=== PATIENT | male | born 1960 | race Caucasian/White ===

== ENCOUNTER 2021-09-15 18:10 | Inpatient (IN) ==
--- NOTE | 2021-09-15 19:08 | Emergency Department Note ---
Impression & Plan Cellulitis of left lower leg, Osteomyelitis of great toe of left foot ED Provider Note CHIEF COMPLAINT: L great toe infection HISTORY OF PRESENT ILLNESS: Cam Harmon is a 61 year old male with history of HTN, DLD, and DM2 who presents to the Emergency Department for evaluation of worsening infection to his left great toe x 1 week. About a week prior to the time of onset, the patient states that he had developed redness and swelling in his left calf and ankle. At that time, he did notice a callous type wound at the tip of his left great toe, but no open wound or injury that he can recall. The patient visited [facility] on 09/09/21 and was prescribed a 14 day course of Doxycycline for treatment of cellulitis to his cleft ky and ankle. Since he started taking the doxycycline, the patient states that the redness and swelling to his left calf and ankle had started to improve, however, he has since developed a worsening infection to his left great toe. Over the last several days, the skin of his great toe has become blistered and has sloughed off. He has also developed an open wound with drainage of purulent fluid and the redness and swelling has also become much worse. The patient has attempted to clean and debride the wound on his own at home, but as his symptoms have continued despite taking the doxycycline, he went back to [facility] today. While there, the patient had x-rays taken and as there were concerns for Osteomyelitis, he was sent to the ED for further evaluation. The patient does note that he was ill with fevers/chills for about 24 hours after receiving his flu shot last week but otherwise he denies ongoing fevers/chills, sore throat, cough, chest pain, s hortness of breath, abdominal pain, nausea, vomiting, diarrhea or urinary symptoms. Patient denies history of blood clots. He takes bASA daily but no other anticoagulants/antiplatelets. REVIEW OF SYSTEMS: 10 systems were reviewed and were negative unless otherwise stated in HPI as above PHYSICAL EXAM: VITALS: Vitals are noted on the nurse's note and reviewed by myself. Vital signs stable. General: Resting in bed, no acute distress HEENT: Normocephalic, PERRL, EOMI, mucous membranes moist, oropharynx clear Resp: Good inspiratory effort on room air, lung sounds clear bilaterally CV: Regular rate and rhythm, peripheral pulses palpated Abd: Soft, non-tender to palpation Integumentary/MSK: With attention to the LLE, the great toe is significantly erythematous and edematous with ulceration and skin sloughing to the dorsal aspect of the entire toe. There is a 1 cm open wound with discharge of purulent fluid just proximal to the toenail. The remainder of the foot, ankle and calf/camacho are erythematous and edematous with 1+ pitting edema circumferentially. Left medial calf is also tender to palpation. Able to move toes, sensation and d/p pulse intact. No additional open wounds or rashes appreciated. Moving all other extremities without apparent pain or difficulty Neuro: Awake, alert, interacting and answering questions appropriately Differential diagnosis includes cellulitis, abscess, osteomyelitis, MRSA infection, diabetic ulcer, DVT, necrotizing fasciitis, as well as others were considered EMERGENCY DEPARTMENT COURSE: Physical exam and history were performed. Nursing notes, EMR, and medication list were personally reviewed. Patient appears to have a worsening infection to his left great toe for about 1 week despite taking doxycycline for a cellulitic infection to his left lower leg as prescribed by [facility] on 09/09/21. Exam findings as above were concerning for cellulitis and possibly osteomyelitis given the deep wound and proximity to his distal toe. IV access was established, labs were drawn and reviewed by myself as below. Of note, no significant leukocytosis with a WBC 9.24, mild anemia with hgb 12.7, significantly elevated inflammatory markers with ESR at 88 and CRP 7.40 consistent with infectious process. Lactate also elevated at 2.3. On CMP, hypo natremic 130, normal renal indices, hyperglycemic 265 consistent with hx DM2, LFTs with elevated total protein 8.9, hypoalbuminemia 3.1, hyperglobulinemia 59. Blood cultures and wound cultures were also ordered and are pending. X-ray and Venous doppler US were also obtained to assess for bony involvement and possible DVT given the exam findings. Imaging was obtained and reviewed by radiologist and myself as below. Foot x-ray did show focal osteopenia at the distal tuft of the first digit distal phalanx with concern for osteomyelitis with overlying cellulitis. No evidence for DVT on US venous doppler LLE. The patient was reevaluated and appeared to be doing well. He was offered pain medication but declined. I discussed the results of the above findings with my attending, Dr. Villarreal as well as the patient and his at bedside. We discussed the necessity for treatment with IV antibiotics given the findings of cellulitis to his left lower extremity and osteomyelitis of his left great toe. He will also benefit from evaluation by Orthopedics vs. Podiatry for ongoing management of the wound to his toe. IV vancomycin and Zosyn were ordered to begin treatment. [facility]. After discussion, he agreed to evaluate the patient for further management. The patient verbalized his understanding and agreement with the treatment plan as above. The chart was completed utilizing [employer] Speech Voice Recognition Software. Grammatical errors, random word insertions, pronoun errors, and incomplete sentences are an occasional consequence of this system due to software limitations, ambient noise, and hardware issues. Any formal questions or concerns about the content, text, or information contained within the body of this dictation should be directly addressed to the provider for clarification. Past Med/Surg History Medical History (Updated 09/16/21 @ 01:08 by Janeen Miranda PA-C) DM2 (diabetes mellitus, type 2) Dyslipidemia GERD (gastroesophageal reflux disease) HTN (hypertension) Seasonal allergies Surgical History (Updated 09/15/21 @ 23:59 by Janeen Miranda PA-C) No pertinent past surgical history Social History (Updated 09/15/21 @ 23:58 by Janeen Miranda PA-C) Smoking Status: Never smoker Hx Substance Use: No Feels Safe at Home: Yes Allergies Allergies Allergy/AdvReac Type Severity Reaction Status Date / Time No Known Allergies Allergy Unknown Verified 09/15/21 19:53 Home Meds Home Medications Medication Instructions Recorded Confirmed multivitamin 1 tab PO DAILY #0 10/18/07 09/15/21 acetaminophen 500 mg tablet 1,000 mg PO DAILY 09/15/21 09/15/21 aspirin 81 mg tablet,delayed 81 mg PO DAILY 09/15/21 09/15/21 release lisinopril 20 1 tab PO DAILY 09/15/21 09/15/21 mg-hydrochlorothiazide 25 mg tablet loratadine 10 mg tablet (Claritin) 10 mg PO DAILY 09/15/21 09/15/21 metformin 1,000 mg tablet 1,000 mg PO DAILY 10/22/21 10/22/21 omeprazole 20 mg capsule,delayed 20 mg PO DAILY 09/15/21 09/15/21 release Results & Data (ED) Vital Signs Vital Signs - 24 hr 09/15/21 18:14 09/15/21 22:07 09/16/21 00:05 Temperature 36.3 C L Temperature Source Oral Pulse Rate 96 H Pulse Rate [Finger] 80 Respiratory Rate 18 18 18 Respiratory Effort / Characteristics Non-Labored Respiratory Depth Normal Blood Pressure 122/87 Blood Pressure [Left Arm] 123/80 125/77 Blood Pressure Mean 98 Blood Pressure Mean [Left Arm] 94 93 Blood Pressure Position [Left Arm] Lying Pulse Oximetry 100 98 98 Oxygen Delivery Method Room Air Room Air Sepsis Recent Fever Within 48 Hours No Sepsis New/Unexplained Change in Mental Status No Sepsis Action Taken by Nursing No Action Required Laboratory Data Result diagrams: 09/15/21 19:59 09/15/21 21:01 Lab Results 09/15/21 09/15/21 09/15/21 Range/Units 19:59 19:59 19:59 WBC 9.24 (4.8-10.8) K/uL RBC 3.75 L (4.7-6.1) M/uL Hgb 12.7 L (14.0-18.0) g/dL Hct 36.3 L (42-52) % MCV 96.8 (80-100) fL MCH 33.9 (25-34) pg MCHC 35.0 (32-36) g/dL RDW Std Deviation 43.1 (36.4-46.3) fL RDW Coeff of Tavares 12.1 (11.5-14.5) % Plt Count 373 (130-400) K/uL MPV 9.9 (7.4-10.4) fL Immature Gran % (Auto) 0.5 % Neut % (Auto) 62.1 % Lymph % (Auto) 24.8 % [place] % (Auto) 11.0 % Eos % (Auto) 1.1 % Baso % (Auto) 0.5 % Reticulocyte % (Auto) (0.5-2.0) % Neut # (Auto) 5.73 (1.4-6.5) K/uL Lymph # (Auto) 2.29 (1.2-3.4) K/uL [place] # (Auto) 1.02 H (0.11-0.59) K/uL Eos # (Auto) 0.10 (0-0.5) K/uL Baso # (Auto) 0.05 (0-0.2) K/uL Reticulocyte # (0.02-0.10) 10^6/uL Immature Gran # (Auto) 0.05 H (0.00-0.02) K/uL ESR 88 H (0-20) mm/hr PT (9.0-12.0) Seconds INR (0.9-1.1) Sodium 130 L (136-145) mmol/L Potassium (3.5-5.1) mmol/L Chloride 98 (98-107) mmol/L Carbon Dioxide 25 (21-32) mmol/L Anion Gap 7.0 (3-11) BUN 13 (7-18) mg/dl Creatinine 1.11 (0.6-1.4) mg/dl Est Cr Clr Drug Dosing 94.7 ml/min Est GFR ( Amer) 82.0 ml/min Est GFR (Non-Af Amer) 70.8 ml/min BUN/Creatinine Ratio 11.9 (10-20) Glucose 265 H (70-99) mg/dl Osmolality (280-300) mOsm/kg Lactate (0.4-2.0) mmol/L Calcium 9.6 (8.5-10.1) mg/dl Magnesium Cancelled Iron (35-175) mcg/dl TIBC (250-450) mcg/dl Transferrin (200-360) mg/dl Ferritin (8-388) ng/ml Total Bilirubin 0.8 (0.2-1) mg/dl AST (15-37) U/L ALT 133 H (12-78) U/L Alkaline Phosphatase 96 (45-117) U/L Total Creatine Kinase Cancelled C-Reactive Protein 7.40 H (0-0.29) mg/dl Total Protein 8.9 H (6.4-8.2) gm/dl Albumin 3.1 L (3.4-5.0) gm/dl Globulin 5.8 H (2.5-4.0) gm/dl Albumin/Globulin Ratio 0.5 L (0.9-2) Vitamin B12 (193-986) pg/ml Folate (>5.38) ng/ml TSH 0.969 (0.300-4.500) uIu/ml Ethyl Alcohol mg/dL (0-3) mg/dl COVID-19 Eval Order SARS-CoV-2 (PCR) (Negative) Blood Type Antibody Screen 09/15/21 09/15/21 09/15/21 Range/Units 19:59 19:59 19:59 WBC (4.8-10.8) K/uL RBC (4.7-6.1) M/uL Hgb (14.0-18.0) g/dL Hct (42-52) % MCV (80-100) fL MCH (25-34) pg MCHC (32-36) g/dL RDW Std Deviation (36.4-46.3) fL RDW Coeff of Tavares (11.5-14.5) % Plt Count (130-400) K/uL MPV (7.4-10.4) fL Immature Gran % (Auto) % Neut % (Auto) % Lymph % (Auto) % [place] % (Auto) % Eos % (Auto) % Baso % (Auto) % Reticulocyte % (Auto) (0.5-2.0) % Neut # (Auto) (1.4-6.5) K/uL Lymph # (Auto) (1.2-3.4) K/uL [place] # (Auto) (0.11-0.59) K/uL Eos # (Auto) (0-0.5) K/uL Baso # (Auto) (0-0.2) K/uL Reticulocyte # (0.02-0.10) 10^6/uL Immature Gran # (Auto) (0.00-0.02) K/uL ESR (0-20) mm/hr PT (9.0-12.0) Seconds INR (0.9-1.1) Sodium (136-145) mmol/L Potassium (3.5-5.1) mmol/L Chloride (98-107) mmol/L Carbon Dioxide (21-32) mmol/L Anion Gap (3-11) BUN (7-18) mg/dl Creatinine (0.6-1.4) mg/dl Est Cr Clr Drug Dosing ml/min Est GFR ( Amer) ml/min Est GFR (Non-Af Amer) ml/min BUN/Creatinine Ratio (10-20) Glucose (70-99) mg/dl Osmolality (280-300) mOsm/kg Lactate 2.3 H* (0.4-2.0) mmol/L Calcium (8.5-10.1) mg/dl Magnesium Iron (35-175) mcg/dl TIBC (250-450) mcg/dl Transferrin (200-360) mg/dl Ferritin (8-388) ng/ml Total Bilirubin (0.2-1) mg/dl AST (15-37) U/L ALT (12-78) U/L Alkaline Phosphatase (45-117) U/L Total Creatine Kinase C-Reactive Protein (0-0.29) mg/dl Total Protein (6.4-8.2) gm/dl Albumin (3.4-5.0) gm/dl Globulin (2.5-4.0) gm/dl Albumin/Globulin Ratio (0.9-2) Vitamin B12 (193-986) pg/ml Folate (>5.38) ng/ml TSH (0.300-4.500) uIu/ml Ethyl Alcohol mg/dL (0-3) mg/dl COVID-19 Eval Order Covid19 at [facility] SARS-CoV-2 (PCR) NEGATIVE (Negative) Blood Type Antibody Screen 09/15/21 09/15/21 09/15/21 Range/Units 21:01 22:25 22:25 WBC (4.8-10.8) K/uL RBC (4.7-6.1) M/uL Hgb (14.0-18.0) g/dL Hct (42-52) % MCV (80-100) fL MCH (25-34) pg MCHC (32-36) g/dL RDW Std Deviation (36.4-46.3) fL RDW Coeff of Tavares (11.5-14.5) % Plt Count (130-400) K/uL MPV (7.4-10.4) fL Immature Gran % (Auto) % Neut % (Auto) % Lymph % (Auto) % [place] % (Auto) % Eos % (Auto) % Baso % (Auto) % Reticulocyte % (Auto) (0.5-2.0) % Neut # (Auto) (1.4-6.5) K/uL Lymph # (Auto) (1.2-3.4) K/uL [place] # (Auto) (0.11-0.59) K/uL Eos # (Auto) (0-0.5) K/uL Baso # (Auto) (0-0.2) K/uL Reticulocyte # (0.02-0.10) 10^6/uL Immature Gran # (Auto) (0.00-0.02) K/uL ESR (0-20) mm/hr PT (9.0-12.0) Seconds INR (0.9-1.1) Sodium (136-145) mmol/L Potassium 3.9 (3.5-5.1) mmol/L Chloride (98-107) mmol/L Carbon Dioxide (21-32) mmol/L Anion Gap (3-11) BUN (7-18) mg/dl Creatinine (0.6-1.4) mg/dl Est Cr Clr Drug Dosing ml/min Est GFR ( Amer) ml/min Est GFR (Non-Af Amer) ml/min BUN/Creatinine Ratio (10-20) Glucose (70-99) mg/dl Osmolality 287 (280-300) mOsm/kg Lactate 1.3 (0.4-2.0) mmol/L Calcium (8.5-10.1) mg/dl Magnesium 2.0 Iron 28 L (35-175) mcg/dl TIBC 227 L (250-450) mcg/dl Transferrin 169 L (200-360) mg/dl Ferritin 1075.9 H (8-388) ng/ml Total Bilirubin (0.2-1) mg/dl AST 139 H (15-37) U/L ALT (12-78) U/L Alkaline Phosphatase (45-117) U/L Total Creatine Kinase 92 C-Reactive Protein (0-0.29) mg/dl Total Protein (6.4-8.2) gm/dl Albumin (3.4-5.0) gm/dl Globulin (2.5-4.0) gm/dl Albumin/Globulin Ratio (0.9-2) Vitamin B12 (193-986) pg/ml Folate (>5.38) ng/ml TSH (0.300-4.500) uIu/ml Ethyl Alcohol mg/dL (0-3) mg/dl COVID-19 Eval Order SARS-CoV-2 (PCR) (Negative) Blood Type Antibody Screen 09/15/21 09/15/21 09/15/21 Range/Units 22:25 22:25 22:25 WBC (4.8-10.8) K/uL RBC (4.7-6.1) M/uL Hgb (14.0-18.0) g/dL Hct (42-52) % MCV (80-100) fL MCH (25-34) pg MCHC (32-36) g/dL RDW Std Deviation (36.4-46.3) fL RDW Coeff of Tavares (11.5-14.5) % Plt Count (130-400) K/uL MPV (7.4-10.4) fL Immature Gran % (Auto) % Neut % (Auto) % Lymph % (Auto) % [place] % (Auto) % Eos % (Auto) % Baso % (Auto) % Reticulocyte % (Auto) 1.8 (0.5-2.0) % Neut # (Auto) (1.4-6.5) K/uL Lymph # (Auto) (1.2-3.4) K/uL [place] # (Auto) (0.11-0.59) K/uL Eos # (Auto) (0-0.5) K/uL Baso # (Auto) (0-0.2) K/uL Reticulocyte # 0.07 (0.02-0.10) 10^6/uL Immature Gran # (Auto) (0.00-0.02) K/uL ESR (0-20) mm/hr PT 10.4 (9.0-12.0) Seconds INR 1.0 (0.9-1.1) Sodium (136-145) mmol/L Potassium (3.5-5.1) mmol/L Chloride (98-107) mmol/L Carbon Dioxide (21-32) mmol/L Anion Gap (3-11) BUN (7-18) mg/dl Creatinine (0.6-1.4) mg/dl Est Cr Clr Drug Dosing ml/min Est GFR ( Amer) ml/min Est GFR (Non-Af Amer) ml/min BUN/Creatinine Ratio (10-20) Glucose (70-99) mg/dl Osmolality (280-300) mOsm/kg Lactate (0.4-2.0) mmol/L Calcium (8.5-10.1) mg/dl Magnesium Iron (35-175) mcg/dl TIBC (250-450) mcg/dl Transferrin (200-360) mg/dl Ferritin (8-388) ng/ml Total Bilirubin (0.2-1) mg/dl AST (15-37) U/L ALT (12-78) U/L Alkaline Phosphatase (45-117) U/L Total Creatine Kinase C-Reactive Protein (0-0.29) mg/dl Total Protein (6.4-8.2) gm/dl Albumin (3.4-5.0) gm/dl Globulin (2.5-4.0) gm/dl Albumin/Globulin Ratio (0.9-2) Vitamin B12 (193-986) pg/ml Folate (>5.38) ng/ml TSH (0.300-4.500) uIu/ml Ethyl Alcohol mg/dL (0-3) mg/dl COVID-19 Eval Order SARS-CoV-2 (PCR) (Negative) Blood Type O Negative Antibody Screen NEGATIVE 09/15/21 09/15/21 Range/Units 22:25 22:25 WBC (4.8-10.8) K/uL RBC (4.7-6.1) M/uL Hgb (14.0-18.0) g/dL Hct (42-52) % MCV (80-100) fL MCH (25-34) pg MCHC (32-36) g/dL RDW Std Deviation (36.4-46.3) fL RDW Coeff of Tavares (11.5-14.5) % Plt Count (130-400) K/uL MPV (7.4-10.4) fL Immature Gran % (Auto) % Neut % (Auto) % Lymph % (Auto) % [place] % (Auto) % Eos % (Auto) % Baso % (Auto) % Reticulocyte % (Auto) (0.5-2.0) % Neut # (Auto) (1.4-6.5) K/uL Lymph # (Auto) (1.2-3.4) K/uL [place] # (Auto) (0.11-0.59) K/uL Eos # (Auto) (0-0.5) K/uL Baso # (Auto) (0-0.2) K/uL Reticulocyte # (0.02-0.10) 10^6/uL Immature Gran # (Auto) (0.00-0.02) K/uL ESR (0-20) mm/hr PT (9.0-12.0) Seconds INR (0.9-1.1) Sodium (136-145) mmol/L Potassium (3.5-5.1) mmol/L Chloride (98-107) mmol/L Carbon Dioxide (21-32) mmol/L Anion Gap (3-11) BUN (7-18) mg/dl Creatinine (0.6-1.4) mg/dl Est Cr Clr Drug Dosing ml/min Est GFR ( Amer) ml/min Est GFR (Non-Af Amer) ml/min BUN/Creatinine Ratio (10-20) Glucose (70-99) mg/dl Osmolality (280-300) mOsm/kg Lactate (0.4-2.0) mmol/L Calcium (8.5-10.1) mg/dl Magnesium Iron (35-175) mcg/dl TIBC (250-450) mcg/dl Transferrin (200-360) mg/dl Ferritin (8-388) ng/ml Total Bilirubin (0.2-1) mg/dl AST (15-37) U/L ALT (12-78) U/L Alkaline Phosphatase (45-117) U/L Total Creatine Kinase C-Reactive Protein (0-0.29) mg/dl Total Protein (6.4-8.2) gm/dl Albumin (3.4-5.0) gm/dl Globulin (2.5-4.0) gm/dl Albumin/Globulin Ratio (0.9-2) Vitamin B12 1029 H (193-986) pg/ml Folate > 20.00 (>5.38) ng/ml TSH (0.300-4.500) uIu/ml Ethyl Alcohol mg/dL < 3.0 (0-3) mg/dl COVID-19 Eval Order SARS-CoV-2 (PCR) (Negative) Blood Type Antibody Screen Administered Medications Discontinued Medications Vancomycin HCl 2,750 mg/ (Sodium Chloride) 555 mls @ 200 mls/hr IV NOW ONE Stop: 09/16/21 00:09 Last Admin: 09/15/21 22:36 Dose: 200 mls/hr Documented by: [id number] Piperacillin Sod/Tazobactam Sod (Zosyn) 4.5 gm in 120 mls @ 240 mls/hr IV NOW ONE Stop: 09/15/21 21:49 Last Infusion: 09/15/21 22:36 Dose: 0 mls/hr Documented by: [id number] Admin: 09/15/21 21:58 Dose: 240 mls/hr Documented by: [id number] Sodium Chloride (Nss) 500 mls @ 500 mls/hr IV .Q1H STA Stop: 09/16/21 00:00 Last Infusion: 09/16/21 01:04 Dose: 0 mls/hr Documented by: [id number] Admin: 09/15/21 23:11 Dose: 500 mls/hr Documented by: [id number] Insulin Glargine (Insulin Glargine Solostar 100 Units/Ml 3 Ml Pen) 5 units SC NOW STA Stop: 09/16/21 00:35 Last Admin: 09/16/21 00:59 Dose: 5 units Documented by: [id number] Cosigned by: [id number] Imaging Data Radiologist's Impression: Foot X-Ray 09/15/21 19:33 XR foot LT min 3V routine CLINICAL HISTORY: erythema/swelling L foot particularly in the great toe TECHNIQUE: 3 views of the right foot were obtained. Comparison: None available at the time of this dictation. FINDINGS: There is focal osteopenia at the tuft of the first digit distal phalanx. The alignment is anatomic. The joint spaces are well preserved. Soft tissue swelling is seen throughout the foot, most prominently at the great toe. IMPRESSION: Focal osteopenia at the distal tuft of the first digit distal phalanx, concerning for osteomyelitis with overlying cellulitis. ACT 112: Negative or not required by law. Electronically signed by: Silver Driver M.D. 09/15/2021 8:00 PM Venous Doppler Study 09/15/21 19:33 US venous doppler LE LT CLINICAL HISTORY: pain,redness/swelling L calf, concern for clot COMPARISON: None available at the time of this dictation. TECHNIQUE: Left lower extremity real-time compression venous ultrasound with Color Doppler imaging. Utilizing real-time ultrasonic imaging multiple real time high-resolution ultrasonic images with compression and noncompression maneuvers of the deep venous system in addition to color doppler imaging were performed from the common femoral vein through the proximal calf veins. FINDINGS: Currently there is normal compressibility of the deep venous system from the common femoral vein through the proximal calf veins. No current evidence of acute thrombosis is identified. Incidental note is made of slow flow in the great saphenous vein. Impression: No evidence of deep venous thrombus. ACT 112: Negative or not required by law. Electronically signed by: Silver Driver M.D. 09/15/2021 8:46 PM Chest X-Ray 09/15/21 21:43 XR chest 1V portable CLINICAL HISTORY: hyponatremia TECHNIQUE: Single frontal radiograph of the chest was obtained. Comparison: None available at the time of this dictation. FINDINGS: No lines and tubes are seen. The cardiomediastinal silhouette is normal. The lungs are clear. No evidence of pleural effusion or pneumothorax. IMPRESSION: No acute chest disease. ACT 112: Negative or not required by law. Electronically signed by: Silver Driver M.D. 09/15/2021 10:28 PM Discharge Plan Visit Data Chief Complaint: Toe Injury/Pain Stated Complaint: SWOLLEN TOE, SORE TOE ED Provider: Brenton Diaz ED Midlevel Provider: Janeen Miranda Discharge Problem: Cellulitis of left lower leg, Osteomyelitis of great toe of left foot Patient Disposition: Admitted As Inpatient Forms Stand Alone Forms: [facility] Prescriptions Prescriptions: No Action multivitamin Tablet 1 tab PO DAILY Qty: 0 RF: 0 aspirin [Aspir-81] 81 mg Tablet,Delayed Release (Dr/Ec) 81 mg PO DAILY RF: 0 acetaminophen [Tylenol Ex Str Rapid Release] 500 mg Tablet 1,000 mg PO DAILY RF: 0 metformin 1,000 mg Tablet 1,000 mg PO DAILY RF: 0 omeprazole 20 mg Capsule,Delayed Release(Dr/Ec) 20 mg PO DAILY RF: 0 lisinopril-hydrochlorothiazide 20-25 mg Tablet 1 tab PO DAILY RF: 0 loratadine [Claritin] 10 mg Tablet 10 mg PO DAILY RF: 0 Referrals Referrals: PCP,NO [Primary Care Provider] - Addendum September 16, 2021 01:08 Patient was seen in conjunction with the physician lab assistant, please see her note for full details. Patient presented to the emergency department with some swelling and ulceration to the left great toe, he also has significant swelling and erythema of the left lower extremity below the knee. Ultrasound imaging is negative for DVT, given the physical appearance of the patient's ulceration to his toe in addition to the swelling he will be admitted for broad-spectrum antibiotic coverage and podiatry consultation. I do have concern that this is a surgical wound with significant extension of cellulitis proximally in the left lower extremity. Of note, patient does not have any crepitus or pain out of proportion to exam in the left lower extremity below the knee, low suspicion for gangrenous infection of the leg at this time. I expressed my concerns to the patient and his at the bedside, they are in agreement for admission, giancarlo martel will be admitted to the medicine service with plan for podiatry consultation and further management. Patient was admitted in hemodynamically stable condition.
--- NOTE | 2021-09-15 20:01 | XRay Report ---
XR foot LT min 3V routine CLINICAL HISTORY: erythema/swelling L foot particularly in the great toe TECHNIQUE: 3 views of the right foot were obtained. Comparison: None available at the time of this dictation. FINDINGS: There is focal osteopenia at the tuft of the first digit distal phalanx. The alignment is anatomic. T he joint spaces are well preserved. Soft tissue swelling is seen throughout the foot, most prominentl y at the great toe. IMPRESSION: Focal osteopenia at the distal tuft of the first digit distal phalanx, concerning for osteomyelitis w ith overlying cellulitis. ACT 112: Negative or not required by law. Electronically signed by: Silver Driver M.D. 09/15/2021 8:00 PM
[2021-09-15 20:11] LABS: Basophils # (auto) 0.05 K/uL (0-0.2); Basophils % (auto) 0.5 %; Eosinophils % (auto) 1.1 %; Hematocrit (blood only) 36.3 % (42-52); Hemoglobin 12.7 g/dL (14.0-18.0); Immature Granulocytes # (auto) 0.05 K/uL (0.00-0.02); Immature Granulocytes % (auto) 0.5 %; Lymphocytes # (auto) 2.29 K/uL (1.2-3.4); Lymphocytes % (auto) 24.8 %; Mean Corpuscular Hemoglobin 33.9 pg (25-34); Mean Corpuscular Volume 96.8 fL (80-100); Mean Platelet Volume 9.9 fL (7.4-10.4); Monocytes # (auto) 1.02 K/uL (0.11-0.59); Neutrophils # (auto) 5.73 K/uL (1.4-6.5); Neutrophils % (auto) 62.1 %; Platelet Count 373 K/uL (130-400); RDW Coefficient of Variation 12.1 % (11.5-14.5); RDW Standard Deviation 43.1 fL (36.4-46.3); Red Blood Count 3.75 M/uL (4.7-6.1); White Blood Count 9.24 K/uL (4.8-10.8)
[2021-09-15 20:42] LABS: Albumin Globulin Ratio 0.5 (0.9-2); Albumin Level 3.1 gm/dl (3.4-5.0); BUN Creatinine Ratio 11.9 (10-20); Bilirubin,Total 0.8 mg/dl (0.2-1); C Reactive Protein 7.4 mg/dl (0-0.29); Calcium 9.6 mg/dl (8.5-10.1); Creatinine Clr Calc Pharmacy 94.7 ml/min; Est GFR (Non-African American) 70.8 ml/min; Globulin 5.8 gm/dl (2.5-4.0); Total Protein 8.9 gm/dl (6.4-8.2)
--- NOTE | 2021-09-15 20:48 | Ultrasound Report ---
US venous doppler LE LT CLINICAL HISTORY: pain,redness/swelling L calf, concern for clot COMPARISON: None available at the time of this dictation. TECHNIQUE: Left lower extremity real-time compression venous ultrasound with Color Doppler imaging. Utilizing real-time ultrasonic imaging multiple real time high-resolution ultrasonic images with comp ression and noncompression maneuvers of the deep venous system in addition to color doppler imaging w ere performed from the common femoral vein through the proximal calf veins. FINDINGS: Currently there is normal compressibility of the deep venous system from the common femoral vein thro ugh the proximal calf veins. No current evidence of acute thrombosis is identified. Incidental note i s made of slow flow in the great saphenous vein. Impression: No evidence of deep venous thrombus. ACT 112: Negative or not required by law. Electronically signed by: Silver Driver M.D. 09/15/2021 8:46 PM
[2021-09-15] MEDS ORDERED: VANCOMYCIN HCL 2,750 MG in SODIUM CHLORIDE 0.9% 500 ML IV ONE (21:20)
[2021-09-15] MEDS ORDERED: VANCOMYCIN CONSULT ACTIVE PRN (21:20)
[2021-09-15] MEDS ORDERED: PIPERACILLIN/TAZOBACTAM 4.5 GM/120 ML BAG IV ONE (21:20)
[2021-09-15] MEDS ORDERED: PIPERACILL/TAZOBAC CONSULT ACTIVE PRN (21:20)
[2021-09-15 21:25] LABS: Potassium 3.9 mmol/L (3.5-5.1)
--- NOTE | 2021-09-15 22:30 | XRay Report ---
XR chest 1V portable CLINICAL HISTORY: hyponatremia TECHNIQUE: Single frontal radiograph of the chest was obtained. Comparison: None available at the time of this dictation. FINDINGS: No lines and tubes are seen. The cardiomediastinal silhouette is normal. The lungs are clear. No evid ence of pleural effusion or pneumothorax. IMPRESSION: No acute chest disease. ACT 112: Negative or not required by law. Electronically signed by: Silver Driver M.D. 09/15/2021 10:28 PM
[2021-09-15 22:35] LABS: Thyroid Stimulating Hormone 0.969 uIu/ml (0.300-4.500)
[2021-09-15 22:41] LABS: Reticulocyte % 1.8 % (0.5-2.0); Reticulocytes # 0.07 10^6/uL (0.02-0.10)
[2021-09-15 22:52] LABS: Ferritin 1075.9 ng/ml (8-388)
[2021-09-15 22:57] LABS: Prothrombin Time 10.4 Seconds (9.0-12.0)
[2021-09-15] MEDS ORDERED: SODIUM CHLORIDE 0.9% 500 ML IV STA (23:01)
[2021-09-15 23:38] LABS: Folate (Folic Acid) > 20.00 ng/ml (>5.38); Vitamin B12 1029 pg/ml (193-986)
--- NOTE | 2021-09-16 00:23 | History & Physical Report ---
Date of Service September 16, 2021 Assessment & Plan (1) Diabetic foot infection: Plan: Infected left great toe wound/swelling with spread to the lower leg Failed outpatient treatment Possible osteomyelitis on plain x-ray Possible sepsis hypertension, stable DM2 on oral medications, BSG elevated, unknown baseline control Mild hyponatremia Multifactorial : HCTZ ? EtOH intake fatty liver disease, possible cirrhosis on outpatient MRI of the liver 2019 ? Possible alcoholic liver disease given daily alcohol intake although patient denies alcohol abuse Normocytic anemia, ? Duration Occult GI bleed noted on testing at the ER history sigmoid diverticulosis on 2009 colonoscopy Patient denies abdominal pain/gross GI bleed complaints at home Medical telemetry given hyponatremia and possible sepsis CS, Daptomycin, Cefepime Orthopedics consult Re: Possible left great toe osteomyelitis Offload left lower extremity Careful correction of sodium Hold HCTZ for now Anemia work-up, transfuse PRBC if hemoglobin less than 7 and or for symptomatic anemia DC home aspirin given occult GI bleed given lack of indication for medication Rx on review of patient history. Inpatient GI consult for occult GI bleed, anemia Basal insulin, ISS BG goal 1 10-1 40, carb count coverage, check hemoglobin A1c DVT prophylaxis. SCDs Re: Occult GI bleed Full code Patient's requesting updates from providers. Ms. Irene Lazcano, contact #[phone]. Text document was generated using Whyd voice recognition software. It may contain grammatical or spelling errors. Kindly contact undersigned for clarification of any documentation item in question. History of Present Illness Chief Complaint: Worsening left toe infection Primary Care Provider: Dr. Matt Kennedy History obtained from patient and records. Medical history significant for hypertension, hyperlipidemia, DM2 on oral medic ations, fatty liver disease, daily alcohol intake, history sigmoid diverticulosis, past tobacco abuse. A month ago, patient noted a thickened wound on the tip of his left great toe. Patient self-medicating with OTC topical antibiotics. Worsening swelling progressing to involve the foot and left lower leg without chest pain, S OB, fever, chills. Patient seen at urgent care center last week. Patient prescribed doxycycline course which resulted in transient improvement of swelling. Last few days, left great toe skin noted to be blistered subsequently sloughing off with subsequent drainage of purulent fluid. Patient sent to ER by urgent care center for further evaluation due to concerns for osteomyelitis on outpatient x-rays. Patient received vancomycin and Zosyn at the ER. Medical History as above Colonoscopy 2009 showed sigmoid diverticulosis and anal lipoma Surgical History : Vasectomy, tonsillectomy/adenoidectomy Family History : DM, heart disease Personal/Social history : Past tobacco abuse, daily alcohol intake/denies abuse, insurance company employment Allergies Allergy/AdvReac Type Severity Reaction Status Date / Time No Known Allergies Allergy Unknown Verified 09/15/21 19:53 Home Medications Medication Instructions Recorded Confirmed Type multivitamin 1 tab PO DAILY #0 10/18/07 09/15/21 History acetaminophen 500 mg tablet 1,000 mg PO DAILY 09/15/21 09/15/21 History aspirin 81 mg tablet,delayed 81 mg PO DAILY 09/15/21 09/15/21 History release lisinopril 20 1 tab PO DAILY 09/15/21 09/15/21 History mg-hydrochlorothiazide 25 mg tablet loratadine 10 mg tablet (Claritin) 10 mg PO DAILY 09/15/21 09/15/21 History metformin 1,000 mg tablet 1,000 mg PO DAILY 09/15/21 09/15/21 History omeprazole 20 mg capsule,delayed 20 mg PO DAILY 09/15/21 09/15/21 History release Past Med/Surg History Medical History DM2 (diabetes mellitus, type 2) Dyslipidemia GERD (gastroesophageal reflux disease) HTN (hypertension) Seasonal allergies Surgical History (Updated 09/15/21 @ 23:59 by Janeen Miranda PA-C) No pertinent past surgical history Social History Smoking Status: Never smoker Do You Dip or Chew Tobacco: No; Hx Alcohol Use: Yes Hx Substance Use: No Preferred Language: Belarusian Communication Ability: Effective Cable Coverer Required: No Beliefs That Will Affect Care: None Current Living Situation: Spouse Other Information That Helps Us Care for You: No Feels Safe at Home: Yes Safety Concerns: Feels Safe At This Time Assistive Devices: None Review of Systems Review of Systems: As per HPI, all 10 systems reviewed, all other ROS negative Physical Exam Physical Exam: GENERAL: Comfortable, pleasant, obese, no respiratory distress SKIN: Pallor, warm HEENT: Bespectacled, pale palpebral conjunctivae, no ptosis, dry buccal mucosa NECK : Supple, short neck, no tenderness CHEST : CTA, no tenderness HEART : RRR, no obvious murmurs ABDOMEN: Some distention, nontender RECTAL : Intact sphincter, yellow stool (FOBT positive) EXTREMITIES : Dressing over erythematous left foot with minimal tenderness, minimal left lower leg swelling with minimal tenderness, no other conspicuous deformities noted NEUROLOGIC : Coherent, no facial asymmetry, no other gross focality Results & Data Results & Data ([facility]) Vital Signs (Past 12 Hours) Vital Signs Temp Pulse Resp BP BP Pulse Ox 09/15/21 22:07 18 123/80 98 09/15/21 18:14 36.3 C L 96 H 18 122/87 100 Laboratory Results Laboratory Results WBC 9.24 K/uL (4.8-10.8) 09/15/21 19:59 RBC 3.75 M/uL (4.7-6.1) L 09/15/21 19:59 Hgb 12.7 g/dL (14.0-18.0) L 09/15/21 19:59 Hct 36.3 % (42-52) L 09/15/21 19:59 MCV 96.8 fL (80-100) 09/15/21 19:59 MCH 33.9 pg (25-34) 09/15/21 19:59 MCHC 35.0 g/dL (32-36) 09/15/21 19:59 RDW Std Deviation 43.1 fL (36.4-46.3) 09/15/21 19:59 RDW Coeff of Tavares 12.1 % (11.5-14.5) 09/15/21 19:59 Plt Count 373 K/uL (130-400) 09/15/21 19:59 MPV 9.9 fL (7.4-10.4) 09/15/21 19:59 Immature Gran % (Auto) 0.5 % 09/15/21 19:59 Neut % (Auto) 62.1 % 09/15/21 19:59 Lymph % (Auto) 24.8 % 09/15/21 19:59 Mccracken % (Auto) 11.0 % 09/15/21 19:59 Eos % (Auto) 1.1 % 09/15/21 19:59 Baso % (Auto) 0.5 % 09/15/21 19:59 Reticulocyte % (Auto) 1.8 % (0.5-2.0) 09/15/21 22:25 Neut # (Auto) 5.73 K/uL (1.4-6.5) 09/15/21 19:59 Lymph # (Auto) 2.29 K/uL (1.2-3.4) 09/15/21 19:59 Mccracken # (Auto) 1.02 K/uL (0.11-0.59) H 09/15/21 19:59 Eos # (Auto) 0.10 K/uL (0-0.5) 09/15/21 19:59 Baso # (Auto) 0.05 K/uL (0-0.2) 09/15/21 19:59 Reticulocyte # 0.07 10^6/uL (0.02-0.10) 09/15/21 22:25 Immature Gran # (Auto) 0.05 K/uL (0.00-0.02) H 09/15/21 19:59 ESR 88 mm/hr (0-20) H 09/15/21 19:59 PT 10.4 Seconds (9.0-12.0) 09/15/21 22:25 INR 1.0 (0.9-1.1) 09/15/21 22:25 Sodium 130 mmol/L (136-145) L 09/15/21 19:59 Potassium 3.9 mmol/L (3.5-5.1) 09/15/21 21:01 Chloride 98 mmol/L (98-107) 09/15/21 19:59 Carbon Dioxide 25 mmol/L (21-32) 09/15/21 19:59 Anion Gap 7.0 (3-11) 09/15/21 19:59 BUN 13 mg/dl (7-18) 09/15/21 19:59 Creatinine 1.11 mg/dl (0.6-1.4) 09/15/21 19:59 Est Cr Clr Drug Dosing 94.7 ml/min 09/15/21 19:59 Est GFR ( Amer) 82.0 ml/min 09/15/21 19:59 Est GFR (Non-Af Amer) 70.8 ml/min 09/15/21 19:59 BUN/Creatinine Ratio 11.9 (10-20) 09/15/21 19:59 Glucose 265 mg/dl (70-99) H 09/15/21 19:59 Osmolality 287 mOsm/kg (280-300) 09/15/21 22:25 Lactate 1.3 mmol/L (0.4-2.0) 09/15/21 22:25 Calcium 9.6 mg/dl (8.5-10.1) 09/15/21 19:59 Magnesium 2.0 mg/dl (1.8-2.4) 09/15/21 21:01 Iron 28 mcg/dl (35-175) L 09/15/21 21:01 TIBC 227 mcg/dl (250-450) L 09/15/21 21:01 Transferrin 169 mg/dl (200-360) L 09/15/21 21:01 Ferritin 1075.9 ng/ml (8-388) H 09/15/21 21:01 Total Bilirubin 0.8 mg/dl (0.2-1) 09/15/21 19:59 AST 139 U/L (15-37) H 09/15/21 21:01 ALT 133 U/L (12-78) H 09/15/21 19:59 Alkaline Phosphatase 96 U/L (45-117) 09/15/21 19:59 Total Creatine Kinase 92 U/L (39-308) 09/15/21 21:01 C-Reactive Protein 7.40 mg/dl (0-0.29) H 09/15/21 19:59 Total Protein 8.9 gm/dl (6.4-8.2) H 09/15/21 19:59 Albumin 3.1 gm/dl (3.4-5.0) L 09/15/21 19:59 Globulin 5.8 gm/dl (2.5-4.0) H 09/15/21 19:59 Albumin/Globulin Ratio 0.5 (0.9-2) L 09/15/21 19:59 Vitamin B12 1029 pg/ml (193-986) H 09/15/21 22:25 Folate > 20.00 ng/ml (>5.38) 09/15/21 22:25 TSH 0.969 uIu/ml (0.300-4.500) 09/15/21 19:59 Ethyl Alcohol mg/dL < 3.0 mg/dl (0-3) 09/15/21 22:25 COVID-19 Eval Order Covid19 at [facility] 09/15/21 19:59 SARS-CoV-2 (PCR) NEGATIVE (Negative) 09/15/21 19:59 Blood Type O Negative 09/15/21 22:25 Antibody Screen NEGATIVE 09/15/21 22:25 Impressions Foot X-Ray 09/15/21 19:33 XR foot LT min 3V routine CLINICAL HISTORY: erythema/swelling L foot particularly in the great toe TECHNIQUE: 3 views of the right foot were obtained. Comparison: None available at the time of this dictation. FINDINGS: There is focal osteopenia at the tuft of the first digit distal phalanx. The alignment is anatomic. The joint spaces are well preserved. Soft tissue swelling is seen throughout the foot, most prominently at the great toe. IMPRESSION: Focal osteopenia at the distal tuft of the first digit distal phalanx, concerning for osteomyelitis with overlying cellulitis. ACT 112: Negative or not required by law. Electronically signed by: Silver Driver M.D. 09/15/2021 8:00 PM Venous Doppler Study 09/15/21 19:33 US venous doppler LE LT CLINICAL HISTORY: pain,redness/swelling L calf, concern for clot COMPARISON: None available at the time of this dictation. TECHNIQUE: Left lower extremity real-time compression venous ultrasound with Color Doppler imaging. Utilizing real-time ultrasonic imaging multiple real time high-resolution ultrasonic images with compression and noncompression maneuvers of the deep venous system in addition to color doppler imaging were performed from the common femoral vein through the proximal calf veins. FINDINGS: Currently there is normal compressibility of the deep venous system from the common femoral vein through the proximal calf veins. No current evidence of acute thrombosis is identified. Incidental note is made of slow flow in the great saphenous vein. Impression: No evidence of deep venous thrombus. ACT 112: Negative or not required by law. Electronically signed by: Silver Driver M.D. 09/15/2021 8:46 PM Chest X-Ray 09/15/21 21:43 XR chest 1V portable CLINICAL HISTORY: hyponatremia TECHNIQUE: Single frontal radiograph of the chest was obtained. Comparison: None available at the time of this dictation. FINDINGS: No lines and tubes are seen. The cardiomediastinal silhouette is normal. The lungs are clear. No evidence of pleural effusion or pneumothorax. IMPRESSION: No acute chest disease. ACT 112: Negative or not required by law. Electronically signed by: Silver Driver M.D. 09/15/2021 10:28 PM Diagnostic Findings Chest x-ray as per my interpretation: No congestion
[2021-09-16] MEDS ORDERED: INSULIN GLARGINE SOLOSTAR 100 UNITS/ML 3 ML PEN SC STA ×2 (00:34→03:19)
[2021-09-16] MEDS ORDERED: oxyCODONE HCL IR 5 MG TAB (IMMEDIATE RELEASE) PO PRN (02:46)
[2021-09-16] MEDS ORDERED: LORazepam 0.5 MG/1 ML VIAL IV PRN (02:46)
[2021-09-16] MEDS ORDERED: DEXTROSE 50% 50 ML SYRINGE IV PRN (02:46)
[2021-09-16] MEDS ORDERED: CARBOHYDRATES FOR HYPOGLYCEMIA PO PRN (02:46)
[2021-09-16] MEDS ORDERED: GLUCAGON FOR INJ 1 MG VIAL SQ PRN (02:46)
[2021-09-16] MEDS ORDERED: GLUCOSE 40% GEL 15 GM TUBE PO PRN (02:46)
[2021-09-16] MEDS ORDERED: GLUCOSE 10 TABS/TUBE PO PRN (02:46)
[2021-09-16] MEDS ORDERED: PROMETHAZINE HCL 12.5 MG in SODIUM CHLORIDE 0.9% 50 ML IV PRN (02:46)
[2021-09-16] MEDS ORDERED: MoRPHine SULFATE 4 MG/ML 1 ML CARP\\VIAL IV PRN (02:46)
[2021-09-16 02:52] LABS: Appearance Urine Clear (Clear); Bilirubin Urine Negative (Negative); Blood Urine Negative (Negative); Color Urine Yellow; Glucose Urine UA 3+ (Negative); Ketones Urine Negative (Negative); Leukocyte Esterase Urine Negative (Negative); Nitrite Urine Negative (Negative); Protein Urine Negative (Negative); Specific Gravity Urine 1.021 (1.000-1.030); Urobilinogen Urine Negative (Negative); pH Urine 5.5 (4.5-7.5)
[2021-09-16] MEDS: INSULIN ASPART 100 UNITS/ML 3 ML PEN SC SCH ×5 (03:13→20:38)
[2021-09-16] MEDS ORDERED: ACETAMINOPHEN 325 MG TAB PO PRN (03:22)
[2021-09-16] MEDS ORDERED: CEFEPIME CONSULT ACTIVE PRN (03:37)
[2021-09-16] MEDS ORDERED: CEFEPIME 2,000 MG in SYRINGE 0 ML IV SCH (04:00)
[2021-09-16] MEDS: DAPTOmycin 600 MG in SYRINGE 0 ML IV SCH (06:12)
[2021-09-16 06:14] LABS: Basophils # (auto) 0.08 K/uL (0-0.2); Basophils % (auto) 1.2 %; Eosinophils # (auto) 0.19 K/uL (0-0.5); Eosinophils % (auto) 2.8 %; Hematocrit (blood only) 32.3 % (42-52); Hemoglobin 10.8 g/dL (14.0-18.0); Immature Granulocytes # (auto) 0.04 K/uL (0.00-0.02); Immature Granulocytes % (auto) 0.6 %; Lymphocytes # (auto) 2.14 K/uL (1.2-3.4); Lymphocytes % (auto) 31.1 %; Mean Corpuscular Hemoglobin 33.2 pg (25-34); Mean Corpuscular Hgb Conc 33.4 g/dL (32-36); Mean Corpuscular Volume 99.4 fL (80-100); Mean Platelet Volume 9.4 fL (7.4-10.4); Monocytes # (auto) 0.83 K/uL (0.11-0.59); Monocytes % (auto) 12.1 %; Neutrophils % (auto) 52.2 %; Platelet Count 309 K/uL (130-400); RDW Coefficient of Variation 12.1 % (11.5-14.5); RDW Standard Deviation 44.4 fL (36.4-46.3); Red Blood Count 3.25 M/uL (4.7-6.1); White Blood Count 6.88 K/uL (4.8-10.8)
[2021-09-16 06:43] LABS: Albumin Level 2.3 gm/dl (3.4-5.0); BUN Creatinine Ratio 12.7 (10-20); Calcium 8.8 mg/dl (8.5-10.1); Creatinine Clr Calc Pharmacy 110.7 ml/min; Est GFR (Non-African American) 85.4 ml/min; Potassium 3.8 mmol/L (3.5-5.1)
[2021-09-16 06:47] LABS: Albumin Globulin Ratio 0.5 (0.9-2); Bilirubin,Total 0.6 mg/dl (0.2-1); Globulin 4.7 gm/dl (2.5-4.0)
[2021-09-16 07:40] LABS: Estimated Average Glucose 258 mg/dl; Hemoglobin A1C 10.6 % (4.5-5.6)
[2021-09-16] MEDS: MULTIVITAMIN TAB PO SCH (08:45)
[2021-09-16] MEDS: LORATADINE 10 MG TAB PO SCH (08:45)
[2021-09-16] MEDS: lisinopril 20 MG TAB PO SCH (08:46)
[2021-09-16] MEDS: INSULIN GLARGINE SOLOSTAR 100 UNITS/ML 3 ML PEN SC SCH ×2 (08:48→20:37)
[2021-09-16] MEDS: PANTOprazole 40 MG TAB PO SCH (08:48)
[2021-09-16] MEDS ORDERED: CONSULT PHARMACY SCH (09:00)
--- NOTE | 2021-09-16 10:08 | Orthopedic Consultation ---
Date of Consultation September 16, 2021 Assessment & Plan (1) Diabetic foot infection: Left great toe diabetic foot infection, concern for osteomyelitis. Explained to the patient that the x-rays were concerning for osteomyelitis of the distal tip of the phalanx, but with the wound draining over the IP joint, would need further MRI imaging to determine the extent of his infection. It is encouraging that he is responding to antibiotics. His options include conservative treatment with IV antibiotics and depending on the sensitivities from his cultures possibly oral antibiotics and wound care versus surgery which may involve amputation and antibiotics. Will obtain an MRI of the left foot and continue to monitor the results from the cultures and sensitivities and once those are obtained will review our options with the patient again. In the meantime continue IV antibiotics, can be weightbearing as tolerated through the heel. Would also add in warm soaks 3 times daily and replacement of dressings with Telfa, 4 x 4's, ABD, Pepito, and an John bandage as needed. The patient understood all my instructions and explanation; all their questions were satisfactorily addressed. We will continue to follow while in the hospital. Present on Admission?: Yes History of Present Illness Reason for Consultation: Left great toe infection Requesting Physician: Malaika Lizarraga MD Attending Physician: Brian Villegas MD History of Present Illness Cam is a pleasant 61 year old male with past medical history significant for DM and cellulitis, who has had LLE swelling and erythema that had been seen at urgent care and treated with Doxycycline. Prior to that he had self treated with topical antibiotic gel. He had also trialed soaks a few days ago prior to the dorsal wound opening. He came to the ED as outpatient treatment had failed and was admitted by the hospital service. He notes that since beeing admitted and placed on IV antibiotics the erythema and swelling has improved. Allergies Allergy/AdvReac Type Severity Reaction Status Date / Time No Known Allergies Allergy Unknown Verified 09/15/21 19:53 Home Medications Medication Instructions Recorded Confirmed Type multivitamin 1 tab PO DAILY #0 10/18/07 09/15/21 History acetaminophen 500 mg tablet 1,000 mg PO DAILY 09/15/21 09/15/21 History aspirin 81 mg tablet,delayed 81 mg PO DAILY 09/15/21 09/15/21 History release lisinopril 20 1 tab PO DAILY 09/15/21 09/15/21 History mg-hydrochlorothiazide 25 mg tablet loratadine 10 mg tablet (Claritin) 10 mg PO DAILY 09/15/21 09/15/21 History metformin 1,000 mg tablet 1,000 mg PO DAILY 09/15/21 09/15/21 History omeprazole 20 mg capsule,delayed 20 mg PO DAILY 09/15/21 09/15/21 History release Patient History Medical History DM2 (diabetes mellitus, type 2) Dyslipidemia GERD (gastroesophageal reflux disease) HTN (hypertension) Seasonal allergies Surgical History (Updated 09/15/21 @ 23:59 by Janeen Miranda PA-C) No pertinent past surgical history Social History Smoking Status: Never smoker Do You Dip or Chew Tobacco: No; Hx Alcohol Use: Yes Hx Substance Use: No Preferred Language: Burmese Communication Ability: Effective Home Care Scheduler Required: No Beliefs That Will Affect Care: None Current Living Situation: Spouse Other Information That Helps Us Care for You: No Feels Safe at Home: Yes Safety Concerns: Feels Safe At This Time Assistive Devices: None Review of Systems Review of Systems: All systems reviewed & are unremarkable except as noted in HPI & below Physical Exam Musculoskeletal: Extremities: + joint enlargement (Left great toe IP joint) and + lower leg abnormality (Left great toe: Swelling, erythema, open wound over the medial dorsal IP jt) LLE Calf soft non-tender Left great toe distal skin is dry and non-supportive of the deeper soft tissue. Results & Data ([facility]) Vital Signs (Past 12 Hours) Vital Signs Temp Pulse Pulse Resp BP BP BP 09/16/21 08:02 36.9 C 70 20 139/84 09/16/21 02:41 76 09/16/21 02:25 36.8 C 84 14 145/93 H 09/16/21 02:17 88 18 110/77 09/16/21 00:05 80 18 125/77 09/15/21 22:07 18 123/80 Pulse Ox 09/16/21 08:02 98 09/16/21 02:41 09/16/21 02:25 97 09/16/21 02:17 95 09/16/21 00:05 98 09/15/21 22:07 98 Laboratory Results 09/16/21 09/16/21 09/16/21 Range/Units 07:33 05:55 05:55 WBC 6.88 (4.8-10.8) K/uL RBC 3.25 L (4.7-6.1) M/uL Hgb 10.8 L (14.0-18.0) g/dL Hct 32.3 L (42-52) % MCV 99.4 (80-100) fL MCH 33.2 (25-34) pg MCHC 33.4 (32-36) g/dL RDW Std Deviation 44.4 (36.4-46.3) fL RDW Coeff of Tavares 12.1 (11.5-14.5) % Plt Count 309 (130-400) K/uL MPV 9.4 (7.4-10.4) fL Immature Gran % (Auto) 0.6 % Neut % (Auto) 52.2 % Lymph % (Auto) 31.1 % [place] % (Auto) 12.1 % Eos % (Auto) 2.8 % Baso % (Auto) 1.2 % Reticulocyte % (Auto) (0.5-2.0) % Neut # (Auto) 3.60 (1.4-6.5) K/uL Lymph # (Auto) 2.14 (1.2-3.4) K/uL [place] # (Auto) 0.83 H (0.11-0.59) K/uL Eos # (Auto) 0.19 (0-0.5) K/uL Baso # (Auto) 0.08 (0-0.2) K/uL Reticulocyte # (0.02-0.10) 10^6/uL Immature Gran # (Auto) 0.04 H (0.00-0.02) K/uL ESR (0-20) mm/hr PT (9.0-12.0) Seconds INR (0.9-1.1) Sodium 137 D (136-145) mmol/L Potassium 3.8 (3.5-5.1) mmol/L Chloride 104 (98-107) mmol/L Carbon Dioxide 27 (21-32) mmol/L Anion Gap 6.0 (3-11) BUN 12 (7-18) mg/dl Creatinine 0.95 (0.6-1.4) mg/dl Est Cr Clr Drug Dosing 110.7 ml/min Est GFR ( Amer) 99.0 ml/min Est GFR (Non-Af Amer) 85.4 ml/min BUN/Creatinine Ratio 12.7 (10-20) Glucose 218 H (70-99) mg/dl POC Glucose 177 H (70-99) mg/dl Estimat Average Glucose mg/dl Hemoglobin A1c (4.5-5.6) % Osmolality (280-300) mOsm/kg Lactate (0.4-2.0) mmol/L Calcium 8.8 (8.5-10.1) mg/dl Magnesium Iron (35-175) mcg/dl TIBC (250-450) mcg/dl Transferrin (200-360) mg/dl Ferritin (8-388) ng/ml Total Bilirubin 0.6 (0.2-1) mg/dl AST 113 H (15-37) U/L ALT 102 H (12-78) U/L Alkaline Phosphatase 82 (45-117) U/L Total Creatine Kinase C-Reactive Protein (0-0.29) mg/dl Total Protein 7.0 D (6.4-8.2) gm/dl Albumin 2.3 L (3.4-5.0) gm/dl Globulin 4.7 H (2.5-4.0) gm/dl Albumin/Globulin Ratio 0.5 L (0.9-2) Vitamin B12 (193-986) pg/ml Folate (>5.38) ng/ml TSH (0.300-4.500) uIu/ml Urine Color Urine Appearance (Clear) Urine pH (4.5-7.5) Ur Specific [place] (1.000-1.030) Urine Protein (Negative) Urine Glucose (UA) (Negative) Urine Ketones (Negative) Urine Blood (Negative) Urine Nitrite (Negative) Urine Bilirubin (Negative) Urine Urobilinogen (Negative) Ur Leukocyte Esterase (Negative) Urine Osmolality (500-800) mOsm/kg Ur Random Sodium mmol/L Ethyl Alcohol mg/dL (0-3) mg/dl COVID-19 Eval Order SARS-CoV-2 (PCR) (Negative) Blood Type Antibody Screen 09/16/21 09/16/21 09/16/21 Range/Units 03:11 02:40 02:40 WBC (4.8-10.8) K/uL RBC (4.7-6.1) M/uL Hgb (14.0-18.0) g/dL Hct (42-52) % MCV (80-100) fL MCH (25-34) pg MCHC (32-36) g/dL RDW Std Deviation (36.4-46.3) fL RDW Coeff of Tavares (11.5-14.5) % Plt Count (130-400) K/uL MPV (7.4-10.4) fL Immature Gran % (Auto) % Neut % (Auto) % Lymph % (Auto) % [place] % (Auto) % Eos % (Auto) % Baso % (Auto) % Reticulocyte % (Auto) (0.5-2.0) % Neut # (Auto) (1.4-6.5) K/uL Lymph # (Auto) (1.2-3.4) K/uL [place] # (Auto) (0.11-0.59) K/uL Eos # (Auto) (0-0.5) K/uL Baso # (Auto) (0-0.2) K/uL Reticulocyte # (0.02-0.10) 10^6/uL Immature Gran # (Auto) (0.00-0.02) K/uL ESR (0-20) mm/hr PT (9.0-12.0) Seconds INR (0.9-1.1) Sodium (136-145) mmol/L Potassium (3.5-5.1) mmol/L Chloride (98-107) mmol/L Carbon Dioxide (21-32) mmol/L Anion Gap (3-11) BUN (7-18) mg/dl Creatinine (0.6-1.4) mg/dl Est Cr Clr Drug Dosing ml/min Est GFR ( Amer) ml/min Est GFR (Non-Af Amer) ml/min BUN/Creatinine Ratio (10-20) Glucose (70-99) mg/dl POC Glucose 307 H* (70-99) mg/dl Estimat Average Glucose mg/dl Hemoglobin A1c (4.5-5.6) % Osmolality (280-300) mOsm/kg Lactate (0.4-2.0) mmol/L Calcium (8.5-10.1) mg/dl Magnesium Iron (35-175) mcg/dl TIBC (250-450) mcg/dl Transferrin (200-360) mg/dl Ferritin (8-388) ng/ml Total Bilirubin (0.2-1) mg/dl AST (15-37) U/L ALT (12-78) U/L Alkaline Phosphatase (45-117) U/L Total Creatine Kinase C-Reactive Protein (0-0.29) mg/dl Total Protein (6.4-8.2) gm/dl Albumin (3.4-5.0) gm/dl Globulin (2.5-4.0) gm/dl Albumin/Globulin Ratio (0.9-2) Vitamin B12 (193-986) pg/ml Folate (>5.38) ng/ml TSH (0.300-4.500) uIu/ml Urine Color Yellow Urine Appearance Clear (Clear) Urine pH 5.5 (4.5-7.5) Ur Specific [place] 1.021 (1.000-1.030) Urine Protein Negative (Negative) Urine Glucose (UA) 3+ H (Negative) Urine Ketones Negative (Negative) Urine Blood Negative (Negative) Urine Nitrite Negative (Negative) Urine Bilirubin Negative (Negative) Urine Urobilinogen Negative (Negative) Ur Leukocyte Esterase Negative (Negative) Urine Osmolality (500-800) mOsm/kg Ur Random Sodium 32 mmol/L Ethyl Alcohol mg/dL (0-3) mg/dl COVID-19 Eval Order SARS-CoV-2 (PCR) (Negative) Blood Type Antibody Screen 09/16/21 09/15/21 09/15/21 Range/Units 02:40 22:25 22:25 WBC (4.8-10.8) K/uL RBC (4.7-6.1) M/uL Hgb (14.0-18.0) g/dL Hct (42-52) % MCV (80-100) fL MCH (25-34) pg MCHC (32-36) g/dL RDW Std Deviation (36.4-46.3) fL RDW Coeff of Tavares (11.5-14.5) % Plt Count (130-400) K/uL MPV (7.4-10.4) fL Immature Gran % (Auto) % Neut % (Auto) % Lymph % (Auto) % [place] % (Auto) % Eos % (Auto) % Baso % (Auto) % Reticulocyte % (Auto) (0.5-2.0) % Neut # (Auto) (1.4-6.5) K/uL Lymph # (Auto) (1.2-3.4) K/uL [place] # (Auto) (0.11-0.59) K/uL Eos # (Auto) (0-0.5) K/uL Baso # (Auto) (0-0.2) K/uL Reticulocyte # (0.02-0.10) 10^6/uL Immature Gran # (Auto) (0.00-0.02) K/uL ESR (0-20) mm/hr PT (9.0-12.0) Seconds INR (0.9-1.1) Sodium (136-145) mmol/L Potassium (3.5-5.1) mmol/L Chloride (98-107) mmol/L Carbon Dioxide (21-32) mmol/L Anion Gap (3-11) BUN (7-18) mg/dl Creatinine (0.6-1.4) mg/dl Est Cr Clr Drug Dosing ml/min Est GFR ( Amer) ml/min Est GFR (Non-Af Amer) ml/min BUN/Creatinine Ratio (10-20) Glucose (70-99) mg/dl POC Glucose (70-99) mg/dl Estimat Average Glucose 258 mg/dl Hemoglobin A1c 10.6 H (4.5-5.6) % Osmolality (280-300) mOsm/kg Lactate (0.4-2.0) mmol/L Calcium (8.5-10.1) mg/dl Magnesium Iron (35-175) mcg/dl TIBC (250-450) mcg/dl Transferrin (200-360) mg/dl Ferritin (8-388) ng/ml Total Bilirubin (0.2-1) mg/dl AST (15-37) U/L ALT (12-78) U/L Alkaline Phosphatase (45-117) U/L Total Creatine Kinase C-Reactive Protein (0-0.29) mg/dl Total Protein (6.4-8.2) gm/dl Albumin (3.4-5.0) gm/dl Globulin (2.5-4.0) gm/dl Albumin/Globulin Ratio (0.9-2) Vitamin B12 (193-986) pg/ml Folate (>5.38) ng/ml TSH (0.300-4.500) uIu/ml Urine Color Urine Appearance (Clear) Urine pH (4.5-7.5) Ur Specific [place] (1.000-1.030) Urine Protein (Negative) Urine Glucose (UA) (Negative) Urine Ketones (Negative) Urine Blood (Negative) Urine Nitrite (Negative) Urine Bilirubin (Negative) Urine Urobilinogen (Negative) Ur Leukocyte Esterase (Negative) Urine Osmolality 441 L (500-800) mOsm/kg Ur Random Sodium mmol/L Ethyl Alcohol mg/dL < 3.0 (0-3) mg/dl COVID-19 Eval Order SARS-CoV-2 (PCR) (Negative) Blood Type Antibody Screen 09/15/21 09/15/21 09/15/21 Range/Units 22:25 22:25 22:25 WBC (4.8-10.8) K/uL RBC (4.7-6.1) M/uL Hgb (14.0-18.0) g/dL Hct (42-52) % MCV (80-100) fL MCH (25-34) pg MCHC (32-36) g/dL RDW Std Deviation (36.4-46.3) fL RDW Coeff of Tavares (11.5-14.5) % Plt Count (130-400) K/uL MPV (7.4-10.4) fL Immature Gran % (Auto) % Neut % (Auto) % Lymph % (Auto) % [place] % (Auto) % Eos % (Auto) % Baso % (Auto) % Reticulocyte % (Auto) 1.8 (0.5-2.0) % Neut # (Auto) (1.4-6.5) K/uL Lymph # (Auto) (1.2-3.4) K/uL [place] # (Auto) (0.11-0.59) K/uL Eos # (Auto) (0-0.5) K/uL Baso # (Auto) (0-0.2) K/uL Reticulocyte # 0.07 (0.02-0.10) 10^6/uL Immature Gran # (Auto) (0.00-0.02) K/uL ESR (0-20) mm/hr PT 10.4 (9.0-12.0) Seconds INR 1.0 (0.9-1.1) Sodium (136-145) mmol/L Potassium (3.5-5.1) mmol/L Chloride (98-107) mmol/L Carbon Dioxide (21-32) mmol/L Anion Gap (3-11) BUN (7-18) mg/dl Creatinine (0.6-1.4) mg/dl Est Cr Clr Drug Dosing ml/min Est GFR ( Amer) ml/min Est GFR (Non-Af Amer) ml/min BUN/Creatinine Ratio (10-20) Glucose (70-99) mg/dl POC Glucose (70-99) mg/dl Estimat Average Glucose mg/dl Hemoglobin A1c (4.5-5.6) % Osmolality (280-300) mOsm/kg Lactate (0.4-2.0) mmol/L Calcium (8.5-10.1) mg/dl Magnesium Iron (35-175) mcg/dl TIBC (250-450) mcg/dl Transferrin (200-360) mg/dl Ferritin (8-388) ng/ml Total Bilirubin (0.2-1) mg/dl AST (15-37) U/L ALT (12-78) U/L Alkaline Phosphatase (45-117) U/L Total Creatine Kinase C-Reactive Protein (0-0.29) mg/dl Total Protein (6.4-8.2) gm/dl Albumin (3.4-5.0) gm/dl Globulin (2.5-4.0) gm/dl Albumin/Globulin Ratio (0.9-2) Vitamin B12 1029 H (193-986) pg/ml Folate > 20.00 (>5.38) ng/ml TSH (0.300-4.500) uIu/ml Urine Color Urine Appearance (Clear) Urine pH (4.5-7.5) Ur Specific [place] (1.000-1.030) Urine Protein (Negative) Urine Glucose (UA) (Negative) Urine Ketones (Negative) Urine Blood (Negative) Urine Nitrite (Negative) Urine Bilirubin (Negative) Urine Urobilinogen (Negative) Ur Leukocyte Esterase (Negative) Urine Osmolality (500-800) mOsm/kg Ur Random Sodium mmol/L Ethyl Alcohol mg/dL (0-3) mg/dl COVID-19 Eval Order SARS-CoV-2 (PCR) (Negative) Blood Type Antibody Screen 09/15/21 09/15/21 09/15/21 Range/Units 22:25 22:25 22:25 WBC (4.8-10.8) K/uL RBC (4.7-6.1) M/uL Hgb (14.0-18.0) g/dL Hct (42-52) % MCV (80-100) fL MCH (25-34) pg MCHC (32-36) g/dL RDW Std Deviation (36.4-46.3) fL RDW Coeff of Tavares (11.5-14.5) % Plt Count (130-400) K/uL MPV (7.4-10.4) fL Immature Gran % (Auto) % Neut % (Auto) % Lymph % (Auto) % [place] % (Auto) % Eos % (Auto) % Baso % (Auto) % Reticulocyte % (Auto) (0.5-2.0) % Neut # (Auto) (1.4-6.5) K/uL Lymph # (Auto) (1.2-3.4) K/uL [place] # (Auto) (0.11-0.59) K/uL Eos # (Auto) (0-0.5) K/uL Baso # (Auto) (0-0.2) K/uL Reticulocyte # (0.02-0.10) 10^6/uL Immature Gran # (Auto) (0.00-0.02) K/uL ESR (0-20) mm/hr PT (9.0-12.0) Seconds INR (0.9-1.1) Sodium (136-145) mmol/L Potassium (3.5-5.1) mmol/L Chloride (98-107) mmol/L Carbon Dioxide (21-32) mmol/L Anion Gap (3-11) BUN (7-18) mg/dl Creatinine (0.6-1.4) mg/dl Est Cr Clr Drug Dosing ml/min Est GFR ( Amer) ml/min Est GFR (Non-Af Amer) ml/min BUN/Creatinine Ratio (10-20) Glucose (70-99) mg/dl POC Glucose (70-99) mg/dl Estimat Average Glucose mg/dl Hemoglobin A1c (4.5-5.6) % Osmolality 287 (280-300) mOsm/kg Lactate 1.3 (0.4-2.0) mmol/L Calcium (8.5-10.1) mg/dl Magnesium Iron (35-175) mcg/dl TIBC (250-450) mcg/dl Transferrin (200-360) mg/dl Ferritin (8-388) ng/ml Total Bilirubin (0.2-1) mg/dl AST (15-37) U/L ALT (12-78) U/L Alkaline Phosphatase (45-117) U/L Total Creatine Kinase C-Reactive Protein (0-0.29) mg/dl Total Protein (6.4-8.2) gm/dl Albumin (3.4-5.0) gm/dl Globulin (2.5-4.0) gm/dl Albumin/Globulin Ratio (0.9-2) Vitamin B12 (193-986) pg/ml Folate (>5.38) ng/ml TSH (0.300-4.500) uIu/ml Urine Color Urine Appearance (Clear) Urine pH (4.5-7.5) Ur Specific [place] (1.000-1.030) Urine Protein (Negative) Urine Glucose (UA) (Negative) Urine Ketones (Negative) Urine Blood (Negative) Urine Nitrite (Negative) Urine Bilirubin (Negative) Urine Urobilinogen (Negative) Ur Leukocyte Esterase (Negative) Urine Osmolality (500-800) mOsm/kg Ur Random Sodium mmol/L Ethyl Alcohol mg/dL (0-3) mg/dl COVID-19 Eval Order SARS-CoV-2 (PCR) (Negative) Blood Type O Negative Antibody Screen NEGATIVE 09/15/21 09/15/21 09/15/21 Range/Units 21:01 19:59 19:59 WBC (4.8-10.8) K/uL RBC (4.7-6.1) M/uL Hgb (14.0-18.0) g/dL Hct (42-52) % MCV (80-100) fL MCH (25-34) pg MCHC (32-36) g/dL RDW Std Deviation (36.4-46.3) fL RDW Coeff of Tavares (11.5-14.5) % Plt Count (130-400) K/uL MPV (7.4-10.4) fL Immature Gran % (Auto) % Neut % (Auto) % Lymph % (Auto) % [place] % (Auto) % Eos % (Auto) % Baso % (Auto) % Reticulocyte % (Auto) (0.5-2.0) % Neut # (Auto) (1.4-6.5) K/uL Lymph # (Auto) (1.2-3.4) K/uL [place] # (Auto) (0.11-0.59) K/uL Eos # (Auto) (0-0.5) K/uL Baso # (Auto) (0-0.2) K/uL Reticulocyte # (0.02-0.10) 10^6/uL Immature Gran # (Auto) (0.00-0.02) K/uL ESR (0-20) mm/hr PT (9.0-12.0) Seconds INR (0.9-1.1) Sodium (136-145) mmol/L Potassium 3.9 (3.5-5.1) mmol/L Chloride (98-107) mmol/L Carbon Dioxide (21-32) mmol/L Anion Gap (3-11) BUN (7-18) mg/dl Creatinine (0.6-1.4) mg/dl Est Cr Clr Drug Dosing ml/min Est GFR ( Amer) ml/min Est GFR (Non-Af Amer) ml/min BUN/Creatinine Ratio (10-20) Glucose (70-99) mg/dl POC Glucose (70-99) mg/dl Estimat Average Glucose mg/dl Hemoglobin A1c (4.5-5.6) % Osmolality (280-300) mOsm/kg Lactate (0.4-2.0) mmol/L Calcium (8.5-10.1) mg/dl Magnesium 2.0 Iron 28 L (35-175) mcg/dl TIBC 227 L (250-450) mcg/dl Transferrin 169 L (200-360) mg/dl Ferritin 1075.9 H (8-388) ng/ml Total Bilirubin (0.2-1) mg/dl AST 139 H (15-37) U/L ALT (12-78) U/L Alkaline Phosphatase (45-117) U/L Total Creatine Kinase 92 C-Reactive Protein (0-0.29) mg/dl Total Protein (6.4-8.2) gm/dl Albumin (3.4-5.0) gm/dl Globulin (2.5-4.0) gm/dl Albumin/Globulin Ratio (0.9-2) Vitamin B12 (193-986) pg/ml Folate (>5.38) ng/ml TSH (0.300-4.500) uIu/ml Urine Color Urine Appearance (Clear) Urine pH (4.5-7.5) Ur Specific [place] (1.000-1.030) Urine Protein (Negative) Urine Glucose (UA) (Negative) Urine Ketones (Negative) Urine Blood (Negative) Urine Nitrite (Negative) Urine Bilirubin (Negative) Urine Urobilinogen (Negative) Ur Leukocyte Esterase (Negative) Urine Osmolality (500-800) mOsm/kg Ur Random Sodium mmol/L Ethyl Alcohol mg/dL (0-3) mg/dl COVID-19 Eval Order Covid19 at [facility] SARS-CoV-2 (PCR) NEGATIVE (Negative) Blood Type Antibody Screen 09/15/21 09/15/21 09/15/21 Range/Units 19:59 19:59 19:59 WBC (4.8-10.8) K/uL RBC (4.7-6.1) M/uL Hgb (14.0-18.0) g/dL Hct (42-52) % MCV (80-100) fL MCH (25-34) pg MCHC (32-36) g/dL RDW Std Deviation (36.4-46.3) fL RDW Coeff of Tavares (11.5-14.5) % Plt Count (130-400) K/uL MPV (7.4-10.4) fL Immature Gran % (Auto) % Neut % (Auto) % Lymph % (Auto) % [place] % (Auto) % Eos % (Auto) % Baso % (Auto) % Reticulocyte % (Auto) (0.5-2.0) % Neut # (Auto) (1.4-6.5) K/uL Lymph # (Auto) (1.2-3.4) K/uL [place] # (Auto) (0.11-0.59) K/uL Eos # (Auto) (0-0.5) K/uL Baso # (Auto) (0-0.2) K/uL Reticulocyte # (0.02-0.10) 10^6/uL Immature Gran # (Auto) (0.00-0.02) K/uL ESR 88 H (0-20) mm/hr PT (9.0-12.0) Seconds INR (0.9-1.1) Sodium 130 L (136-145) mmol/L Potassium (3.5-5.1) mmol/L Chloride 98 (98-107) mmol/L Carbon Dioxide 25 (21-32) mmol/L Anion Gap 7.0 (3-11) BUN 13 (7-18) mg/dl Creatinine 1.11 (0.6-1.4) mg/dl Est Cr Clr Drug Dosing 94.7 ml/min Est GFR ( Amer) 82.0 ml/min Est GFR (Non-Af Amer) 70.8 ml/min BUN/Creatinine Ratio 11.9 (10-20) Glucose 265 H (70-99) mg/dl POC Glucose (70-99) mg/dl Estimat Average Glucose mg/dl Hemoglobin A1c (4.5-5.6) % Osmolality (280-300) mOsm/kg Lactate 2.3 H* (0.4-2.0) mmol/L Calcium 9.6 (8.5-10.1) mg/dl Magnesium Cancelled Iron (35-175) mcg/dl TIBC (250-450) mcg/dl Transferrin (200-360) mg/dl Ferritin (8-388) ng/ml Total Bilirubin 0.8 (0.2-1) mg/dl AST (15-37) U/L ALT 133 H (12-78) U/L Alkaline Phosphatase 96 (45-117) U/L Total Creatine Kinase Cancelled C-Reactive Protein 7.40 H (0-0.29) mg/dl Total Protein 8.9 H (6.4-8.2) gm/dl Albumin 3.1 L (3.4-5.0) gm/dl Globulin 5.8 H (2.5-4.0) gm/dl Albumin/Globulin Ratio 0.5 L (0.9-2) Vitamin B12 (193-986) pg/ml Folate (>5.38) ng/ml TSH 0.969 (0.300-4.500) uIu/ml Urine Color Urine Appearance (Clear) Urine pH (4.5-7.5) Ur Specific [place] (1.000-1.030) Urine Protein (Negative) Urine Glucose (UA) (Negative) Urine Ketones (Negative) Urine Blood (Negative) Urine Nitrite (Negative) Urine Bilirubin (Negative) Urine Urobilinogen (Negative) Ur Leukocyte Esterase (Negative) Urine Osmolality (500-800) mOsm/kg Ur Random Sodium mmol/L Ethyl Alcohol mg/dL (0-3) mg/dl COVID-19 Eval Order SARS-CoV-2 (PCR) (Negative) Blood Type Antibody Screen 09/15/21 Range/Units 19:59 WBC 9.24 (4.8-10.8) K/uL RBC 3.75 L (4.7-6.1) M/uL Hgb 12.7 L (14.0-18.0) g/dL Hct 36.3 L (42-52) % MCV 96.8 (80-100) fL MCH 33.9 (25-34) pg MCHC 35.0 (32-36) g/dL RDW Std Deviation 43.1 (36.4-46.3) fL RDW Coeff of [place] 12.1 (11.5-14.5) % Plt Count 373 (130-400) K/uL MPV 9.9 (7.4-10.4) fL Immature Gran % (Auto) 0.5 % Neut % (Auto) 62.1 % Lymph % (Auto) 24.8 % [place] % (Auto) 11.0 % Eos % (Auto) 1.1 % Baso % (Auto) 0.5 % Reticulocyte % (Auto) (0.5-2.0) % Neut # (Auto) 5.73 (1.4-6.5) K/uL Lymph # (Auto) 2.29 (1.2-3.4) K/uL [place] # (Auto) 1.02 H (0.11-0.59) K/uL Eos # (Auto) 0.10 (0-0.5) K/uL Baso # (Auto) 0.05 (0-0.2) K/uL Reticulocyte # (0.02-0.10) 10^6/uL Immature Gran # (Auto) 0.05 H (0.00-0.02) K/uL ESR (0-20) mm/hr PT (9.0-12.0) Seconds INR (0.9-1.1) Sodium (136-145) mmol/L Potassium (3.5-5.1) mmol/L Chloride (98-107) mmol/L Carbon Dioxide (21-32) mmol/L Anion Gap (3-11) BUN (7-18) mg/dl Creatinine (0.6-1.4) mg/dl Est Cr Clr Drug Dosing ml/min Est GFR ( Amer) ml/min Est GFR (Non-Af Amer) ml/min BUN/Creatinine Ratio (10-20) Glucose (70-99) mg/dl POC Glucose (70-99) mg/dl Estimat Average Glucose mg/dl Hemoglobin A1c (4.5-5.6) % Osmolality (280-300) mOsm/kg Lactate (0.4-2.0) mmol/L Calcium (8.5-10.1) mg/dl Magnesium Iron (35-175) mcg/dl TIBC (250-450) mcg/dl Transferrin (200-360) mg/dl Ferritin (8-388) ng/ml Total Bilirubin (0.2-1) mg/dl AST (15-37) U/L ALT (12-78) U/L Alkaline Phosphatase (45-117) U/L Total Creatine Kinase C-Reactive Protein (0-0.29) mg/dl Total Protein (6.4-8.2) gm/dl Albumin (3.4-5.0) gm/dl Globulin (2.5-4.0) gm/dl Albumin/Globulin Ratio (0.9-2) Vitamin B12 (193-986) pg/ml Folate (>5.38) ng/ml TSH (0.300-4.500) uIu/ml Urine Color Urine Appearance (Clear) Urine pH (4.5-7.5) Ur Specific [place] (1.000-1.030) Urine Protein (Negative) Urine Glucose (UA) (Negative) Urine Ketones (Negative) Urine Blood (Negative) Urine Nitrite (Negative) Urine Bilirubin (Negative) Urine Urobilinogen (Negative) Ur Leukocyte Esterase (Negative) Urine Osmolality (500-800) mOsm/kg Ur Random Sodium mmol/L Ethyl Alcohol mg/dL (0-3) mg/dl COVID-19 Eval Order SARS-CoV-2 (PCR) (Negative) Blood Type Antibody Screen Microbiology 09/15/21 20:41 Gram Stain - Final Toe,Left Great Diagnostic Findings XR foot LT min 3V routine CLINICAL HISTORY: erythema/swelling L foot particularly in the great toe TECHNIQUE: 3 views of the right foot were obtained. Comparison: None available at the time of this dictation. FINDINGS: There is focal osteopenia at the tuft of the first digit distal phalanx. The alignment is anatomic. The joint spaces are well preserved. Soft tissue swelling is seen throughout the foot, most prominently at the great toe. IMPRESSION: Focal osteopenia at the distal tuft of the first digit distal phalanx, concerning for osteomyelitis with overlying cellulitis.
--- NOTE | 2021-09-16 11:41 | Magnetic Resonance Report ---
MR foot LT w/o con CLINICAL HISTORY: Left great toe infection. Evaluate for osteomyelitis. COMPARISON STUDY: Left foot radiographs September 15, 2021. TECHNIQUE: Utilizing a 1.5 Kerry magnet and dedicated coil, multiplanar, multi echo imaging of the le ft forefoot was performed without intravenous contrast. FINDINGS: Exam is mildly compromised by motion artifact. Extensive dorsal subcutaneous edema of the l eft foot is noted. There is marked marrow edema with diminished T1 signal within the distal phalanx o f the left first toe consistent with acute osteomyelitis. There is extensive edema of the left first toe consistent with cellulitis. Note is made of a 1.9 cm fluid collection along the dorsal lateral as pect of the distal phalanx suggestive of an abscess. There is also moderate marrow edema within the p roximal phalanx of the left first toe with mildly diminished T1 signal. There is no marrow edema with in the left first metatarsal. No additional sites of marrow edema are present. IMPRESSION: 1. Findings consistent with acute osteomyelitis of the distal phalanx of the left first toe and the m id to distal aspect of the proximal phalanx of the left first toe. 2. Left first toe cellulitis. 1.9 cm fluid collection along the dorsal lateral aspect of the distal p halanx of the left first toe suggestive of an abscess. 3. Extensive dorsal subcutaneous trace edema of the left foot. ACT 112: Negative or not required by law. Electronically signed by: Antonio Fleming M.D. 09/16/2021 11:40 AM
--- NOTE | 2021-09-16 14:45 | Hospitalist Progress Note ---
Date of Service September 16, 2021 Assessment & Plan (1) Diabetic foot infection: Plan: Left great toe diabetic foot infection/Osteomyelitis/Abscess-POA Sepsis-POA -Foot MRI:Findings consistent with acute osteomyelitis of the distal phalanx of the left first toe and the mid to distal aspect of the proximal phalanx of the left first toe. Left first toe cellulitis. 1.9 cm fluid collection along the dorsal lateral aspect of the distal phalanx of the left first toe suggestive of an abscess. Extensive dorsal subcutaneous trace edema of the left foot. -Blood cultures pending Cultures pending Appreciate orthopedics input Denies any pain Continue daptomycin, cefepime Will need surgical intervention Continue wound care Consider ID evaluation when appropriate Hyponatremia Likely due to HCTZ Sodium levels improved to 137 Hold HCTZ for now Monitor Hypertension stable Continue lisinopril DM II Poorly controlled HbA1c 10.6 Hold p.o. meds Continue insulin therapy while hospitalized Monitor BGs Alcohol use Denies any abuse Monitor for withdrawal Last drink 1 week ago as per patient Fatty liver disease Possible cirrhosis on outpatient MRI of the liver 2019 LFTs trending down Monitor Normocytic anemia Likely multifactorial--iron deficiency, alcohol use, H/O diverticulosis +FOBT No active bleeding Needs follow-up with GI as outpatient Monitor CBC DVT Px: SCDs Re:+FOBT, Plan for surgery Code Status Full code Admission and Anticipated Discharge Date Admission Date: September 16, 2021 Subjective Patient is seen and examined at bedside Reports having left toe swelling, erythema Denies any pain, fever, chills Also denies any chest pain, shortness of breath, dizziness, nausea, abdominal pain MRI consistent with osteomyelitis Review of Systems Review of Systems: All systems reviewed & are unremarkable except as noted in Subjective Physical Exam Physical Exam: Physical Exam: Vitals signs as noted above General Appearance:Obese, no apparent distress Head: normocephalic, Atraumatic Eyes: normal inspection, EOMI Neck: supple, Trachea midline Respiratory/Chest: Normal breath sounds, CTA Cardiovascular: S1, S2, No murmur Abdomen/GI:Soft, Non tender, Bowel sounds present Extremities/Musculoskeletal:normal inspection, left lower extremity edema, great toe wound, swelling, erythema Neurologic/Psych:AAOX3, grossly no focal neurological deficits Skin: normal color, warm Results & Data Results & Data ([facility]) Vital Signs (Past 12 Hours) Vital Signs Temp Pulse Pulse Resp BP Pulse Ox 10/23/21 11:52 36.5 C 73 22 142/80 H 98 09/16/21 08:02 36.9 C 70 20 139/84 98 09/16/21 02:41 76 Laboratory Results Short CBC 09/15/21 09/16/21 Range/Units 19:59 05:55 WBC 9.24 6.88 (4.8-10.8) K/uL Hgb 12.7 L 10.8 L (14.0-18.0) g/dL Hct 36.3 L 32.3 L (42-52) % Plt Count 373 309 (130-400) K/uL BMP 09/15/21 09/15/21 09/16/21 19:59 21:01 05:55 Sodium 130 L 137 D Potassium 3.9 3.8 Chloride 98 104 Carbon Dioxide 25 27 BUN 13 12 Creatinine 1.11 0.95 Glucose 265 H 218 H Calcium 9.6 8.8 Cardiac Enzymes 09/15/21 09/15/21 Range/Units 19:59 21:01 Total Creatine Kinase Cancelled 92 Liver Function 09/15/21 09/15/21 09/16/21 Range/Units 19:59 21:01 05:55 Total Bilirubin 0.8 0.6 (0.2-1) mg/dl AST 139 H 113 H (15-37) U/L ALT 133 H 102 H (12-78) U/L Alkaline Phosphatase 96 82 (45-117) U/L Albumin 3.1 L 2.3 L (3.4-5.0) gm/dl Urine 09/16/21 Range/Units 02:40 Urine Color Yellow Urine Appearance Clear (Clear) Urine pH 5.5 (4.5-7.5) Ur Specific [place] 1.021 (1.000-1.030) Urine Protein Negative (Negative) Urine Glucose (UA) 3+ H (Negative)
[2021-09-16] MEDS: CEFEPIME 2,000 MG in SYRINGE 0 ML IV SCH ×2 (15:01→19:36)
--- NOTE | 2021-09-16 17:42 | Gastrointestinal Consultation ---
Date of Consultation September 16, 2021 History of Present Illness Attending Physician: Brian Villegas MD History of Present Illness Reason for consult: anemia HPI: 61 yo M admit with osteomyelitis, noted to have increased LFT's and normocytic anemia Hgb 10 with Ferritin > 1000. No Gi symptoms, no evidence of gross GI bleeding. Denies NSAIDs other than baby ASA No recent EGD or cscopy. Of note, his LFT's are chronically increased and he has a h/o NAFLD. PE: Comfortable, pleasant HEENT: oc clear, anicteric CV: RRR Resp: CTA Abd: soft Labs reviewed. A/P: Anemia, no gross GIB, possibly anemia of chronic disease due to osteomyelitis LFT abnl, likely NAFLD Hyperferritinemia - Please complete hematologic w/u anemia. No indication for urgent endoscopy in absence of overt GIB. Please contact us on pt discharge to arrange for outpt colonoscopy. - Hyperferritinemia likely acute phase reactant, can check HFE serologies as outpt Please call with questions. Allergies Allergy/AdvReac Type Severity Reaction Status Date / Time No Known Allergies Allergy Unknown Verified 09/15/21 19:53 Home Medications Medication Instructions Recorded Confirmed Type multivitamin 1 tab PO DAILY #0 10/18/07 09/15/21 History acetaminophen 500 mg tablet 1,000 mg PO DAILY 09/15/21 09/15/21 History aspirin 81 mg tablet,delayed 81 mg PO DAILY 09/15/21 09/15/21 History release lisinopril 20 1 tab PO DAILY 09/15/21 09/15/21 History mg-hydrochlorothiazide 25 mg tablet loratadine 10 mg tablet (Claritin) 10 mg PO DAILY 09/15/21 09/15/21 History metformin 1,000 mg tablet 1,000 mg PO DAILY 09/15/21 09/15/21 History omeprazole 20 mg capsule,delayed 20 mg PO DAILY 09/15/21 09/15/21 History release Patient History Medical History DM2 (diabetes mellitus, type 2) Dyslipidemia GERD (gastroesophageal reflux disease) HTN (hypertension) Seasonal allergies Surgical History (Updated 09/15/21 @ 23:59 by Janeen Miranda PA-C) No pertinent past surgical history Social History Smoking Status: Never smoker Do You Dip or Chew Tobacco: No; Hx Alcohol Use: Yes Hx Substance Use: No Preferred Language: Tajik Communication Ability: Effective Head [employer] Required: No Beliefs That Will Affect Care: None Current Living Situation: Spouse Other Information That Helps Us Care for You: No Feels Safe at Home: Yes Safety Concerns: Feels Safe At This Time Assistive Devices: None Results & Data ([facility]) Vital Signs (Past 12 Hours) Vital Signs Temp Pulse Resp BP Pulse Ox 09/16/21 14:51 36.6 C 73 20 133/81 98 09/16/21 11:52 36.5 C 73 22 142/80 H 98 09/16/21 08:02 36.9 C 70 20 139/84 98
[2021-09-16] MEDS ORDERED: INSULIN GLARGINE SOLOSTAR 100 UNITS/ML 3 ML PEN SC SCH ×2 (21:00)
[2021-09-17] MEDS: CEFEPIME 2,000 MG in SYRINGE 0 ML IV SCH ×3 (04:05→20:26)
[2021-09-17] MEDS: DAPTOmycin 600 MG in SYRINGE 0 ML IV SCH (05:35)
[2021-09-17 06:35] LABS: Hematocrit (blood only) 35.9 % (42-52); Hemoglobin 12.1 g/dL (14.0-18.0); Mean Corpuscular Hemoglobin 33.3 pg (25-34); Mean Corpuscular Hgb Conc 33.7 g/dL (32-36); Mean Corpuscular Volume 98.9 fL (80-100); Mean Platelet Volume 9.6 fL (7.4-10.4); Platelet Count 361 K/uL (130-400); RDW Coefficient of Variation 12.3 % (11.5-14.5); RDW Standard Deviation 44.7 fL (36.4-46.3); Red Blood Count 3.63 M/uL (4.7-6.1); White Blood Count 6.38 K/uL (4.8-10.8)
[2021-09-17 07:05] LABS: BUN Creatinine Ratio 12.3 (10-20); Creatinine Clr Calc Pharmacy 131.5 ml/min; Est GFR (Non-African American) 95.7 ml/min; Potassium 4.4 mmol/L (3.5-5.1)
[2021-09-17] MEDS ORDERED: SODIUM CHLORIDE 0.9% 1000ML 1,000 ML IV ONE (09:11)
[2021-09-17] MEDS: INSULIN ASPART 100 UNITS/ML 3 ML PEN SC SCH ×4 (09:22→21:19)
[2021-09-17] MEDS: INSULIN GLARGINE SOLOSTAR 100 UNITS/ML 3 ML PEN SC SCH ×2 (09:22→21:18)
[2021-09-17] MEDS: lisinopril 20 MG TAB PO SCH (09:23)
[2021-09-17] MEDS: PANTOprazole 40 MG TAB PO SCH (09:24)
[2021-09-17] MEDS: LORATADINE 10 MG TAB PO SCH (09:24)
[2021-09-17] MEDS: MULTIVITAMIN TAB PO SCH (09:24)
--- NOTE | 2021-09-17 11:25 | Orthopedic Progress Note ---
Date of Service September 17, 2021 Assessment & Plan (1) Diabetic foot infection: Plan: Left great toe diabetic foot infection, concern for osteomyelitis. Explained to the patient that the MRI findings for osteomyelitis of the distal and proximal phalanx left great toe. It is encouraging that he is responding to antibiotics. His options continue to include conservative treatment with IV antibiotics and depending on the sensitivities from his cultures possibly oral antibiotics and wound care versus surgery which would involve amputation and antibiotics. The patient would like to see how conservative measure fair over next 24 hours. Continue IV antibiotics, can be weightbearing as tolerated through the heel. Continue warm soaks 3 times daily and replacement of dressings with Telfa, 4 x 4's, ABD, Pepito, and an John bandage as needed. Will make NPO after midnight and place on the add-on list for tomorrow in case patient changes his mind and desires surgery. The patient understood all my instructions and explanation; all their questions were satisfactorily addressed. Continue care per primary service. We will continue to follow while in the hospital. Admission and Anticipated Discharge Date Admission Date: September 16, 2021 Subjective Feeling better Review of Systems Review of Systems: All systems reviewed & are unremarkable except as noted in HPI & below Physical Exam Musculoskeletal: Extremities: + joint enlargement (Left great toe, IP joint) and + foot abnormality (Decreased swelling &erythema. Continued draining wound dorsal medial) Left (Great Toe) Results & Data ([facility]) Vital Signs (Past 12 Hours) Vital Signs Temp Pulse Resp BP Pulse Ox 09/17/21 06:41 36.8 C 67 16 123/78 98 Diagnostic Findings MR foot LT w/o con CLINICAL HISTORY: Left great toe infection. Evaluate for osteomyelitis. COMPARISON STUDY: Left foot radiographs September 15, 2021. TECHNIQUE: Utilizing a 1.5 Kerry magnet and dedicated coil, multiplanar, multi echo imaging of the left forefoot was performed without intravenous contrast. FINDINGS: Exam is mildly compromised by motion artifact. Extensive dorsal subcutaneous edema of the left foot is noted. There is marked marrow edema with diminished T1 signal within the distal phalanx of the left first toe consistent with acute osteomyelitis. There is extensive edema of the left first toe consistent with cellulitis. Note is made of a 1.9 cm fluid collection along the dorsal lateral aspect of the distal phalanx suggestive of an abscess. There is also moderate marrow edema within the proximal phalanx of the left first toe with mildly diminished T1 signal. There is no marrow edema within the left first metatarsal. No additional sites of marrow edema are present. IMPRESSION: 1. Findings consistent with acute osteomyelitis of the distal phalanx of the left first toe and the mid to distal aspect of the proximal phalanx of the left first toe. 2. Left first toe cellulitis. 1.9 cm fluid collection along the dorsal lateral aspect of the distal phalanx of the left first toe suggestive of an abscess. 3. Extensive dorsal subcutaneous trace edema of the left foot.
[2021-09-17] MEDS ORDERED: OPTIRAY 320 100ml IV ONE (11:56)
--- NOTE | 2021-09-17 12:19 | CT Scan Report ---
CT abd pelvis IV con only CLINICAL HISTORY: Splenomegaly, portal hypertension TECHNIQUE: Helical axial images of the abdomen and pelvis were obtained and displayed. Automated dose lowering techniques and/or adjustment according to patient size were utilized for this exam. This e xam was performed with intravenous contrast. COMPARISON: None available at the time of this dictation. FINDINGS: Lower chest: No acute abnormality Liver: Unremarkable. No focal lesions are seen. Gallbladder and biliary tree: No calcified gallstones. Normal caliber wall. No intra- or extrahepatic biliary ductal dilation. Pancreas: Unremarkable, no focal lesions. Spleen: The spleen measured 12 cm in craniocaudal dimension. A splenule is seen. Adrenals: Unremarkable. Kidneys and ureters: A renal cyst is seen on the right. Bladder: Limited evaluation due to underdistention. Mild diffuse wall thickening most pronounced in t he anterior aspect of the bladder may be due to underdistention. Reproductive organs: Unremarkable. Bowel: Diverticulosis is seen without evidence of diverticulitis. Lymph nodes Retroperitoneal: Subcentimeter abimbola hepatis nodes seen. Mesenteric: Unremarkable. Pelvic: Subcentimeter nodes are seen in the left greater than right external iliac chain. Peritoneum: Normal Vessels: Atherosclerotic calcifications are seen. Abdominal wall: A fat-containing umbilical hernia is seen. Bones: Degenerative changes in the visualized spine. IMPRESSION: 1. No evidence of acute abnormality. 2. Spleen is at the upper limit of normal but no leila splenomegaly is seen. 3. Mild diffuse wall thickening in the bladder, most pronounced in the anterior aspect, may be secon lukasz to underdistention. Attentional follow-up is recommended. ACT 112: Negative or not required by law. Electronically signed by: Silver Driver M.D. 09/17/2021 12:18 PM
--- NOTE | 2021-09-17 13:16 | Anesthesiology Consultation ---
Date of Service September 17 Assessment & Plan Chart Review Chart Review: Acceptable Risk for Surgery (necessary surgery), Pending: Refer to Additional Notes / Consult section (EKG is pending) and Patient NOT seen in Pre Admission Testing Consults Requested none History Surgery Operation Date: 09/18/21 08:10 Proposed Procedures p Left Great Toe Amputation - José Miguel Lizarraga MD Height/Weight Height: 6 ft Weight: 126.3 kg Allergies Allergy/AdvReac Type Severity Reaction Status Date / Time No Known Allergies Allergy Unknown Verified 09/15/21 19:53 Medications Home Medications Medication Instructions Recorded Confirmed Last Taken multivitamin 1 tab PO DAILY #0 10/18/07 09/15/21 09/15/21 acetaminophen 500 mg tablet 1,000 mg PO DAILY 09/15/21 09/15/21 09/15/21 aspirin 81 mg tablet,delayed 81 mg PO DAILY 09/15/21 09/15/21 09/15/21 release lisinopril 20 1 tab PO DAILY 09/15/21 09/15/21 09/15/21 mg-hydrochlorothiazide 25 mg tablet loratadine 10 mg tablet (Claritin) 10 mg PO DAILY 09/15/21 09/15/21 09/15/21 metformin 1,000 mg tablet 1,000 mg PO DAILY 09/15/21 09/15/21 09/15/21 omeprazole 20 mg capsule,delayed 20 mg PO DAILY 09/15/21 09/15/21 09/15/21 release Active Medications Generic Name Dose Route Start Last Admin Trade Name Roscoe PRN Reason Stop Dose Admin Daptomycin 600 mg/ Syringe 12 mls @ 6 mls/min 09/16/21 06:00 09/18/21 05:39 IV 10/28/21 05:59 6 mls/min Q24H RUSSEL Administration Protocol Cefepime HCl 2,000 mg/ Syringe 20 mls @ 5 mls/min 09/16/21 12:00 09/18/21 03:35 IV 10/28/21 03:59 5 mls/min Q8H RUSSEL Administration Protocol Insulin Aspart 0 units 09/18/21 06:00 09/18/21 05:46 Insulin Aspart 100 Units/Ml 3 Ml Pen SC 10/18/21 05:59 Not Given Q6 RUSSEL Lisinopril 20 mg 09/16/21 09:00 09/17/21 09:23 Lisinopril 20 Mg Tab PO 10/16/21 08:59 20 mg QAM RUSSEL Administration Loratadine 10 mg 09/16/21 09:00 09/17/21 09:24 Loratadine 10 Mg Tab PO 10/16/21 08:59 10 mg DAILY RUSSEL Administration Multivitamins 1 tab 09/16/21 09:00 09/17/21 09:24 Multivitamin Tab PO 10/16/21 08:59 1 tab DAILY RUSSEL Administration Pantoprazole Sodium 40 mg 09/16/21 09:00 09/17/21 09:24 Pantoprazole 40 Mg Tab PO 10/16/21 08:59 40 mg DAILY RUSSEL Administration Past Medical History Medical History (Updated 09/17/21 @ 13:16 by Paresh Strickland MD) Anemia DM2 (diabetes mellitus, type 2) Dyslipidemia GERD (gastroesophageal reflux disease) HTN (hypertension) Obesity Seasonal allergies Past Surgical History Surgical History No pertinent past surgical history Social History Smoking Status: Never smoker Do You Dip or Chew Tobacco: No Hx Alcohol Use: Yes alcohol intake frequency: 0-2 drinks per day Alcohol Intake Frequency Comment: states he hasnt drank any alcohol in about 1 week Hx Substance Use: No substance use type: does not use Physical Exam Vital Signs Last Vital Signs Temp 36.9 C 09/17/21 22:51 Pulse 80 09/17/21 22:51 Resp 16 09/17/21 22:51 BP 148/91 H 09/17/21 22:51 Pulse Ox 98 09/17/21 22:51 Testing Laboratory Results 09/17/21 06:05 PT 10.4 Seconds (9.0-12.0) 09/15/21 22:25 INR 1.0 (0.9-1.1) 09/15/21 22:25 Hemoglobin A1c 10.6 % (4.5-5.6) H 09/15/21 22:25 Urine Color Yellow 09/16/21 02:40 Urine Appearance Clear (Clear) 09/16/21 02:40 Urine pH 5.5 (4.5-7.5) 09/16/21 02:40 Ur Specific [place] 1.021 (1.000-1.030) 09/16/21 02:40 Urine Protein Negative (Negative) 09/16/21 02:40 Urine Glucose (UA) 3+ (Negative) H 09/16/21 02:40 Urine Ketones Negative (Negative) 09/16/21 02:40 Urine Nitrite Negative (Negative) 09/16/21 02:40 Ur Leukocyte Esterase Negative (Negative) 09/16/21 02:40 Blood Type O Negative 09/15/21 22:25 Antibody Screen NEGATIVE 09/15/21 22:25 09/15/21 21:01 Aerobic Blood Culture - Preliminary Blood No growth in Aerobic bottle after 48 hours. Anaerobic Blood Culture - Preliminary No growth in Anaerobic bottle after 48 hours. 09/15/21 19:59 Aerobic Blood Culture - Preliminary Blood No growth in Aerobic bottle after 48 hours. Anaerobic Blood Culture - Preliminary No growth in Anaerobic bottle after 48 hours. 09/15/21 20:41 Gram Stain - Final Toe,Left Great Deep Wound Culture - Preliminary Group B Beta Strep 09/18/21 09/17/21 05:40 21:16 POC Glucose 115 H 141 H
--- NOTE | 2021-09-17 16:42 | Hospitalist Progress Note ---
Date of Service September 17, 2021 Assessment & Plan (1) Diabetic foot infection: Plan: Left great toe diabetic foot infection/Osteomyelitis/Abscess-POA Sepsis-POA -Foot MRI:Findings consistent with acute osteomyelitis of the distal phalanx of the left first toe and the mid to distal aspect of the proximal phalanx of the left first toe. Left first toe cellulitis. 1.9 cm fluid collection along the dorsal lateral aspect of the distal phalanx of the left first toe suggestive of an abscess. Extensive dorsal subcutaneous trace edema of the left foot. -Blood cultures no growth to date Wound culture growing group B beta strep Appreciate orthopedics input Denies any pain Continue daptomycin, cefepime Appreciate orthopedics input Continue wound care Consider ID evaluation when appropriate N.p.o. after midnight for surgical procedure tomorrow Hyponatremia Likely due to HCTZ Sodium levels improved to 139 Hold HCTZ for now Monitor Hypertension Continue lisinopril Monitor DM II Poorly controlled HbA1c 10.6 Hold p.o. meds Continue insulin therapy while hospitalized Monitor BGs Alcohol use Denies any abuse Monitor for withdrawal Last drink 1 week ago as per patient Fatty liver disease Possible cirrhosis on outpatient MRI of the liver 2019 LFTs trending down Monitor CT abdomen reviewed Appreciate GI input Normocytic anemia Likely multifactorial--iron deficiency, alcohol use, H/O diverticulosis +FOBT No active bleeding Needs follow-up with GI as outpatient Monitor CBC DVT Px: SCDs Re:+FOBT, Plan for surgery Code Status Full code Admission and Anticipated Discharge Date Admission Date: September 16, 2021 Subjective Patient is seen and examined at bedside No complaints today Denies any leg pain Likely plan for surgical procedure tomorrow Denies chest pain, shortness of breath, dizziness, nausea, abdominal pain Review of Systems Review of Systems: All systems reviewed & are unremarkable except as noted in Subjective Physical Exam Physical Exam: Physical Exam: Vitals signs as noted above General Appearance:Obese, no apparent distress Head: normocephalic, Atraumatic Eyes: normal inspection, EOMI Neck: supple, Trachea midline Respiratory/Chest: Normal breath sounds, CTA Cardiovascular: S1, S2, No murmur Abdomen/GI:Soft, Non tender, Bowel sounds present Extremities/Musculoskeletal:normal inspection, left lower extremity edema, great toe wound, swelling, erythema Neurologic/Psych:AAOX3, grossly no focal neurological deficits Skin: normal color, warm Results & Data Results & Data ([facility]) Vital Signs (Past 12 Hours) Vital Signs Temp Pulse Resp BP BP Pulse Ox 09/17/21 12:30 36.6 C 76 18 152/92 H 95 09/17/21 06:41 36.8 C 67 16 123/78 98 Laboratory Results Short CBC 09/17/21 Range/Units 06:05 WBC 6.38 (4.8-10.8) K/uL Hgb 12.1 L (14.0-18.0) g/dL Hct 35.9 L (42-52) % Plt Count 361 (130-400) K/uL BMP 09/17/21 06:05 Sodium 139 Potassium 4.4 D Chloride 106 Carbon Dioxide 29 BUN 10 Creatinine 0.80 Glucose 140 H Calcium 9.0
[2021-09-18] MEDS ORDERED: D5W AND NSS 1,000 ML IV SCH
[2021-09-18] MEDS ORDERED: Nursing to Pharmacy Communication SCH ×2 (02:00→21:00)
[2021-09-18] MEDS: CEFEPIME 2,000 MG in SYRINGE 0 ML IV SCH ×3 (03:35→20:47)
[2021-09-18] MEDS: DAPTOmycin 600 MG in SYRINGE 0 ML IV SCH (05:39)
[2021-09-18] MEDS: INSULIN ASPART 100 UNITS/ML 3 ML PEN SC SCH ×4 (05:46→21:18)
[2021-09-18 07:52] LABS: Albumin Level 2.7 gm/dl (3.4-5.0); BUN Creatinine Ratio 10.8 (10-20); Calcium 9.1 mg/dl (8.5-10.1); Creatinine Clr Calc Pharmacy 125.6 ml/min; Est GFR (African American) 108.8 ml/min; Est GFR (Non-African American) 93.8 ml/min; Potassium 4.5 mmol/L (3.5-5.1)
[2021-09-18 07:55] LABS: Bilirubin Direct 0.2 mg/dl (0-0.2); Bilirubin,Total 0.6 mg/dl (0.2-1); Total Protein 8.1 gm/dl (6.4-8.2)
[2021-09-18] MEDS: LORATADINE 10 MG TAB PO SCH (08:22)
[2021-09-18] MEDS: lisinopril 20 MG TAB PO SCH (08:22)
[2021-09-18] MEDS: MULTIVITAMIN TAB PO SCH (08:22)
[2021-09-18] MEDS: PANTOprazole 40 MG TAB PO SCH (08:23)
--- NOTE | 2021-09-18 09:36 | Orthopedic Progress Note ---
Date of Service September 18, 2021 Assessment & Plan (1) Diabetic foot infection: Plan: Left great toe diabetic foot infection, osteomyelitis proximal & distal phalanx. Explained to the patient that the MRI findings for osteomyelitis of the distal and proximal phalanx left great toe. His options continue to include conservative treatment with IV antibiotics and depending on the sensitivities from his cultures possibly oral antibiotics and wound care versus surgery which would involve amputation and antibiotics. The patient would like to see how conservative measure fair over next 24 hours and obtain a second opinion from other provider in town. Continue IV antibiotics, can be weightbearing as tolerated through the heel. Continue warm soaks 3 times daily and replacement of dressings with Telfa, 4 x 4's, ABD, Pepito, and an John bandage as needed. Has been removed from add-on list, may eat from ortho standpoint. The patient understood all my instructions and explanation; all their questions were satisfactorily addressed. Continue care per primary service. We will continue to follow while in the hospital. Admission and Anticipated Discharge Date Admission Date: September 16, 2021 Subjective Feeling well. Not ready for surgery today. Wants to talk it over with his and [id number] as they want a second opinion. Physical Exam Musculoskeletal: Extremities: + joint enlargement (Left great toe, IP joint), + lower leg abnormality (Left great toe: Swelling, erythema, open wound over the medial dorsal IP jt) and + foot abnormality (Swelling & erythema. Continued draining wound dorsal medial) Skin: Skin about the great toe is thin, dry, from the underlying soft tissue. Results & Data ([facility]) Vital Signs (Past 12 Hours) Vital Signs Temp Pulse Resp BP Pulse Ox 09/18/21 07:54 36.9 C 70 16 141/90 H 97 09/17/21 22:51 36.9 C 80 16 148/91 H 98 Laboratory Results 09/18/21 09/18/21 09/17/21 Range/Units 06:37 05:40 21:16 Sodium 137 (136-145) mmol/L Potassium 4.5 (3.5-5.1) mmol/L Chloride 106 (98-107) mmol/L Carbon Dioxide 28 (21-32) mmol/L Anion Gap 3.0 (3-11) BUN 9 (7-18) mg/dl Creatinine 0.84 (0.6-1.4) mg/dl Est Cr Clr Drug Dosing 125.6 ml/min Est GFR ( Amer) 108.8 ml/min Est GFR (Non-Af Amer) 93.8 ml/min BUN/Creatinine Ratio 10.8 (10-20) Glucose 125 H (70-99) mg/dl POC Glucose 115 H 141 H (70-99) mg/dl Calcium 9.1 (8.5-10.1) mg/dl Total Bilirubin 0.6 (0.2-1) mg/dl Direct Bilirubin 0.2 (0-0.2) mg/dl AST 221 H (15-37) U/L ALT 175 H (12-78) U/L Alkaline Phosphatase 85 (45-117) U/L Total Protein 8.1 (6.4-8.2) gm/dl Albumin 2.7 L (3.4-5.0) gm/dl 09/17/21 09/17/21 Range/Units 17:09 11:48 Sodium (136-145) mmol/L Potassium (3.5-5.1) mmol/L Chloride (98-107) mmol/L Carbon Dioxide (21-32) mmol/L Anion Gap (3-11) BUN (7-18) mg/dl Creatinine (0.6-1.4) mg/dl Est Cr Clr Drug Dosing ml/min Est GFR ( Amer) ml/min Est GFR (Non-Af Amer) ml/min BUN/Creatinine Ratio (10-20) Glucose (70-99) mg/dl POC Glucose 111 H 196 H (70-99) mg/dl Calcium (8.5-10.1) mg/dl Total Bilirubin (0.2-1) mg/dl Direct Bilirubin (0-0.2) mg/dl AST (15-37) U/L ALT (12-78) U/L Alkaline Phosphatase (45-117) U/L Total Protein (6.4-8.2) gm/dl Albumin (3.4-5.0) gm/dl Microbiology 09/15/21 21:01 Aerobic Blood Culture - Preliminary Blood No growth in Aerobic bottle after 48 hours. Anaerobic Blood Culture - Preliminary No growth in Anaerobic bottle after 48 hours. 09/15/21 19:59 Aerobic Blood Culture - Preliminary Blood No growth in Aerobic bottle after 48 hours. Anaerobic Blood Culture - Preliminary No growth in Anaerobic bottle after 48 hours. 09/15/21 20:41 Gram Stain - Final Toe,Left Great Deep Wound Culture - Preliminary Group B Beta Strep Diagnostic Findings MR foot LT w/o con CLINICAL HISTORY: Left great toe infection. Evaluate for osteomyelitis. COMPARISON STUDY: Left foot radiographs September 15, 2021. TECHNIQUE: Utilizing a 1.5 Kerry magnet and dedicated coil, multiplanar, multi echo imaging of the left forefoot was performed without intravenous contrast. FINDINGS: Exam is mildly compromised by motion artifact. Extensive dorsal subcutaneous edema of the left foot is noted. There is marked marrow edema with diminished T1 signal within the distal phalanx of the left first toe consistent with acute osteomyelitis. There is extensive edema of the left first toe consistent with cellulitis. Note is made of a 1.9 cm fluid collection along the dorsal lateral aspect of the distal phalanx suggestive of an abscess. There is also moderate marrow edema within the proximal phalanx of the left first toe with mildly diminished T1 signal. There is no marrow edema within the left first metatarsal. No additional sites of marrow edema are present. IMPRESSION: 1. Findings consistent with acute osteomyelitis of the distal phalanx of the left first toe and the mid to distal aspect of the proximal phalanx of the left first toe. 2. Left first toe cellulitis. 1.9 cm fluid collection along the dorsal lateral aspect of the distal phalanx of the left first toe suggestive of an abscess. 3. Extensive dorsal subcutaneous trace edema of the left foot.
--- NOTE | 2021-09-18 13:03 | Orthopedic Consultation ---
Date of Consultation September 18, 2021 Assessment & Plan (1) Osteomyelitis of great toe of left foot: 61-year-old diabetic with hemoglobin A1c of 10.6 with osteomyelitis of the distal and distal to mid proximal phalanx. Patient currently being treated with IV antibiotics and daily soaks 3 times daily with possible plans for amputation. X-rays and MRI reviewed by myself. I will discuss the case with Dr. Vásquez later this afternoon. Discussed with the patient that conservative treatment with longer-term IV antibiotics and wound care may only prolong an amputation. We discussed that if amputation was considered, it would likely be the distal phalanx and a portion of the proximal phalanx but discussed that this would be entirely up to Dr. Vásquez. Patient understands current types of treatment that have been offered. Will await Dr. Vásquez's input. History of Present Illness Reason for Consultation: Left great toe infection; distal phalanx osteomyelitis Attending Physician: Mauricio Todd MD History of Present Illness Patient is a 61-year-old white male with past medical history of hypertension, hyperlipidemia, DM2 on oral medications, fatty liver disease, daily alcohol intake, history sigmoid diverticulosis, past tobacco abuse. Patient states that approximately 3 to 4 weeks ago he began noticing a small ulceration on the tip of his toe. He states that he had had this once before and was treated with antibiotic ointment. Patient states that he began treating this ulceration in the same fashion. It started to get better initially however then it began to worsen. [facility]. At that time he was put on doxycycline which helped take care of the infection somewhat. Within the last week though he began noticing increased swelling of the toe with redness and a small blister started on the top of his toe. This continued to worsen and the skin over the blister loosened and came off. He continue to treat it as he was however he began noticing increased swelling of the foot that was going up to the ankle. He sought treatment at the emergency room here at [facility]. At that time x-rays were taken of the left foot and it was noted that there was bony destruction of the distal phalanx of the left great toe. Patient was noted to have an ulceration over the dorsum of the great toe and a healing ulcer at the distal tip of the great toe. He was then admitted by the hospitalist service for treatment of his cellulitis and ulcerations with IV antibiotics. Dr. Lizarraga was consulted and saw the patient for orthopedic consult. Patient was continued on IV antibiotics as well as 3 times daily soaks of the left great toe. MRI was ordered and found osteomyelitis in the distal and proximal phalanxes of the left great toe. The patient was offered conservative Rx or amputation of the infected portions of the left great toe. The patient was concerned about having an amputation and discussed it with his family. They are requesting a second opinion. Allergies Allergy/AdvReac Type Severity Reaction Status Date / Time No Known Allergies Allergy Unknown Verified 09/15/21 19:53 Home Medications Medication Instructions Recorded Confirmed Type multivitamin 1 tab PO DAILY #0 10/18/07 09/15/21 History acetaminophen 500 mg tablet 1,000 mg PO DAILY 09/15/21 09/15/21 History aspirin 81 mg tablet,delayed 81 mg PO DAILY 09/15/21 09/15/21 History release lisinopril 20 1 tab PO DAILY 09/15/21 09/15/21 History mg-hydrochlorothiazide 25 mg tablet loratadine 10 mg tablet (Claritin) 10 mg PO DAILY 09/15/21 09/15/21 History metformin 1,000 mg tablet 1,000 mg PO DAILY 09/15/21 09/15/21 History omeprazole 20 mg capsule,delayed 20 mg PO DAILY 09/15/21 09/15/21 History release Patient History Medical History Anemia DM2 (diabetes mellitus, type 2) Dyslipidemia GERD (gastroesophageal reflux disease) HTN (hypertension) Obesity Seasonal allergies Surgical History No pertinent past surgical history Social History Smoking Status: Never smoker Do You Dip or Chew Tobacco: No; Hx Alcohol Use: Yes Hx Substance Use: No Preferred Language: [place] Helen[place] Communication Ability: Effective Branch Director Required: No Beliefs That Will Affect Care: None Current Living Situation: Spouse Other Information That Helps Us Care for You: No Feels Safe at Home: Yes Safety Concerns: Feels Safe At This Time Assistive Devices: Glasses Physical Exam Physical Exam: On examination, the patient is sitting up in bed awake and alert. No complaints this morning. Pain controlled. No acute distress. Pleasant cooperative. Alert and oriented x3. Patient has an John wrap with dressing underneath over the left foot. This is removed revealing a enlarged left great toe with noted skin drying over a good portion of it. There is a small healing ulceration at the very tip of the toe with a blackened center with no drainage or erythema. He has a larger ulceration that is approximately a centimeter in width with a james to yellow center with erythema on the outer margins. There is some skin loss noted just proximal to this on the lateral aspect that is erythematous as well. Scant serous drainage is noted. Palpation of the great toe reveals a soft exterior over the dorsum that feels like there is fluid collection just underneath. I cannot express this from the dorsal ulceration. The dorsal ulceration is over the IP joint. No overt erythema of the dorsum of the foot or the ankle. His swelling has decreased as per patient since has been on IV antibiotics. The cellulitis that he initially had is obviously been resolving well with IV antibiotics but he is left with this ulceration at the DIP joint with moderate erythema surrounding it. Results & Data ([facility]) Vital Signs (Past 12 Hours) Vital Signs Temp Pulse Resp BP Pulse Ox 09/18/21 11:36 36.6 C 84 16 154/88 H 97 09/18/21 07:54 36.9 C 70 16 141/90 H 97 Diagnostic Findings Patient: ISAURO NEVAREZ DAdmit Date: 09/16/21#: [id number]: [facility] ID:[id number]: Date: 1960[facility] Zip: [place], [place] [address]Psr: 61Location: 2NSex: MRoom/Bed: A884-2Xwd Phy: Brian Villegas MDDiagnosis: HYPONATREMIA, SEPSISPri Phy: PCP,NOService Date: 09/16/21Fam Phy:Interpreting Phy: Antonio Fleming MDAdmit Phy: Randy Stevenson MD Ordering Phy: José Miguel Lizarraga MD cc: ~ MR foot LT w/o con CLINICAL HISTORY: Left great toe infection. Evaluate for osteomyelitis. COMPARISON STUDY: Left foot radiographs September 15, 2021. TECHNIQUE: Utilizing a 1.5 Kerry magnet and dedicated coil, multiplanar, multi echo imaging of the left forefoot was performed without intravenous contrast. FINDINGS: Exam is mildly compromised by motion artifact. Extensive dorsal subcutaneous edema of the left foot is noted. There is marked marrow edema with diminished T1 signal within the distal phalanx of the left first toe consistent with acute osteomyelitis. There is extensive edema of the left first toe consistent with cellulitis. Note is made of a 1.9 cm fluid collection along the dorsal lateral aspect of the distal phalanx suggestive of an abscess. There is also moderate marrow edema within the proximal phalanx of the left first toe with mildly diminished T1 signal. There is no marrow edema within the left first metatarsal. No additional sites of marrow edema are present. IMPRESSION: 1. Findings consistent with acute osteomyelitis of the distal phalanx of the left first toe and the mid to distal aspect of the proximal phalanx of the left first toe. 2. Left first toe cellulitis. 1.9 cm fluid collection along the dorsal lateral aspect of the distal phalanx of the left first toe suggestive of an abscess. 3. Extensive dorsal subcutaneous trace edema of the left foot. ACT 112: Negative or not required by law. XR foot LT min 3V routine CLINICAL HISTORY: erythema/swelling L foot particularly in the great toe TECHNIQUE: 3 views of the right foot were obtained. Comparison: None available at the time of this dictation. FINDINGS: There is focal osteopenia at the tuft of the first digit distal phalanx. The alignment is anatomic. The joint spaces are well preserved. Soft tissue swelling is seen throughout the foot, most prominently at the great toe. IMPRESSION: Focal osteopenia at the distal tuft of the first digit distal phalanx, concerning for osteomyelitis with overlying cellulitis.
--- NOTE | 2021-09-18 17:19 | Hospitalist Progress Note ---
Date of Service September 18, 2021 Assessment & Plan (1) Diabetic foot infection: Plan: Left great toe diabetic foot infection/Osteomyelitis/Abscess-POA Sepsis-POA Foot MRI:Findings consistent with acute osteomyelitis of the distal phalanx of the left first toe and the mid to distal aspect of the proximal phalanx of the left first toe. Left first toe cellulitis. 1.9 cm fluid collection along the dorsal lateral aspect of the distal phalanx of the left first toe suggestive of an abscess. Extensive dorsal subcutaneous trace edema of the left foot. Blood cultures no growth to date Wound culture growing group B beta strep Appreciate orthopedics input and recommendation Denies any pain Continue daptomycin, cefepime Consider ID evaluation when appropriate Hyponatremia Likely due to HCTZ Sodium levels improved to 139 Hold HCTZ for now Monitor Hypertension Continue lisinopril Monitor DM II Poorly controlled HbA1c 10.6 Hold p.o. meds Continue insulin therapy while hospitalized Monitor BGs Alcohol use Denies any abuse Monitor for withdrawal Last drink 1 week ago as per patient Fatty liver disease Possible cirrhosis on outpatient MRI of the liver [address] down Monitor CT abdomen reviewed Appreciate GI input Normocytic anemia Likely multifactorial--iron deficiency, alcohol use, H/O diverticulosis +FOBT No active bleeding Needs follow-up with GI as outpatient Monitor CBC DVT Px: SCDs Re:+FOBT, Plan for surgery Code Status Full code Admission and Anticipated Discharge Date Admission Date: September 16, 2021 Subjective 09/18/2021 Patient was seen and examined in medical floor He has had second opinion for his left great toe surgery Denies any symptoms Review of Systems Review of Systems: All systems reviewed and are unremarkable except as noted below Physical Exam Physical Exam: Lying in bed comfortably Constitutional: well developed, well nourished and + obese; not ill appearing Eyes: PERRL, conjunctivae normal, anicteric sclerae ENMT: external ear and nose normal, oropharynx normal Neck: trachea midline, no thyromegaly Respiratory: no respiratory distress Auscultation: lungs clear to auscultation bilaterally Cardiovascular: Rate/Rhythm: regular rate and regular rhythm; not tachycardic Heart Sounds: normal S1 and normal S2; no murmur Extremities: + edema (Trace edema bilaterally) Gastrointestinal (Abdomen): Inspection/Auscultation: normal bowel sounds; abdomen not distended Percussion/Palpation: abdomen soft; abdomen nontender Musculoskeletal: Left foot is bandaged Neurologic: Alert, awake and oriented x3 Results & Data Results & Data ([facility]) Vital Signs (Past 12 Hours) Vital Signs Temp Pulse Resp BP Pulse Ox 09/18/21 15:06 36.7 C 72 16 137/82 97 09/18/21 11:36 36.6 C 84 16 154/88 H 97 09/18/21 07:54 36.9 C 70 16 141/[address] [facility] 09/18/21 06:37 Sodium 137 Potassium 4.5 Chloride 106 Carbon Dioxide 28 BUN 9 Creatinine 0.84 Glucose 125 H Calcium 9.1 Liver Function 09/18/21 Range/Units 06:37 Total Bilirubin 0.6 (0.2-1) mg/dl Direct Bilirubin 0.2 (0-0.2) mg/dl AST 221 H (15-37) U/L ALT 175 H (12-78) U/L Alkaline Phosphatase 85 (45-117) U/L Albumin 2.7 L (3.4-5.0) gm/dl Medications Administered Current Inpatient Medications Acetaminophen (Acetaminophen 325 Mg Tab) 325 mg PO Q6H PRN PRN Reason: Mild Pain Stop: 10/16/21 03:21 Dextrose (Dextrose 50% 50 Ml Syringe) 25 - 50 ml IV UD PRN; Protocol PRN Reason: Hypoglycemia Protocol Stop: 10/16/21 02:45 Glucagon (Glucagon For Inj 1 Mg Vial) 1 mg SQ UD PRN; Protocol PRN Reason: Hypoglycemia Protocol Stop: 10/16/21 02:45 Glucose (Glucose 10 Tabs/Tube) 4 - 8 tabs PO UD PRN; Protocol PRN Reason: Hypoglycemia Protocol Stop: 10/16/21 02:45 Glucose (Glucose 40% Gel 15 Gm Tube) 15 - 30 gm PO UD PRN; Protocol PRN Reason: Hypoglycemia Protocol Stop: 10/16/21 02:45 Lorazepam (Ativan) 0.5 mg in 1 mls @ 1 mls/min IV Q4H PRN PRN Reason: Anxiety/Agitation Stop: 10/16/21 02:45 Promethazine HCl 12.5 mg/ (Sodium Chloride) 50.5 mls @ 202 mls/hr IV Q6H PRN PRN Reason: Nausea And Vomiting Stop: 10/16/21 02:45 Daptomycin 600 mg/ Syringe 12 mls @ 6 mls/min IV Q24H [facility]; Protocol Stop: 10/28/21 05:59 Last Admin: 09/18/21 05:39 Dose: 6 mls/min Documented by: Cefepime HCl 2,000 mg/ Syringe 20 mls @ 5 mls/min IV Q8H [facility]; Protocol Stop: 10/28/21 03:59 Last Admin: 09/18/21 12:45 Dose: 5 mls/min Documented by: Insulin Aspart (Insulin Aspart 100 Units/Ml 3 Ml Pen) 0 units SC Q6 [facility] Stop: 10/18/21 05:59 Last Admin: 09/18/21 12:46 Dose: 5 units Documented by: Insulin Glargine (Insulin Glargine Solostar 100 Units/Ml 3 Ml Pen) 20 units SC HS [facility] Stop: 10/18/21 20:59 Lisinopril (Lisinopril 20 Mg Tab) 20 mg PO QAM [facility] Stop: 10/16/21 08:59 Last Admin: 09/18/21 08:22 Dose: 20 mg Documented by: Loratadine (Loratadine 10 Mg Tab) 10 mg PO DAILY [facility] Stop: 10/16/21 08:59 Last Admin: 09/18/21 08:22 Dose: 10 mg Documented by: Miscellaneous (Carbohydrates For Hypoglycemia ) 15 - 30 gm PO UD PRN PRN Reason: Hypoglycemia Protocol Stop: 10/16/21 02:45 Miscellaneous Information (Cefepime Consult Active) 1 ea N/A UD PRN PRN Reason: Consult Stop: 10/16/21 03:36 Miscellaneous Information (Daptomycin Consult Active) 1 ea N/A UD PRN PRN Reason: Consult Stop: 10/16/21 03:37 Morphine Sulfate (Morphine Sulfate 4 Mg/Ml 1 Ml Carp\Vial) 4 mg IV Q4H PRN PRN Reason: Pain Stop: 09/30/21 02:45 Multivitamins (Multivitamin Tab) 1 tab PO DAILY [facility] Stop: 10/16/21 08:59 Last Admin: 09/18/21 08:22 Dose: 1 tab Documented by: Oxycodone HCl (Oxycodone Hcl Ir 5 Mg Tab (Immediate Release)) 5 mg PO Q4H PRN PRN Reason: Pain Stop: 09/30/21 02:45 Pantoprazole Sodium (Pantoprazole 40 Mg Tab) 40 mg PO DAILY [facility] Stop: 10/16/21 08:59 Last Admin: 09/18/21 08:23 Dose: 40 mg Documented by:
[2021-09-18] MEDS: INSULIN GLARGINE SOLOSTAR 100 UNITS/ML 3 ML PEN SC SCH (21:19)
[2021-09-19] MEDS: CEFEPIME 2,000 MG in SYRINGE 0 ML IV SCH ×3 (03:33→20:55)
--- NOTE | 2021-09-19 05:06 | Electrocardiogram Report ---
Test Reason : Blood Pressure : / mmHG Vent. Rate : 070 BPM Atrial Rate : 070 BPM P-R Int : 166 ms QRS Dur : 142 ms QT Int : 430 ms P-R-T Axes : 045 058 044 degrees QTc Int : 464 ms Normal sinus rhythm Right bundle branch block Abnormal ECG When compared with ECG of 19-OCT-2007 08:17, Right bundle branch block is now Present Confirmed by Lonnie Stanford ([id number]) on 09/19/2021 5:06:06 AM Referred By: REFERRED SELF Confirmed By:Lonnie Stanford
[2021-09-19] MEDS: DAPTOmycin 600 MG in SYRINGE 0 ML IV SCH (06:11)
[2021-09-19 07:36] LABS: Basophils # (auto) 0.05 K/uL (0-0.2); Basophils % (auto) 0.8 %; Eosinophils # (auto) 0.17 K/uL (0-0.5); Eosinophils % (auto) 2.8 %; Hematocrit (blood only) 37.3 % (42-52); Hemoglobin 12.5 g/dL (14.0-18.0); Immature Granulocytes # (auto) 0.02 K/uL (0.00-0.02); Immature Granulocytes % (auto) 0.3 %; Lymphocytes # (auto) 1.89 K/uL (1.2-3.4); Lymphocytes % (auto) 30.9 %; Mean Corpuscular Hemoglobin 33.2 pg (25-34); Mean Corpuscular Hgb Conc 33.5 g/dL (32-36); Mean Corpuscular Volume 99.2 fL (80-100); Mean Platelet Volume 9.7 fL (7.4-10.4); Monocytes # (auto) 0.55 K/uL (0.11-0.59); Neutrophils # (auto) 3.44 K/uL (1.4-6.5); Neutrophils % (auto) 56.2 %; Platelet Count 394 K/uL (130-400); RDW Coefficient of Variation 12.1 % (11.5-14.5); RDW Standard Deviation 43.7 fL (36.4-46.3); Red Blood Count 3.76 M/uL (4.7-6.1); White Blood Count 6.12 K/uL (4.8-10.8)
[2021-09-19 08:09] LABS: BUN Creatinine Ratio 12.8 (10-20); Calcium 9.8 mg/dl (8.5-10.1); Creatinine Clr Calc Pharmacy 127.1 ml/min; Est GFR (African American) 109.3 ml/min; Est GFR (Non-African American) 94.3 ml/min; Potassium 4.8 mmol/L (3.5-5.1)
[2021-09-19] MEDS: LORATADINE 10 MG TAB PO SCH (10:02)
[2021-09-19] MEDS: MULTIVITAMIN TAB PO SCH (10:03)
[2021-09-19] MEDS: lisinopril 20 MG TAB PO SCH (10:03)
[2021-09-19] MEDS: INSULIN ASPART 100 UNITS/ML 3 ML PEN SC SCH ×4 (10:03→21:18)
[2021-09-19] MEDS: PANTOprazole 40 MG TAB PO SCH (10:03)
--- NOTE | 2021-09-19 16:01 | Anesthesiology Consultation ---
Date of Service September 19, 2021 Assessment & Plan (1) Encounter for pre-operative examination: Chart Review Chart Review: manager entry initiated History Surgery Operation Date: 09/18/21 08:10 Proposed Procedures p Left Great Toe Amputation - José Miguel Lizarraga MD Operation Date: 09/20/21 07:00 Proposed Procedures p Left Great Toe Amputation - Uvaldo Vásquez DO Height/Weight Height: 6 ft Weight: 127.1 kg Allergies Allergy/AdvReac Type Severity Reaction Status Date / Time No Known Allergies Allergy Unknown Verified 09/15/21 19:53 Medications Home Medications Medication Instructions Recorded Confirmed Last Taken multivitamin 1 tab PO DAILY #0 10/18/07 09/15/21 09/15/21 acetaminophen 500 mg tablet 1,000 mg PO DAILY 09/15/21 09/15/21 09/15/21 aspirin 81 mg tablet,delayed 81 mg PO DAILY 09/15/21 09/15/21 09/15/21 release lisinopril 20 1 tab PO DAILY 09/15/21 09/15/21 09/15/21 mg-hydrochlorothiazide 25 mg tablet loratadine 10 mg tablet (Claritin) 10 mg PO DAILY 09/15/21 09/15/21 09/15/21 metformin 1,000 mg tablet 1,000 mg PO DAILY 09/15/21 09/15/21 09/15/21 omeprazole 20 mg capsule,delayed 20 mg PO DAILY 09/15/21 09/15/21 09/15/21 release Active Medications Generic Name Dose Route Start Last Admin Trade Name Freq PRN Reason Stop Dose Admin Daptomycin 600 mg/ Syringe 12 mls @ 6 mls/min 09/16/21 06:00 09/19/21 06:11 IV 10/28/21 05:59 6 mls/min Q24H [facility] Administration Protocol Cefepime HCl 2,000 mg/ Syringe 20 mls @ 5 mls/min 09/16/21 12:00 09/19/21 13:21 IV 10/28/21 03:59 5 mls/min Q8H [facility] Administration Protocol Insulin Aspart 0 units 09/18/21 21:15 09/19/21 13:21 Insulin Aspart 100 Units/Ml 3 Ml Pen SC 10/18/21 05:59 3 units ACHS [facility] Administration Insulin Glargine 20 units 09/18/21 21:00 09/18/21 21:19 Insulin Glargine Solostar 100 Units/Ml 3 Ml Pen SC 10/18/21 20:59 20 units HS [facility] Administration Lisinopril 20 mg 09/16/21 09:00 09/19/21 10:03 Lisinopril 20 Mg Tab PO 10/16/21 08:59 20 mg QAM [facility] Administration Loratadine 10 mg 09/16/21 09:00 09/19/21 10:02 Loratadine 10 Mg Tab PO 10/16/21 08:59 10 mg DAILY [facility] Administration Multivitamins 1 tab 09/16/21 09:00 09/19/21 10:03 Multivitamin Tab PO 10/16/21 08:59 1 tab DAILY [facility] Administration Pantoprazole Sodium 40 mg 09/16/21 09:00 09/19/21 10:03 Pantoprazole 40 Mg Tab PO 10/16/21 08:59 40 mg DAILY [facility] Administration NPO Date Last Intake of Fluids: 09/17/21 Time Last Intake of Fluids: 23:59 Date Last Intake of Solids: 09/17/21 Time Last Intake of Solids: 23:59 Past Medical History Medical History Anemia DM2 (diabetes mellitus, type 2) Dyslipidemia GERD (gastroesophageal reflux disease) HTN (hypertension) Obesity Seasonal allergies Past Surgical History Surgical History No pertinent past surgical history Social History Smoking Status: Never smoker Do You Dip or Chew Tobacco: No Hx Alcohol Use: Yes alcohol intake frequency: 0-2 drinks per day Alcohol Intake Frequency Comment: states he hasnt drank any alcohol in about 1 week Hx Substance Use: No substance use type: does not use Physical Exam Vital Signs Last Vital Signs Temp 98.1 F 09/19/21 15:16 Pulse 75 09/19/21 15:16 Resp 18 09/19/21 15:16 BP 133/81 09/19/21 15:16 Pulse Ox 95 09/19/21 15:16 Testing Laboratory Results 09/19/21 06:41 09/19/21 06:41 PT 10.4 Seconds (9.0-12.0) 09/15/21 22:25 INR 1.0 (0.9-1.1) 09/15/21 22:25 Hemoglobin A1c 10.6 % (4.5-5.6) H 09/15/21 22:25 Urine Color Yellow 09/16/21 02:40 Urine Appearance Clear (Clear) 09/16/21 02:40 Urine pH 5.5 (4.5-7.5) 09/16/21 02:40 Ur Specific [place] 1.021 (1.000-1.030) 09/16/21 02:40 Urine Protein Negative (Negative) 09/16/21 02:40 Urine Glucose (UA) 3+ (Negative) H 09/16/21 02:40 Urine Ketones Negative (Negative) 09/16/21 02:40 Urine Nitrite Negative (Negative) 09/16/21 02:40 Ur Leukocyte Esterase Negative (Negative) 09/16/21 02:40 Blood Type O Negative 09/15/21 22:25 Antibody Screen NEGATIVE 09/15/21 22:25 09/15/21 20:41 Gram Stain - Final Toe,Left Great Deep Wound Culture - Final Group B Beta Strep 09/15/21 21:01 Aerobic Blood Culture - Preliminary Blood No growth in Aerobic bottle after 48 hours. Anaerobic Blood Culture - Preliminary No growth in Anaerobic bottle after 48 hours. 09/15/21 19:59 Aerobic Blood Culture - Preliminary Blood No growth in Aerobic bottle after 48 hours. Anaerobic Blood Culture - Preliminary No growth in Anaerobic bottle after 48 hours. 09/19/21 09/19/21 12:21 08:02 POC Glucose 163 H 134 H Laboratory Tests 09/15/21 19:59 SARS-CoV-2 (PCR) NEGATIVE Electrocardiogram Date: 09/18/21 Normal sinus rhythm, rate 70 bpm Right bundle branch block Abnormal ECG When compared with ECG of 19-OCT-2007 08:17, Right bundle branch block is now Present Confirmed by Lonnie Stanford ([id number]) on 09/19/2021 5:06:06 AM Chest X-Ray Date: 09/15/21 Findings: + NAD
--- NOTE | 2021-09-19 18:29 | Hospitalist Progress Note ---
Date of Service September 19, 2021 Assessment & Plan (1) Diabetic foot infection: Plan: Left great toe diabetic foot infection/Osteomyelitis/Abscess-POA Sepsis-POA Foot MRI:Findings consistent with acute osteomyelitis of the distal phalanx of the left first toe and the mid to distal aspect of the proximal phalanx of the left first toe. Left first toe cellulitis. 1.9 cm fluid collection along the dorsal lateral aspect of the distal phalanx of the left first toe suggestive of an abscess. Extensive dorsal subcutaneous trace edema of the left foot. Blood cultures no growth to date Wound culture growing group B beta strep Appreciate orthopedics input and recommendation Denies any pain Continue daptomycin, cefepime Consider ID evaluation when appropriate Plan for left big toe amputation tomorrow Hyponatremia Likely due to HCTZ Sodium levels improved to 139 Hold HCTZ for now Monitor Hypertension Continue lisinopril Monitor -controlled DM II Poorly controlled HbA1c 10.6 Hold p.o. meds Continue insulin therapy while hospitalized Monitor BGs Alcohol use Denies any abuse Monitor for withdrawal Last drink 1 week ago as per patient Fatty liver disease Possible cirrhosis on outpatient MRI of the liver [address] down Monitor CT abdomen reviewed Appreciate GI input Normocytic anemia Likely multifactorial--iron deficiency, alcohol use, H/O diverticulosis +FOBT No active bleeding Needs follow-up with GI as outpatient Monitor CBC DVT Px: SCDs Re:+FOBT, Plan for surgery Code Status Full code Admission and Anticipated Discharge Date Admission Date: September 16, 2021 Subjective 09/18/2021 Patient was seen and examined in medical floor He has had second opinion for his left great toe surgery Denies any symptoms September 19, 2021 The patient was seen and examined in medical floor He will have her left big toe amputation tomorrow Denies any symptoms Review of Systems Review of Systems: All systems reviewed and are unremarkable except as noted below Physical Exam Physical Exam: Lying in bed comfortably Constitutional: well developed, well nourished and + obese; not ill appearing Eyes: PERRL, conjunctivae normal, anicteric sclerae ENMT: external ear and nose normal, oropharynx normal Neck: trachea midline, no thyromegaly Respiratory: no respiratory distress Auscultation: lungs clear to auscul tation bilaterally Cardiovascular: Rate/Rhythm: regular rate and regular rhythm; not tachycardic Heart Sounds: normal S1 and normal S2; no murmur Extremities: + edema (Trace edema bilaterally) Gastrointestinal (Abdomen): Inspection/Auscultation: normal bowel sounds; abdomen not distended Percussion/Palpation: abdomen soft; abdomen nontender Results & Data Results & Data ([facility]) Vital Signs (Past 12 Hours) Vital Signs Temp Pulse Resp BP Pulse Ox 09/19/21 15:16 36.7 C 75 18 133/81 95 09/19/21 07:28 36.7 C 58 L 18 167/97 H 98 Laboratory Results Short CBC 09/19/21 Range/Units 06:41 WBC 6.12 (4.8-10.8) K/uL Hgb 12.5 L (14.0-18.0) g/dL Hct 37.3 L (42-52) % Plt Count 394 (130-400) K/uL BMP 09/19/21 06:41 Sodium 138 Potassium 4.8 Chloride 106 Carbon Dioxide 29 BUN 11 Creatinine 0.83 Glucose 124 H Calcium 9.8 Medications Administered Current Inpatient Medications Acetaminophen (Acetaminophen 325 Mg Tab) 325 mg PO Q6H PRN PRN Reason: Mild Pain Stop: 10/16/21 03:21 Dextrose (Dextrose 50% 50 Ml Syringe) 25 - 50 ml IV UD PRN; Protocol PRN Reason: Hypoglycemia Protocol Stop: 10/16/21 02:45 Glucagon (Glucagon For Inj 1 Mg Vial) 1 mg SQ UD PRN; Protocol PRN Reason: Hypoglycemia Protocol Stop: 10/16/21 02:45 Glucose (Glucose 10 Tabs/Tube) 4 - 8 tabs PO UD PRN; Protocol PRN Reason: Hypoglycemia Protocol Stop: 10/16/21 02:45 Glucose (Glucose 40% Gel 15 Gm Tube) 15 - 30 gm PO UD PRN; Protocol PRN Reason: Hypoglycemia Protocol Stop: 10/16/21 02:45 Lorazepam (Ativan) 0.5 mg in 1 mls @ 1 mls/min IV Q4H PRN PRN Reason: Anxiety/Agitation Stop: 10/16/21 02:45 Promethazine HCl 12.5 mg/ (Sodium Chloride) 50.5 mls @ 202 mls/hr IV Q6H PRN PRN Reason: Nausea And Vomiting Stop: 10/16/21 02:45 Daptomycin 600 mg/ Syringe 12 mls @ 6 mls/min IV Q24H [facility]; Protocol Stop: 10/28/21 05:59 Last Admin: 09/19/21 06:11 Dose: 6 mls/min Documented by: Cefepime HCl 2,000 mg/ Syringe 20 mls @ 5 mls/min IV Q8H [facility]; Protocol Stop: 10/28/21 03:59 Last Admin: 09/19/21 13:21 Dose: 5 mls/min Documented by: Insulin Aspart (Insulin Aspart 100 Units/Ml 3 Ml Pen) 0 units SC ACHS [facility] Stop: 10/18/21 05:59 Last Admin: 09/19/21 18:12 Dose: 4 units Documented by: Insulin Glargine (Insulin Glargine Solostar 100 Units/Ml 3 Ml Pen) 20 units SC HS [facility] Stop: 10/18/21 20:59 Last Admin: 09/18/21 21:19 Dose: 20 units Documented by: Lisinopril (Lisinopril 20 Mg Tab) 20 mg PO QAM [facility] Stop: 10/16/21 08:59 Last Admin: 09/19/21 10:03 Dose: 20 mg Documented by: Loratadine (Loratadine 10 Mg Tab) 10 mg PO DAILY [facility] Stop: 10/16/21 08:59 Last Admin: 09/19/21 10:02 Dose: 10 mg Documented by: Miscellaneous (Carbohydrates For Hypoglycemia ) 15 - 30 gm PO UD PRN PRN Reason: Hypoglycemia Protocol Stop: 10/16/21 02:45 Miscellaneous Information (Cefepime Consult Active) 1 ea N/A UD PRN PRN Reason: Consult Stop: 10/16/21 03:36 Miscellaneous Information (Daptomycin Consult Active) 1 ea N/A UD PRN PRN Reason: Consult Stop: 10/16/21 03:37 Morphine Sulfate (Morphine Sulfate 4 Mg/Ml 1 Ml Carp\Vial) 4 mg IV Q4H PRN PRN Reason: Pain Stop: 09/30/21 02:45 Multivitamins (Multivitamin Tab) 1 tab PO DAILY [facility] Stop: 10/16/21 08:59 Last Admin: 09/19/21 10:03 Dose: 1 tab Documented by: Oxycodone HCl (Oxycodone Hcl Ir 5 Mg Tab (Immediate Release)) 5 mg PO Q4H PRN PRN Reason: Pain Stop: 09/30/21 02:45 Pantoprazole Sodium (Pantoprazole 40 Mg Tab) 40 mg PO DAILY [facility] Stop: 10/16/21 08:59 Last Admin: 09/19/21 10:03 Dose: 40 mg Documented by:
[2021-09-19] MEDS: INSULIN GLARGINE SOLOSTAR 100 UNITS/ML 3 ML PEN SC SCH (21:17)
[2021-09-20] MEDS ORDERED: Nursing to Pharmacy Communication SCH ×2 (01:30→19:15)
[2021-09-20] MEDS: CEFEPIME 2,000 MG in SYRINGE 0 ML IV SCH ×2 (04:44→12:23)
[2021-09-20] MEDS: INSULIN ASPART 100 UNITS/ML 3 ML PEN SC SCH ×4 (05:49→20:58)
[2021-09-20] MEDS: DAPTOmycin 600 MG in SYRINGE 0 ML IV SCH (05:50)
[2021-09-20] MEDS: MULTIVITAMIN TAB PO SCH (09:00)
[2021-09-20] MEDS: LORATADINE 10 MG TAB PO SCH (09:00)
[2021-09-20] MEDS: lisinopril 20 MG TAB PO SCH (09:00)
[2021-09-20] MEDS: PANTOprazole 40 MG TAB PO SCH (09:00)
[2021-09-20] MEDS ORDERED: LIDOCAINE 2% 2 ML VIAL/AMP(20MG/ML) INFIL ONE (14:48)
[2021-09-20] MEDS ORDERED: PROPOFOL IV EMULSION 10 MG/ML 20 ML VIAL IV ONE (14:48)
[2021-09-20] MEDS ORDERED: fentaNYL citrate 100 MCG/2 ML VIAL ONE ×2 (14:48→17:10)
[2021-09-20] MEDS ORDERED: MIDAZOLAM HCL 1 MG/ML 2ML VIAL ONE (14:48)
[2021-09-20] MEDS ORDERED: EPINEPHrine INJ 1 MG/ML AMP ONE (15:04)
[2021-09-20] MEDS ORDERED: BUPIVACAINE 0.5 % 5 MG/1 ML MPF 30ML VIAL ONE (15:05)
--- NOTE | 2021-09-20 15:05 | Hospitalist Progress Note ---
Date of Service September 20, 2021 Assessment & Plan (1) Diabetic foot infection: Plan: Left great toe diabetic foot infection/Osteomyelitis/Abscess-POA Sepsis-POA Foot MRI:Findings consistent with acute osteomyelitis of the distal phalanx of the left first toe and the mid to distal aspect of the proximal phalanx of the left first toe. Left first toe cellulitis. 1.9 cm fluid collection along the dorsal lateral aspect of the distal phalanx of the left first toe suggestive of an abscess. Extensive dorsal subcutaneous trace edema of the left foot. Blood cultures no growth to date Wound culture growing group B beta strep Appreciate orthopedics input and recommendation Denies any pain Continue daptomycin, cefepime Consider ID evaluation when appropriate Will have partial amputation of the left big toe today We will continue IV antibiotic with Unasyn for now and he may not need prolonged course of antibiotic following amputation Hyponatremia Likely due to HCTZ Sodium levels improved to 139 Hold HCTZ for now Monitor Hypertension Continue lisinopril Monitor -controlled DM II Poorly controlled HbA1c 10.6 Hold p.o. meds Continue insulin therapy while hospitalized Monitor BGs Alcohol use Denies any abuse Monitor for withdrawal Last drink 1 week ago as per patient Fatty liver disease Possible cirrhosis on outpatient MRI of the liver 2019 L[address]s trending down Monitor CT abdomen reviewed Appreciate GI input Normocytic anemia Likely multifactorial--iron deficiency, alcohol use, H/O diverticulosis +FOBT No active bleeding Needs follow-up with GI as outpatient Monitor CBC DVT Px: SCDs Re:+FOBT, Plan for surgery Code Status Full code Admission and Anticipated Discharge Date Admission Date: September 16, 2021 Subjective 09/18/2021 Patient was seen and examined in medical floor He has had second opinion for his left great toe surgery Denies any symptoms September 19, 2021 The patient was seen and examined in medical floor He will have her left big toe amputation tomorrow Denies any symptoms 09/20/2021 The patient was seen and examined in medical floor He has been waiting to go for left big toe amputation Denies any symptoms Review of Systems Review of Systems: All systems reviewed and are unremarkable except as noted below Physical Exam Physical Exam: Lying in bed comfortably Constitutional: well developed, well nourished and + obese; not ill appearing Eyes: PERRL, conjunctivae normal, anicteric sclerae ENMT: external ear and nose normal, oropharynx normal Neck: trachea midline, no thyromegaly Respiratory: no respiratory distress Auscultation: lungs clear to auscultation bilaterally Cardiovascular: Rate/Rhythm: regular rate and regular rhythm; not tachycardic Heart Sounds: normal S1 and normal S2; no murmur Extremities: + edema (Trace edema bilaterally) Gastrointestinal (Abdomen): Inspection/Auscultation: normal bowel sounds; abdomen not distended Percussion/Palpation: abdomen soft; abdomen nontender Musculoskeletal: Left foot is bandaged. Has bilateral leg varicosities Neurologic: Alert, awake and oriented x3. No focal sensory and motor deficit appreciated Lymphatic: no cervical or axillary lymphadenopathy Results & Data Results & Data ([facility]) Vital Signs (Past 12 Hours) Vital Signs Temp Pulse Resp BP Pulse Ox 09/20/21 07:34 36.9 C 71 16 124/75 95 Medications Administered Current Inpatient Medications Acetaminophen (Acetaminophen 325 Mg Tab) 325 mg PO Q6H PRN PRN Reason: Mild Pain Stop: 10/16/21 03:21 Dextrose (Dextrose 50% 50 Ml Syringe) 25 - 50 ml IV UD PRN; Protocol PRN Reason: Hypoglycemia Protocol Stop: 10/16/21 02:45 Glucagon (Glucagon For Inj 1 Mg Vial) 1 mg SQ UD PRN; Protocol PRN Reason: Hypoglycemia Protocol Stop: 10/16/21 02:45 Glucose (Glucose 10 Tabs/Tube) 4 - 8 tabs PO UD PRN; Protocol PRN Reason: Hypoglycemia Protocol Stop: 10/16/21 02:45 Glucose (Glucose 40% Gel 15 Gm Tube) 15 - 30 gm PO UD PRN; Protocol PRN Reason: Hypoglycemia Protocol Stop: 10/16/21 02:45 Lorazepam (Ativan) 0.5 mg in 1 mls @ 1 mls/min IV Q4H PRN PRN Reason: Anxiety/Agitation Stop: 10/16/21 02:45 Promethazine HCl 12.5 mg/ (Sodium Chloride) 50.5 mls @ 202 mls/hr IV Q6H PRN PRN Reason: Nausea And Vomiting Stop: 10/16/21 02:45 Cefepime HCl 2,000 mg/ Syringe 20 mls @ 5 mls/min IV Q8H [facility]; Protocol Stop: 09/20/21 19:59 Last Admin: 09/20/21 12:23 Dose: 5 mls/min Documented by: Ampicillin Sodium/Sulbactam Sodium 3,000 mg/ Sodium Chloride 108 mls @ 216 mls/hr IV Q6H [facility] Stop: 11/01/21 17:59 Insulin Aspart (Insulin Aspart 100 Units/Ml 3 Ml Pen) 0 units SC Q6 [facility] Stop: 10/20/21 05:59 Last Admin: 09/20/21 12:17 Dose: Not Given Documented by: Insulin Glargine (Insulin Glargine Solostar 100 Units/Ml 3 Ml Pen) 20 units SC HS [facility] Stop: 10/18/21 20:59 Last Admin: 09/19/21 21:17 Dose: 20 units Documented by: Lisinopril (Lisinopril 20 Mg Tab) 20 mg PO QAM [facility] Stop: 10/16/21 08:59 Last Admin: 09/19/21 10:03 Dose: 20 mg Documented by: Loratadine (Loratadine 10 Mg Tab) 10 mg PO DAILY [facility] Stop: 10/16/21 08:59 Last Admin: 09/19/21 10:02 Dose: 10 mg Documented by: Miscellaneous (Carbohydrates For Hypoglycemia ) 15 - 30 gm PO UD PRN PRN Reason: Hypoglycemia Protocol Stop: 10/16/21 02:45 Morphine Sulfate (Morphine Sulfate 4 Mg/Ml 1 Ml Carp\Vial) 4 mg IV Q4H PRN PRN Reason: Pain Stop: 09/30/21 02:45 Multivitamins (Multivitamin Tab) 1 tab PO DAILY [facility] Stop: 10/16/21 08:59 Last Admin: 09/19/21 10:03 Dose: 1 tab Documented by: Oxycodone HCl (Oxycodone Hcl Ir 5 Mg Tab (Immediate Release)) 5 mg PO Q4H PRN PRN Reason: Pain Stop: 09/30/21 02:45 Pantoprazole Sodium (Pantoprazole 40 Mg Tab) 40 mg PO DAILY [facility] Stop: 10/16/21 08:59 Last Admin: 09/19/21 10:03 Dose: 40 mg Documented by:
[2021-09-20] MEDS ORDERED: ONDANSETRON INJ 2 MG/ML 2 ML VIAL IV PRN (15:07)
[2021-09-20] MEDS ORDERED: ePHEDrine sulfate 50 MG/ML AMP IV PRN (15:07)
[2021-09-20] MEDS ORDERED: ATROPINE SULFATE 0.1 MG/ML 10ML SYR IV PRN (15:07)
[2021-09-20] MEDS ORDERED: fentaNYL citrate 100 MCG/2 ML VIAL IV PRN (15:07)
[2021-09-20] MEDS ORDERED: HYDROmorphone INJ 2 MG/ML SYR/VIAL IV PRN (15:07)
--- NOTE | 2021-09-20 16:55 | History & Physical Bridge Note ---
Date of Service September 20, 2021 History & Physical Bridge Note I have examined the patient, reviewed the History & Physical and in the interval since the performance of the History & Physical I have noted the following changes of clinical significance: no changes noted
[2021-09-20] MEDS ORDERED: ONDANSETRON INJ 2 MG/ML 2 ML VIAL ONE (17:30)
[2021-09-20] MEDS ORDERED: PHENYLEPHRINE HCL 10 MG/ML VIAL ONE (17:30)
--- NOTE | 2021-09-20 18:00 | Post Operative Brief Note ---
Immediate Post Op Note v1 Date of Surgery September 20, 2021 Pre & Post Diagnosis Operation Date: 09/18/21 08:10 <No data on this case meets the specified criteria> Operation Date: 09/20/21 07:00 Pre-Op Diagnosis: Osteomyelitis, great left toe; Septic tenosynovitis extensor hallucis longus Post-Op Diagnosis: Osteomyelitis, great left toe; Septic tenosynovitis extensor hallucis longus I identified the patient and participated in the time-out.: Yes Procedure Operation Date: 09/18/21 08:10 <No data on this case meets the specified criteria> Operation Date: 09/20/21 07:00 Actual Procedures p Left Great Toe Amputation, Tenosynovectomy, Extensor Hallucis Longus tendon (Left) - Uvaldo Vásquez DO Surgeon Uvaldo Vásquez DO Deicer Finisher None Estimated Blood Loss 1 Findings Consistent with Post-Op Diagnosis Specimens Aerobic, anaerobic, Gram stain deep great toe left Great toe amputation specimen Drains Other (Iodoform gauze packing) Complications none Disposition Accompanied Patient To Recovery: No
--- NOTE | 2021-09-20 18:22 | Anesthesiology Progress Note ---
Date of Service September 20, 2021 Anesthesia Post Procedure Vital Signs Vital Signs: Temp Pulse Resp BP Pulse Ox Pulse Ox 09/20/21 18:15 88 18 113/76 97 09/20/21 18:05 36.2 C L 89 18 102/54 L 99 09/20/21 14:55 36.7 C 86 18 130/86 99 09/20/21 07:34 36.9 C 71 16 124/75 95 09/19/21 22:13 36.5 C 79 18 133/81 98 09/19/21 21:15 98 Pain Intensity Left Great Toe: Pain Intensity: 0 Transfer of Care Handoff Completed per policy Notes Mental Status: alert / awake / arousable and participated in evaluation Patient Amnestic to Procedure: Yes Nausea / Vomiting: adequately controlled Pain: adequately controlled Airway Patency, RR, SpO2: stable & adequate BP & HR: stable & adequate Hydration State: stable & adequate Anesthetic Complications: no major complications apparent and Pt Satisfied with anesthetic care
[2021-09-20] MEDS: AMPICILLIN/SULBACTAM SOD 3,000 MG in 0.9 % SODIUM CHLORIDE 100 ML IV SCH (19:04)
[2021-09-20] MEDS: INSULIN GLARGINE SOLOSTAR 100 UNITS/ML 3 ML PEN SC SCH (21:00)
--- NOTE | 2021-09-20 22:45 | Operative Report (OR) ---
DATE OF PROCEDURE: 09/20/2021 PREOPERATIVE DIAGNOSES: 1. Left great toe osteomyelitis. 2. Septic tenosynovitis of the extensor hallucis longus tendon. POSTOPERATIVE DIAGNOSES: 1. Left great toe osteomyelitis. 2. Septic tenosynovitis of the extensor hallucis longus tendon. PROCEDURES PERFORMED: 1. Left great toe amputation. 2. Tenosynovectomy of the extensor hallucis longus tendon. SURGEON: Uvaldo Vásquez DO. VISUAL PRESENTATION MANAGER: None. ANESTHESIA: General, regional. SPECIMENS: 1. Aerobic, anaerobic, Gram stain - deep, left great toe. 2. Left great toe amputation. DRAINS: Iodoform gauze packing. COMPLICATIONS: None. BLOOD LOSS: 1 mL. PERTINENT HISTORY: This is a 61-year-old gentleman with chronic, progressive and worsening left grea t toe pain, swelling, erythema with associated cellulitis. He attempted and failed conservative shay gement, admitted to the hospitalist service, placed on IV antibiotics. MRI and radiographs confirmed osteomyelitis extending into the proximal phalanx of the great toe. Decision was made for surgical amputation of the left great toe and suspicion for tenosynovectomy of the extensor hallucis longus. The patient was scheduled for surgery as indicated. All potential risks, benefits, complications, alternatives, rehab potential for incomplete relief of symptoms, DVT, PE, , persistent pain, swelling, scarring, weakness, neurovascular injury, wound complications, need for further surgery or amputation was discussed with the patient. The patient de cided to proceed with the procedure as indicated. DESCRIPTION OF PROCEDURE: The patient was taken to the operative suite and placed supine on the oper ating table. After review of consent and identification of proper site, the patient was anesthetized , LMA was placed. Left lower extremity was then sterilely prepped and draped in usual fashion, eleva otf and partially exsanguinated with an Esmarch bandage, and Esmarch tourniquet applied over sterile surgical towel at the level of the ankle. Next, the surgical timeout was performed. A 15 blade scalpel was used to make a [id number] incision beginning just distal to the base of the left great toe, extending distally circumferentially incising the tissue down to bone at the l evel of the proximal phalanx and then extending proximally to rejoin the initial incision. Next, the incision was then deepened through the skin and subcutaneous tissue, periosteum dorsally, extending medial and lateral and then full-thickness skin flaps were then incised. A towel clip was used to gr asp the distal aspect of the great toe. Purulent discharge was noted from the deep region of the left great toe. Specimens were obtained for aerobic, anaerobic, Gram stain. Next, the distal phalanx wa s then sharply excised and passed off as specimen. Next, a towel clip was used to grasp the proximal phalanx and it penetrated easily indicating indeed that there was osteomyelitis with markedly softened bone with loss of mechanical structure. Next, a circumferential release of the joint capsule of the first metatarsophalangeal joint was then performe d with a 15 blade scalpel. Purulent discharge was noted around the base of the proximal phalanx of t he left great toe. Next, after release of the joint capsular tissues and collateral ligaments was pe rformed, the proximal phalanx of the great toe was then passed off as specimen. Next, the skin flaps were revised for a low tension closure and the extensor tendon was then visualiz ed and noted to have tenosynovitis with septic features, with suppurative discharge. Next, the exten sor tendon was then grasped with an Allis clamp and then placed on tension. Tenosynovectomy was then performed with a rongeur back to healthy-appearing extensor tendon and the rest was then incised wit h a 15 blade scalpel. Next, copious lavage was then performed with saline until clear. Top gloves and top sheet were suresh ed followed by packing with 1/2 inch iodoform gauze exiting through a small dorsal puncture with a 15 blade scalpel proximal to the site of incision. Next, the skin flaps were then closed using low ten lindsay technique using a combination of horizontal mattress and simple sutures using a 3-0 nylon. Next , a digital block and forefoot block was then performed with 0.5% Marcaine plain, approximately 20 mL . Once this was completed, a sterile gently compressive dressing was applied overwrapped with an John wrap. The tourniquet was released. The patient was then awakened and taken to recovery in stable c ondition. Job ID: [id number]
[2021-09-21] MEDS: AMPICILLIN/SULBACTAM SOD 3,000 MG in 0.9 % SODIUM CHLORIDE 100 ML IV SCH ×5 (00:26→23:02)
[2021-09-21] MEDS: MULTIVITAMIN TAB PO SCH (08:33)
[2021-09-21] MEDS: LORATADINE 10 MG TAB PO SCH (08:33)
[2021-09-21] MEDS: lisinopril 20 MG TAB PO SCH (08:33)
[2021-09-21] MEDS: PANTOprazole 40 MG TAB PO SCH (08:33)
--- NOTE | 2021-09-21 10:03 | Orthopedic Progress Note ---
Date of Service September 21, 2021 Assessment & Plan (1) Osteomyelitis of great toe of left foot: Plan: POD 1 PT/OT - WBAT on heel only DVT proph - SCD's; Consider ASA daily Pain management as written Dressing change tomorrow Admission and Anticipated Discharge Date Admission Date: September 16, 2021 Subjective POD 1 Pt sitting up in bed awake, alert. No complaints. Minimal discomfort. Physical Exam Physical Exam: Dressings are C/D/I. Remainder of toes mobile. Results & Data ([facility]) Vital Signs (Past 12 Hours) Vital Signs Temp Pulse Resp BP Pulse Ox 09/21/21 07:20 36.7 C 86 16 127/80 94 09/21/21 04:40 36.8 C 82 17 144/70 H 97
[2021-09-21] MEDS: INSULIN ASPART 100 UNITS/ML 3 ML PEN SC SCH ×4 (10:39→20:57)
--- NOTE | 2021-09-21 11:02 | Hospitalist Progress Note ---
Date of Service September 21, 2021 Assessment & Plan (1) Diabetic foot infection: Plan: Left great toe diabetic foot infection/Osteomyelitis/Abscess-POA Sepsis-POA Foot MRI:Findings consistent with acute osteomyelitis of the distal phalanx of the left first toe and the mid to distal aspect of the proximal phalanx of the left first toe. Left first toe cellulitis. 1.9 cm fluid collection along the dorsal lateral aspect of the distal phalanx of the left first toe suggestive of an abscess. Extensive dorsal subcutaneous trace edema of the left foot. Blood cultures no growth to date Wound culture growing group B beta strep Appreciate orthopedics input and recommendation Denies any pain Continue daptomycin, cefepime Consider ID evaluation when appropriate Will have partial amputation of the left big toe today We will continue IV antibiotic with Unasyn for now and he may not need prolonged course of antibiotic following amputation Status post left great toe amputation and tenosynovectomy of left extensor hallucis longus-09/20/2021 Appreciate Ortho management Awaiting micro biology report on the amputation Like to do give oral antibiotic to finish the course of 10 days in total Hyponatremia Likely due to HCTZ Sodium levels improved to 139 Hold HCTZ for now Monitor-we will check PRP tomorrow Hypertension Continue lisinopril Monitor -controlled DM II Poorly controlled HbA1c 10.6 Hold p.o. meds Continue insulin therapy while hospitalized Monitor BGs Alcohol use Denies any abuse Monitor for withdrawal Last drink 1 week ago as per patient Fatty liver disease Possible cirrhosis on outpatient MRI of the liver [address] L[address] trend[address] down Monitor CT abdomen reviewed Appreciate GI input Normocytic anemia Likely multifactorial--iron deficiency, alcohol use, H/O diverticulosis +FOBT No active bleeding Needs follow-up with GI as outpatient Monitor CBC DVT Px: SCDs Re:+FOBT, Plan for surgery Code Status Full code Admission and Anticipated Discharge Date Admission Date: September 16, 2021 Subjective 09/18/2021 Patient was seen and examined in medical floor He has had second opinion for his left great toe surgery Denies any symptoms September 19, 2021 The patient was seen and examined in medical floor He will have her left big toe amputation tomorrow Denies any symptoms 09/20/2021 The patient was seen and examined in medical floor He has been waiting to go for left big toe amputation Denies any symptoms 09/21/2021 The patient was seen and examined in medical floor He is a status post left great toe amputation and Tenosynovectomy of extensor hallucis longus on 09/20/2021 Minimal pain without any other symptoms Review of Systems Review of Systems: All systems reviewed and are unremarkable except as noted below Musculoskeletal: Pain in the left great toe amputation site Physical Exam Physical Exam: Lying in bed comfortably Constitutional: well developed, well nourished and + obese; not ill appearing Eyes: PERRL, conjunctivae normal, anicteric sclerae ENMT: external ear and nose normal, oropharynx normal Neck: trachea midline, no thyromegaly Respiratory: no respiratory distress Auscultation: lungs clear to auscultation bilaterally Cardiovascular: Rate/Rhythm: regular rate and regular rhythm; not tachycardic Heart Sounds: normal S1 and normal S2; no murmur Extremities: + edema (Trace edema bilaterally) Gastrointestinal (Abdomen): Inspection/Auscultation: normal bowel sounds; abdomen not distended Percussion/Palpation: abdomen soft; abdomen nontender Musculoskeletal: Left foot is bandaged and he is status post left great toe amputation Neurologic: Alert, awake and oriented x3 Lymphatic: no cervical or axillary lymphadenopathy Results & Data Results & Data ([facility]) Vital Signs (Past 12 Hours) Vital Signs Temp Pulse Resp BP Pulse Ox 09/21/21 07:20 36.7 C 86 16 127/80 94 09/21/21 04:40 36.8 C 82 17 144/70 H 97 Medications Administered Current Inpatient Medications Acetaminophen (Acetaminophen 325 Mg Tab) 325 mg PO Q6H PRN PRN Reason: Mild Pain Stop: 10/16/21 03:21 Dextrose (Dextrose 50% 50 Ml Syringe) 25 - 50 ml IV UD PRN; Protocol PRN Reason: Hypoglycemia Protocol Stop: 10/16/21 02:45 Glucagon (Glucagon For Inj 1 Mg Vial) 1 mg SQ UD PRN; Protocol PRN Reason: Hypoglycemia Protocol Stop: 10/16/21 02:45 Glucose (Glucose 10 Tabs/Tube) 4 - 8 tabs PO UD PRN; Protocol PRN Reason: Hypoglycemia Protocol Stop: 10/16/21 02:45 Glucose (Glucose 40% Gel 15 Gm Tube) 15 - 30 gm PO UD PRN; Protocol PRN Reason: Hypoglycemia Protocol Stop: 10/16/21 02:45 Lorazepam (Ativan) 0.5 mg in 1 mls @ 1 mls/min IV Q4H PRN PRN Reason: Anxiety/Agitation Stop: 10/16/21 02:45 Promethazine HCl 12.5 mg/ (Sodium Chloride) 50.5 mls @ 202 mls/hr IV Q6H PRN PRN Reason: Nausea And Vomiting Stop: 10/16/21 02:45 Ampicillin Sodium/Sulbactam Sodium 3,000 mg/ Sodium Chloride 108 mls @ 216 mls/hr IV Q6H RUSSEL Stop: 11/01/21 17:59 Last Infusion: 09/21/21 05:50 Dose: Infused Documented by: Insulin Aspart (Insulin Aspart 100 Units/Ml 3 Ml Pen) 0 units SC ACHS [facility] Stop: 10/20/21 20:59 Last Admin: 09/21/21 10:39 Dose: 3 units Documented by: Insulin Glargine (Insulin Glargine Solostar 100 Units/Ml 3 Ml Pen) 20 units SC HS [facility] Stop: 10/18/21 20:59 Last Admin: 09/20/21 21:00 Dose: 20 units Documented by: Lisinopril (Lisinopril 20 Mg Tab) 20 mg PO QAM [facility] Stop: 10/16/21 08:59 Last Admin: 09/21/21 08:33 Dose: 20 mg Documented by: Loratadine (Loratadine 10 Mg Tab) 10 mg PO DAILY [facility] Stop: 10/16/21 08:59 Last Admin: 09/21/21 08:33 Dose: 10 mg Documented by: Miscellaneous (Carbohydrates For Hypoglycemia ) 15 - 30 gm PO UD PRN PRN Reason: Hypoglycemia Protocol Stop: 10/16/21 02:45 Morphine Sulfate (Morphine Sulfate 4 Mg/Ml 1 Ml Carp\Vial) 4 mg IV Q4H PRN PRN Reason: Pain Stop: 09/30/21 02:45 Multivitamins (Multivitamin Tab) 1 tab PO DAILY [facility] Stop: 10/16/21 08:59 Last Admin: 09/21/21 08:33 Dose: 1 tab Documented by: Pantoprazole Sodium (Pantoprazole 40 Mg Tab) 40 mg PO DAILY [facility] Stop: 10/16/21 08:59 Last Admin: 09/21/21 08:33 Dose: 40 mg Documented by:
[2021-09-21] MEDS: INSULIN GLARGINE SOLOSTAR 100 UNITS/ML 3 ML PEN SC SCH (20:58)
[2021-09-22] MEDS: AMPICILLIN/SULBACTAM SOD 3,000 MG in 0.9 % SODIUM CHLORIDE 100 ML IV SCH (05:45)
[2021-09-22 06:59] LABS: Basophils # (auto) 0.03 K/uL (0-0.2); Basophils % (auto) 0.4 %; Eosinophils # (auto) 0.12 K/uL (0-0.5); Eosinophils % (auto) 1.6 %; Hematocrit (blood only) 36.8 % (42-52); Hemoglobin 12.6 g/dL (14.0-18.0); Immature Granulocytes # (auto) 0.02 K/uL (0.00-0.02); Immature Granulocytes % (auto) 0.3 %; Lymphocytes # (auto) 1.32 K/uL (1.2-3.4); Lymphocytes % (auto) 17.3 %; Mean Corpuscular Hemoglobin 33.5 pg (25-34); Mean Corpuscular Hgb Conc 34.2 g/dL (32-36); Mean Corpuscular Volume 97.9 fL (80-100); Mean Platelet Volume 9.3 fL (7.4-10.4); Monocytes # (auto) 1.02 K/uL (0.11-0.59); Monocytes % (auto) 13.4 %; Neutrophils # (auto) 5.11 K/uL (1.4-6.5); Platelet Count 290 K/uL (130-400); RDW Standard Deviation 42.6 fL (36.4-46.3); Red Blood Count 3.76 M/uL (4.7-6.1); White Blood Count 7.62 K/uL (4.8-10.8)
[2021-09-22 07:37] LABS: BUN Creatinine Ratio 11.1 (10-20); Calcium 9.2 mg/dl (8.5-10.1); Creatinine Clr Calc Pharmacy 124.1 ml/min; Est GFR (African American) 108.2 ml/min; Est GFR (Non-African American) 93.4 ml/min; Potassium 3.9 mmol/L (3.5-5.1)
[2021-09-22 07:52] VITALS: BP 149/89; PULSE 79; TEMP 98.4; O2SAT 95
--- NOTE | 2021-09-22 07:54 | Orthopedic Progress Note ---
Date of Service September 22, 2021 Assessment & Plan (1) Osteomyelitis of great toe of left foot: Plan: POD 2 PT/OT - WBAT on heel only DVT proph - SCD's; Consider ASA daily Pain management as written Ok from Ortho standpoint for patient to be discharged. Will sign off at this time. Instructions placed in DC section. Admission and Anticipated Discharge Date Admission Date: September 16, 2021 Subjective POD 2 Pt sitting up in bed reading. No complaints. States he had a good night. Hoping to go home today. Physical Exam Physical Exam: Dressings removed. Wound well approximated. Mild erythema at wound edges. No purulent drainage. All Iodiform gauze removed. New dressing reapplied. Results & Data ([facility]) Vital Signs (Past 12 Hours) Vital Signs Temp Pulse Resp BP Pulse Ox 09/21/21 23:34 37 C 76 17 160/80 H 97
[2021-09-22] MEDS: lisinopril 20 MG TAB PO SCH (08:40)
[2021-09-22] MEDS: PANTOprazole 40 MG TAB PO SCH (08:40)
[2021-09-22] MEDS: MULTIVITAMIN TAB PO SCH (08:40)
[2021-09-22] MEDS: LORATADINE 10 MG TAB PO SCH (08:41)
[2021-09-22] MEDS: INSULIN ASPART 100 UNITS/ML 3 ML PEN SC SCH (09:26)
--- NOTE | 2021-09-22 11:14 | Discharge Summary ---
Date of Service September 22, 2021 Admission HPI Per Admitting Provider History obtained from patient and records. Medical history significant for hypertension, hyperlipidemia, DM2 on oral medications, fatty liver disease, daily alcohol intake, history sigmoid diverticulosis, past tobacco abuse. A month ago, patient noted a thickened wound on the tip of his left great toe. Patient self-medicating with OTC topical antibiotics. Worsening swelling progressing to involve the foot and left lower leg without chest pain, S OB, fever, chills. Patient seen at urgent care center last week. Patient prescribed doxycycline course which resulted in transient improvement of swelling. Last few days, left great toe skin noted to be blistered subsequently sloughing off with subsequent drainage of purulent fluid. Patient sent to ER by urgent care center for further evaluation due to concerns for osteomyelitis on outpatient x-rays. Patient received vancomycin and Zosyn at the ER. Medical History as above Colonoscopy 2009 showed sigmoid diverticulosis and anal lipoma Surgical History : Vasectomy, tonsillectomy/adenoidectomy Family History : DM, heart disease Personal/Social history : Past tobacco abuse, daily alcohol intake/denies abuse, insurance company employment Principal Diagnosis sepsis 2/2 osteomyelitis of great toe of left foot s/p amputation Discharge Exam Gen: WD/WN, NAD, sitting in bed, A&Ox3 HEENT: Normocephalic, atraumatic, conjunctivae moist, sclerae anicteric, mucous membranes moist Lung: Clear to Auscultation bilaterally, no wheezes/rales/rhonchi Heart: Regular rate, regular rhythm, no murmurs, rubs, or gallops Abdomen: Soft, NT, ND +BS x 4 Extremities: L great toe surgical dressing c/d/i, no edema Skin: Warm, no rash Constitutional well developed, well nourished and + obese; not ill appearing Eyes PERRL, conjunctivae normal, anicteric sclerae ENMT external ear and nose normal, oropharynx normal Neck trachea midline, no thyromegaly Respiratory no respiratory distress Auscultation: lungs clear to auscultation bilaterally Cardiovascular Rate/Rhythm: regular rate and regular rhythm; not tachycardic Heart Sounds: normal S1 and normal S2; no murmur Extremities: + edema (Trace edema bilaterally) Gastrointestinal (Abdomen) Inspection/Auscultation: normal bowel sounds; abdomen not distended Percussion/Palpation: abdomen soft; abdomen nontender Lymphatic no cervical or axillary lymphadenopathy Discharge Data Allergies Allergy/AdvReac Type Severity Reaction Status Date / Time No Known Allergies Allergy Unknown Verified 09/15/21 19:53 Consultations 09/15/21 21:28 ED Decision to Admit Stat 09/16/21 00:34 Consult Orthopedic Surgery Routine 09/16/21 02:46 Consult Gastroenterology Routine 09/18/21 10:37 Consult Orthopedic Surgery Routine Procedures Performed Operation Date: 09/18/21 08:10 <No data on this case meets the specified criteria> Operation Date: 09/20/21 07:00 Actual Procedures p Left Great Toe Amputation, Tenosynovectomy, Extensor Hallucis Longus(Left) - Uvaldo Boss DO Ordered Studies 09/15/21 19:33 US venous doppler LE LT Stat 09/16/21 09:49 MR foot LT w/o con Urgent 09/17/21 09:08 CT abd pelvis IV con only Routine Diabetes Follow up Diabetes Follow-up Needed for HgbA1c >9% Hospital Course (1) Diabetic foot infection: Left great toe diabetic foot infection/Osteomyelitis/Abscess-POA Sepsis-POA Foot MRI:Findings consistent with acute osteomyelitis of the distal phalanx of the left first toe and the mid to distal aspect of the proximal phalanx of the left first toe. Left first toe cellulitis. 1.9 cm fluid collection along the dorsal lateral aspect of the distal phalanx of the left first toe suggestive of an abscess. Extensive dorsal subcutaneous trace edema of the left foot. Blood cultures no growth to date Wound culture growing group B beta strep Appreciate orthopedics input and recommendation Denies any pain Continue daptomycin, cefepime Consider ID evaluation when appropriate Will have partial amputation of the left big toe today We will continue IV antibiotic with Unasyn for now and he may not need prolonged course of antibiotic following amputation Status post left great toe amputation and tenosynovectomy of left extensor hallucis longus-09/20/2021 Appreciate Ortho management Awaiting micro biology report on the amputation Like to do give oral antibiotic to finish the course of 10 days in total Hyponatremia Likely due to HCTZ Sodium levels improved to 139 Hold HCTZ for now Monitor-we will check PRP tomorrow Hypertension Continue lisinopril Monitor -controlled DM II Poorly controlled HbA1c 10.6 Hold p.o. meds Continue insulin therapy while hospitalized Monitor BGs Alcohol use Denies any abuse Monitor for withdrawal Last drink 1 week ago as per patient Fatty liver disease Possible cirrhosis on outpatient MRI of the liver 2019 L[address]s trend[address] down Monitor CT abdomen reviewed Appreciate GI input Normocytic anemia Likely multifactorial--iron deficiency, alcohol use, H/O diverticulosis +FOBT No active bleeding Needs follow-up with GI as outpatient Monitor CBC DVT Px: SCDs Re:+FOBT, Plan for surgery Code Status Full code Total Time Total Time Spent Total Time Spent (In Minutes): 35 minutes Discharge Plan Discharge Items Patient Disposition: Home - Self-Care Reason For Visit: HYPONATREMIA, SEPSIS Discharge Diagnosis: sepsis 2/2 osteomyelitis of great toe of left foot s/p amputation Activity: Per Instructions section Non-emergency contact: Primary Care Provider Call non-emergency contact if: you have any medication questions, your symptoms worsen, your pain is not controlled and you have a fever Follow-up/Referrals: Uvaldo Boss DO [Surgeon] - 10/03/21 2:15 pm (Follow up in 10-14 days from the day of surgery for wound check.) Chon Garrido DO [Physician] - (Date & Time 09/26/2021 10:20 AM Provider Chon Garrido DO Department [facility] ) Diet: Carb Consistent or DM2 Addtl Attending Provider Instructions: Cam, Baldemar were admitted for sepsis due to bone infection of great toe of left foot. You underwent left great toe amputation and tenosynovectomy of left extensor hallucis longus on 09/20/2021. You have been receiving IV antibiotics. Blood cultures have not shown any growth to date. Repeat wound cultures of toe are growing staphylococcus species - sensitivities are still pending. Will discharge you home on additional 10 day course of Augmentin as well as 15 day course of probiotics. Please follow wound, weight bearing and follow up instructions with Dr. Boss [place] [facility] as mentioned below. You were also seen by dust puller during your stay due to poorly controlled diabetes. It is important to improve your control of diabetes to prevent future wounds and other complications. Please make medication changes as mentioned below and implement dietary changes discussed with educator. Follow up with primary care doctor for repeat hgb a1c and continued diabetes care. MEDICATION CHANGES: Take Augmentin twice a day for 10 days to complete antibiotic course for your toe. Take probiotic twice daily for the next 15 days. Continue Lantus 20u every night. Increase Metformin to 1,000mg twice daily. SUMMARY OF TEST RESULTS: Hemoglobin a1c 10.6 on 09/15/21 PENDING RESULT: Repeat wound cultures of toe are growing staphylococcus species - final sensitivities are still pending - you will receive a call if antibiotic needs to be changed based on results. RECOMMENDATIONS FOR FOLLOW-UP: Please follow up with Dr. Isabel Garrido on 09/26/21 at 10:20am. Please follow up with [facility] within 10-14 days as mentioned above. OTHER INSTRUCTIONS: Seek medical attention if you have: * temperature above 101 * chest pain or trouble breathing * abdominal pain, nausea, vomiting * diarrhea, dark stools or bloody stools * any unanswered questions or concerns Call [phone] if symptoms are severe. Please take good care of yourself. Call if you have any questions or problems. You can reach a [facility] hospitalist on duty at [facility] 24 hours a day by calling [phone]. Nupur Castillo PA-C [facility] Hospitalist Addtl Agency Service Coordinator Provider Instructions: ACTIVITY RECOMMENDATIONS: Limitations: Heel weight bearing only if able to tolerate. SPECIAL CARE INSTRUCTIONS: * Some drainage onto the dressing is normal and is no cause for alarm. * Some swelling is natural especially after walking. * When resting, keep your foot elevated above the level of your heart. * Call [facility] if you notice: -Increased drainage -Fever over 101 degrees F -Severe constant pain BANDAGE: * CHANGE BANDAGE DAILY. AFTER 1 WEEK, CHANGE BANDAGE EVERY OTHER DAY IF WOUND REMAINS DRY. KEEP WOUND COVERED WITH BANDAGE UNTIL SEEN FOR RETURN VISIT. . * Keep bandage/cast dry at all times. FOLLOW UP VISIT WITH DR. BOSS If appointment is not already scheduled: Please call [facility] after you get home today to schedule a follow-up appointment in 10-14 days from the day of your surgery with Dr. Boss at . Pending Studies at Discharge: No Stand-Alone Forms: My [facility] fundfindr, Smoking Cessation Medications and DC Order Prescriptions: New Lantus Solostar U-100 Insulin 100 unit/mL (3 mL) Insulin Pen 20 unit SC HS Qty: 2 RF: 0 Lactinex 1 million cell tablet,chewable 1 tab PO BID Qty: 30 RF: 0 amoxicillin-pot clavulanate [Augmentin] 875-125 mg tablet 1 tab PO BID Qty: 20 RF: 0 Continued multivitamin Tablet 1 tab PO DAILY Qty: 0 RF: 0 aspirin 81 mg Tablet,Delayed Release (Dr/Ec) 81 mg PO DAILY RF: 0 acetaminophen 500 mg Tablet 1,000 mg PO DAILY RF: 0 omeprazole 20 mg Capsule,Delayed Release(Dr/Ec) 20 mg PO DAILY RF: 0 lisinopril-hydrochlorothiazide 20-25 mg Tablet 1 tab PO DAILY RF: 0 loratadine [Claritin] 10 mg Tablet 10 mg PO DAILY RF: 0 Changed metformin 1,000 mg Tablet 1,000 mg PO BID Qty: 0 RF: 0 Discharge Orders: Discharge Order (Routine); Ordered 09/22/21 Ordered By: Nupur Castro/Other Patient Handouts: A1C, High Blood Sugar (Hyperglycemia), Managing Type 2 Diabetes Admission Data Admit Date/Time: 09/16/21 00:28 Attending Provider: Mauricio Todd Admit Provider: Randy Stevenson Primary Care Provider: PCP,NO Other Providers: Brian Villegas ; [facility] ; Randy Stevenson ; Francisco Gautam ; Jean-Pierre Miller ; Benedict Campos ; Roseline Sher ; Chris Bah ; Yeny Ruby ; Joaquim Escudero ; Cristin Gallardo ; Clyde Castillo ; Flynn Claudio ; Barry Lai Brian A ; Thomas, Lorella G. ; Jenifer Alejandra ; [place] ; Jennifer Valles ; Eduar Abbott ; Jeff Stafford ; Janis Kim ; Isaac Martínez ; Mikki Landers ; Ilana Good ; Jacqueline Childress ; Kay Eldridge ; Fabio Natarajan ; Munir Castillo ; Nupur Castillo Other Interventions: Discharge Summary Assessment (RN) Last Done: 09/22/21 12:10 Supervising Physician Co-Signing Physician Notes Attending addendum The patient was seen and examined in medical floor He denies any symptoms and has had PT and OT evaluation He remains hemodynamically stable and will be discharged home this afternoon. The discharge summary, medications, discharge instructions were reviewed and agree with as planned by MERON Mclean DR
== END 2021-09-22 13:11 | disposition home or self-care (01) | DRG 854 ==
LOC: ED 18:10 → 2N 09-16 00:28 → SUATTDRO 09-16 00:28 → 2N 09-16 02:17 → 3N 09-17 12:11

== ENCOUNTER 2021-11-15 10:56 | Inpatient (IN) ==
[2021-11-15 11:59] LABS: Basophils # (auto) 0.03 K/uL (0-0.2); Basophils % (auto) 0.2 %; Hematocrit (blood only) 37.3 % (42-52); Hemoglobin 12.7 g/dL (14.0-18.0); Immature Granulocytes # (auto) 0.05 K/uL (0.00-0.02); Immature Granulocytes % (auto) 0.3 %; Lymphocytes # (auto) 1.38 K/uL (1.2-3.4); Mean Corpuscular Hemoglobin 32.1 pg (25-34); Mean Corpuscular Volume 94.2 fL (80-100); Mean Platelet Volume 10.7 fL (7.4-10.4); Monocytes # (auto) 1.11 K/uL (0.11-0.59); Monocytes % (auto) 6.4 %; Neutrophils # (auto) 14.65 K/uL (1.4-6.5); Neutrophils % (auto) 85.1 %; Platelet Count 190 K/uL (130-400); RDW Coefficient of Variation 12.6 % (11.5-14.5); RDW Standard Deviation 43.9 fL (36.4-46.3); Red Blood Count 3.96 M/uL (4.7-6.1); White Blood Count 17.22 K/uL (4.8-10.8)
[2021-11-15 12:18] LABS: Albumin Level 3.3 gm/dl (3.4-5.0); BUN Creatinine Ratio 13.5 (10-20); Creatinine Clr Calc Pharmacy 84.7 ml/min; Est GFR (African American) 72.5 ml/min; Est GFR (Non-African American) 62.5 ml/min; Potassium 3.4 mmol/L (3.5-5.1)
[2021-11-15 12:23] LABS: Albumin Globulin Ratio 0.8 (0.9-2); Bilirubin,Total 0.6 mg/dl (0.2-1); Globulin 4.3 gm/dl (2.5-4.0); Total Protein 7.6 gm/dl (6.4-8.2)
[2021-11-15] MEDS ORDERED: VANCOMYCIN HCL 2,500 MG in SODIUM CHLORIDE 0.9% 500 ML IV ONE (15:34)
[2021-11-15] MEDS ORDERED: VANCOMYCIN CONSULT ACTIVE PRN ×2 (15:34→19:37)
[2021-11-15] MEDS ORDERED: cefTRIAXone SODIUM 1,000 MG/50 ML BAG IV STA (15:34)
--- NOTE | 2021-11-15 15:45 | Emergency Department Note ---
History of Present Illness General Chief complaint: Toe Injury/Pain Stated complaint: SWOLLEN TOE & FEVER Time Seen by Provider: 11/15/21 15:28 History of Present Illness 61-year-old male presents the emergency department with a 1 week history of the left second toe pain and swelling and erythema after he tried to clip a toenail. Patient of note states that he is diabetic and that he had an amputation of the left great toe in August 2021 due to a similar presentation. Patient states subjective fever. Patient denies any complaint of leg pain worsening of symptoms in the past 3 days. There are no other mitigating or alleviating factors Home Medications Medication Instructions Recorded Confirmed Type multivitamin 1 tab PO DAILY #0 10/18/07 11/15/21 History acetaminophen 500 mg tablet 1,000 mg PO DAILY 09/15/21 11/15/21 History aspirin 81 mg tablet,delayed 81 mg PO DAILY 09/15/21 11/15/21 History release lisinopril 20 1 tab PO DAILY 09/15/21 11/15/21 History mg-hydrochlorothiazide 25 mg tablet loratadine 10 mg tablet (Claritin) 10 mg PO DAILY 09/15/21 11/15/21 History omeprazole 20 mg capsule,delayed 20 mg PO DAILY 09/15/21 11/15/21 History release metformin 1,000 mg tablet 1,000 mg PO BID #0 tab 09/22/21 11/15/21 Rx insulin glargine 100 unit/mL (3 15 unit SC HS 11/15/21 11/15/21 History mL) subcutaneous pen (Lantus Solostar U-100 Insulin) Allergies Allergy/AdvReac Type Severity Reaction Status Date / Time No Known Allergies Allergy Unknown Verified 11/15/21 15:43 Past Med/Surg History Medical History Anemia DM2 (diabetes mellitus, type 2) Dyslipidemia GERD (gastroesophageal reflux disease) HTN (hypertension) Obesity Seasonal allergies Surgical History No pertinent past surgical history Social History Smoking Status: Never smoker Hx Alcohol Use: Yes Hx Substance Use: No Preferred Language: Vietnamese Communication Ability: Effective Inspector [employer] Required: No Beliefs That Will Affect Care: None Current Living Situation: Spouse Feels Safe at Home: Yes Assistive Devices: Walker Review of Systems A total of 10 systems reviewed and were otherwise negative Constitutional: + chills Integumentary: + rash, + erythema and + skin swelling Physical Exam Vital Signs Vital Signs - 24 hr 11/15/21 11:27 Temperature 36.7 C Temperature Source Temporal Artery Scan Pulse Rate 105 H Respiratory Rate 20 Blood Pressure 96/61 L Blood Pressure Mean 72 Pulse Oximetry 96 Oxygen Delivery Method Room Air Sepsis Recent Fever Within 48 Hours Yes Sepsis New/Unexplained Change in Mental Status N/A Sepsis Action Taken by Nursing No Action Required VITAL SIGNS - Vital signs and nursing notes were reviewed. GENERAL -61-year-old male appearing his stated age who is in no acute distress. Communicates well with provider and answers questions appropriately. SKIN - Without rashes. HEAD - NC/AT. EYES - PERRL with EOMI bilaterally. Sclera anicteric. Palpebral conjunctiva pink and moist with no injection noted. EARS - No deformities of external structures noted on gross examination bilaterally. NOSE - Midline and without cyanosis. No epistaxis or purulent drainage noted. Septum midline without deviation or septal hematoma noted. MOUTH/OROPHARYNX - Without perioral cyanosis. Buccal mucosa pink and moist and without leukoplakia. Tongue midline with equal elevation of palate bilaterally. No tonsillar hypertrophy, erythema, or exudates noted. [] dentition noted. NECK - Neck with FROM. Supple to palpation. LUNGS - Chest wall symmetric without accessory muscle use, intercostals retractions, or central cyanosis. Normal vesicular breath sounds CTA B/L. No wheezes, rales, or rhonchi appreciated. CARDIAC - RRR with S1/S2. No murmur, rubs, or gallops appreciated. ABDOMEN - Abdominal contour nondistended, soft EXTREMITIES - No clubbing or peripheral cyanosis. . +5/5 strength noted in UE/LE bilaterally. Left foot exam reveals amputation of the left great toe the second toe is erythematous with mild weepiness to it and tenderness there is no significant lymphangitis the left foot dorsum is intact without significant swelling or lymphangitis there is no tenderness in the left calf NEUROLOGIC - Cranial nerves II through XII grossly intact. Sensory intact to light touch throughout. PSYCH - A&Ox3 and cooperates fully with examiner. Pt is very pleasant and interacts well with examiner. Course Course Patient was started on IV Rocephin, IV vancomycin, x-ray does not show this, the case was discussed with the [facility] hospitalist for admission for a second toe cellulitis in a diabetic Administered Medications Vancomycin HCl 2,500 mg/ (Sodium Chloride) 550 mls @ 200 mls/hr IV NOW ONE Stop: 11/15/21 18:18 Last Admin: 11/15/21 16:17 Dose: 200 mls/hr Documented by: [id number] Discontinued Medications Ceftriaxone Sodium (Rocephin) 1,000 mg in 50 mls @ 100 mls/hr IV NOW STA Stop: 11/15/21 16:03 Last Admin: 11/15/21 16:17 Dose: 100 mls/hr Documented by: [id number] Medical Decision Making Medical Records Attestation: I reviewed the patient's medical records. Home Medications Current Medication List: was personally reviewed by me Laboratory Data Attestation: I reviewed the patient's lab results. Result diagrams: 11/15/21 11:37 11/15/21 11:37 Lab Results 11/15/21 11/15/21 Range/Units 11:37 11:37 WBC 17.22 H (4.8-10.8) K/uL RBC 3.96 L (4.7-6.1) M/uL Hgb 12.7 L (14.0-18.0) g/dL Hct 37.3 L (42-52) % MCV 94.2 (80-100) fL MCH 32.1 (25-34) pg MCHC 34.0 (32-36) g/dL RDW Std Deviation 43.9 (36.4-46.3) fL RDW Coeff of Tavares 12.6 (11.5-14.5) % Plt Count 190 (130-400) K/uL MPV 10.7 H (7.4-10.4) fL Immature Gran % (Auto) 0.3 % Neut % (Auto) 85.1 % Lymph % (Auto) 8.0 % Childress % (Auto) 6.4 % Eos % (Auto) 0.0 % Baso % (Auto) 0.2 % Neut # (Auto) 14.65 H (1.4-6.5) K/uL Lymph # (Auto) 1.38 (1.2-3.4) K/uL Childress # (Auto) 1.11 H (0.11-0.59) K/uL Eos # (Auto) 0.00 (0-0.5) K/uL Baso # (Auto) 0.03 (0-0.2) K/uL Immature Gran # (Auto) 0.05 H (0.00-0.02) K/uL Sodium 128 L (136-145) mmol/L Potassium 3.4 L (3.5-5.1) mmol/L Chloride 97 L (98-107) mmol/L Carbon Dioxide 23 (21-32) mmol/L Anion Gap 8.0 (3-11) BUN 17 (7-18) mg/dl Creatinine 1.23 (0.6-1.4) mg/dl Est Cr Clr Drug Dosing 84.7 ml/min Est GFR ( Amer) 72.5 ml/min Est GFR (Non-Af Amer) 62.5 ml/min BUN/Creatinine Ratio 13.5 (10-20) Glucose 193 H (70-99) mg/dl Calcium 9.0 (8.5-10.1) mg/dl Total Bilirubin 0.6 (0.2-1) mg/dl AST 28 (15-37) U/L ALT 38 (12-78) Alkaline Phosphatase 71 (45-117) U/L Total Protein 7.6 (6.4-8.2) gm/dl Albumin 3.3 L (3.4-5.0) gm/dl Globulin 4.3 H (2.5-4.0) gm/dl Albumin/Globulin Ratio 0.8 L (0.9-2) Imaging Data Radiologist's Impression: Foot X-Ray 11/15/21 15:32 XR foot LT min 3V routine CLINICAL HISTORY: toe pain TECHNIQUE: 3 views of the left foot were obtained. Comparison: Comparison is made to left foot radiographs 09/15/2021 FINDINGS: There is interval amputation of the first digit. The alignment is anatomic. The joint spaces are well preserved. No soft tissue abnormality is identified. IMPRESSION: No evidence of acute bony injury. ACT 112: Negative or not required by law. Electronically signed by: Silver Driver M.D. 11/15/2021 4:05 PM [facility] Narrative Medical decision making differential diagnosis includes cellulitis osteomyelitis gout, patient has an elevated white blood cell count the decrease in his sodium to 128, patient is diabetic concern for osteomyelitis, given his history the patient had blood culture sent and he was started on IV antibiotics, he will be admitted in the hospital for further treatment Impression & Plan Cellulitis of toe, left Discharge Plan Visit Data Chief Complaint: Toe Injury/Pain Stated Complaint: SWOLLEN TOE & FEVER ED Provider: Yuniel Sandoval Discharge Problem: Cellulitis of toe, left Patient Disposition: Being Evaluated by Hospitalist Forms Stand Alone Forms: [facility] Prescriptions Prescriptions: No Action multivitamin Tablet 1 tab PO DAILY Qty: 0 RF: 0 aspirin 81 mg Tablet,Delayed Release (Dr/Ec) 81 mg PO DAILY RF: 0 acetaminophen 500 mg Tablet 1,000 mg PO DAILY RF: 0 omeprazole 20 mg Capsule,Delayed Release(Dr/Ec) 20 mg PO DAILY RF: 0 lisinopril-hydrochlorothiazide 20-25 mg Tablet 1 tab PO DAILY RF: 0 loratadine [Claritin] 10 mg Tablet 10 mg PO DAILY RF: 0 metformin 1,000 mg Tablet 1,000 mg PO BID Qty: 0 RF: 0 Lantus Solostar U-100 Insulin 100 unit/mL (3 mL) insulin pen 15 unit SC HS RF: 0 Referrals Referrals: Chon Garrido DO [Primary Care Provider] -
--- NOTE | 2021-11-15 16:06 | XRay Report ---
XR foot LT min 3V routine CLINICAL HISTORY: toe pain TECHNIQUE: 3 views of the left foot were obtained. Comparison: Comparison is made to left foot radiographs 09/15/2021 FINDINGS: There is interval amputation of the first digit. The alignment is anatomic. The joint spaces are well preserved. No soft tissue abnormality is identified. IMPRESSION: No evidence of acute bony injury. ACT 112: Negative or not required by law. Electronically signed by: Silver Driver M.D. 11/15/2021 4:05 PM
--- NOTE | 2021-11-15 16:26 | History & Physical Report ---
Date of Service November 15, 2021 Assessment & Plan (1) Cellulitis of second toe, left: Plan: Patient is a 61-year-old male with PMH DM II, HTN, HLD, fatty liver, alcohol use presented to ER with complaint of left second toe redness x 1 week followed by lower leg erythema after clipping toenails. Tactile fever last night. H/O left great toe amputation secondary to osteomyelitis on 09/20/2021. In ER pt afebrile, P: 105, R: 20, BP 96/61 up to 123/77, 96% on room air. WBC: 17. Left foot x-ray: No bony injury noted Meets SIRS & sepsis criteria with leukocytosis and tachycardia In ER given Rocephin, vancomycin Blood cultures pending Lactate: 1.7 IVF Zosyn, Vancomycin MRI foot to r/o osteomyelitis May need to consider ortho consult CBC, BMP in am (2) Hyponatremia: Plan: Na: 129 corrected for glucose of 193 Serum and urine osmolality, urine sodium pending Hold HCTZ (3) Hypokalemia: Plan: K: 3.4 Replace and monitor (4) DM2 (diabetes mellitus, type 2): Plan: A1c: 10.6 on 09/15/21 Hold home meds Basal bolus insulin per protocol (5) HTN (hypertension): Plan: Hold lisinopril, HCTZ Monitor BP DVT Prophylaxis -Heparin SQ Full Code as per discussion with pt Follows with Dr Chon Garrido for routine care Pt was seen and care coordinated with Dr Villegas. See addendum History of Present Illness Chief Complaint: Left 2nd toe redness Primary Care Provider: Chon aGrrido DO Patient is a 61-year-old male with PMH DM II, HTN, HLD, fatty liver, alcohol use presented to ER with complaint of left second toe redness x 1 week. Patient states clipped his toenails a week ago and accidentally clipped skin as well and had some bleeding. Reports over the past week he has developed redness to second toe and past several days has noted redness, edema and discomfort to left lower leg. Unsure of any discharge from area. Reports tactile fever last night. Denies nausea, vomiting. Patient with history of left great toe amputation secondary to osteomyelitis on 09/20/2021. Denies diaphoresis, N/V/D/C, [place], dizziness, syncope, vision changes, neck pain, CP, SOB, orthopnea, palpitations, cough, sore throat, choking, otalgia, rhinorrhea, abdominal pain, paresthesias, weakness, extremity weakness, other extremity edema, rashes, urinary symptoms. In ER pt afebrile, P: 105, R: 20, BP 96/61 up to 123/77, 96% on room air. WBC: 17. Lactate: 1.7. Left foot x-ray: No bony injury noted In ER given Rocephin, vancomycin Allergies Allergy/AdvReac Type Severity Reaction Status Date / Time No Known Allergies Allergy Unknown Verified 11/15/21 15:43 Home Medications Medication Instructions Recorded Confirmed Type multivitamin 1 tab PO DAILY #0 10/18/07 11/15/21 History acetaminophen 500 mg tablet 1,000 mg PO DAILY 09/15/21 11/15/21 History aspirin 81 mg tablet,delayed 81 mg PO DAILY 09/15/21 11/15/21 History release lisinopril 20 1 tab PO DAILY 09/15/21 11/15/21 History mg-hydrochlorothiazide 25 mg tablet loratadine 10 mg tablet (Claritin) 10 mg PO DAILY 09/15/21 11/15/21 History omeprazole 20 mg capsule,delayed 20 mg PO DAILY 09/15/21 11/15/21 History release metformin 1,000 mg tablet 1,000 mg PO BID #0 tab 09/22/21 11/15/21 Rx insulin glargine 100 unit/mL (3 15 unit SC HS 11/15/21 11/15/21 History mL) subcutaneous pen (Lantus Solostar U-100 Insulin) Past Med/Surg History Medical History Anemia DM2 (diabetes mellitus, type 2) Dyslipidemia GERD (gastroesophageal reflux disease) History of amputation of left great toe HTN (hypertension) Obesity Seasonal allergies Surgical History History of toe surgery Family History Other Cancer Coronary heart disease Social History Smoking Status: Never smoker Hx Alcohol Use: Yes Hx Substance Use: No Preferred Language: Japanese Communication Ability: Effective Lot Porter Required: No Beliefs That Will Affect Care: None Current Living Situation: Spouse Feels Safe at Home: Yes Assistive Devices: Walker Review of Systems Review of Systems: All systems reviewed & are unremarkable except as noted in HPI & below Physical Exam Physical Exam: General: no distress, obese Head: normocephalic, atraumatic Eyes: conjunctiva non-injected, anicteric ENT: normal inspection external ears, nose, mucous membranes moist Neck: supple, trachea midline Lungs: clear, no respiratory distress, no wheezing/rhonchi/rales CV: +tachycardia, rate 104, regular rhythm, no murmur Abd: normal BS, soft, non-tender Ext: no cyanosis; +varicosities BLE. LLE: +edema, erythema and warmth to left lower leg, some red streaking noted anterior thigh, left 2nd toe with erythema, sensation to light touch intact, distal pulses intact Neuro: A&O x 3, no focal deficits noted, normal affect Skin: warm, dry Results & Data Results & Data ([facility]) Vital Signs (Past 12 Hours) Vital Signs Temp Pulse Pulse Resp BP BP Pulse Ox 11/15/21 16:20 105 H 18 123/77 98 11/15/21 11:27 36.7 C 105 H 20 96/61 L 96 Laboratory Results Short CBC 11/15/21 Range/Units 11:37 WBC 17.22 H (4.8-10.8) K/uL Hgb 12.7 L (14.0-18.0) g/dL Hct 37.3 L (42-52) % Plt Count 190 (130-400) K/uL BMP 11/15/21 11:37 Sodium 128 L Potassium 3.4 L Chloride 97 L Carbon Dioxide 23 BUN 17 Creatinine 1.23 Glucose 193 H Calcium 9.0 Liver Function 11/15/21 Range/Units 11:37 Total Bilirubin 0.6 (0.2-1) mg/dl AST 28 (15-37) U/L ALT 38 (12-78) Alkaline Phosphatase 71 (45-117) U/L Albumin 3.3 L (3.4-5.0) gm/dl Diagnostic Findings Foot X-Ray 11/15/21 15:32 XR foot LT min 3V routine CLINICAL HISTORY: toe pain TECHNIQUE: 3 views of the left foot were obtained. Comparison: Comparison is made to left foot radiographs 09/15/2021 FINDINGS: There is interval amputation of the first digit. The alignment is anatomic. The joint spaces are well preserved. No soft tissue abnormality is identified. IMPRESSION: No evidence of acute bony injury. ACT 112: Negative or not required by law. Electronically signed by: Silver Driver M.D. 11/15/2021 4:05 PM Venous Doppler Study 11/15/21 17:10 LEFT LOWER EXTREMITY VENOUS DOPPLER HISTORY: Acute pain and swelling of the left lower leg r/o dvt COMPARISON STUDY: Doppler study 09/15/2021 FINDINGS: There is normal compressibility, flow, and augmentation within the left lower extremity deep venous system. Lower extremity varicosities are noted. No evidence of superficial venous thrombus. Subcutaneous edema. IMPRESSION: No DVT within the left lower extremity. ACT 112: Negative or not required by law. Electronically signed by: Aniceto Cesar M.D. 11/15/2021 6:38 PM Supervising Physician Co-Signing Physician Notes Patient is a 61-year-old male with history of diabetes mellitus, hypertension, and other medical problems presents with history of left leg/toe erythema which is gradually been worsening since 1 week duration. He admits to clipping his toenail resulting in clipping his skin and bleeding. He denies any significant pain. Admits to having fever last night. Please review HPI for complete details of presentation. His blood pressure is relatively low while in ED and is mildly tachycardic. White blood cell count elevated at 17 K. Hyponatremia 128, hypochloremia 97, hypokalemia 3.4 noted. Left foot x-ray showed no evidence of acute bony injury. On exam patient is an obese, no apparent distress, normocephalic atraumatic, EOMI, normal breath sounds, clear to auscultation, S1-S2, no murmur, tachycardic, abdomen soft, nontender, normal bowel sounds, alert, awake, oriented, grossly no focal deficits, left lower extremity erythema, swelling, warmth to touch, left second toe erythematous. Patient is admitted for management of left lower extremity cellulitis rule out osteomyelitis. Agree with checking foot MRI. Consult orthopedics if MRI suggestive of osteomyelitis. Will start on vancomycin, Zosyn. IV fluids. Blood cultures. Electrolyte changes likely secondary to diuretics. Hold antihypertensives, diuretics for now. Replace electrolytes as needed. I personally reviewed the record. Patient is interviewed and examined at bedside. Patient's care is coordinated with Milean York PA-C. Please refer to the documentation above for details of patient's presentation and for discussion of other issues.
[2021-11-15] MEDS ORDERED: POTASSIUM CHLORIDE CRTAB 20 MEQ TABCR PO STA (16:39)
[2021-11-15] MEDS ORDERED: CONSULT PHARMACY STA (17:10)
[2021-11-15] MEDS ORDERED: SODIUM CHLORIDE 0.9% 1000ML 500 ML IV ONE (17:11)
--- NOTE | 2021-11-15 18:39 | Ultrasound Report ---
LEFT LOWER EXTREMITY VENOUS DOPPLER HISTORY: Acute pain and swelling of the left lower leg r/o dvt COMPARISON STUDY: Doppler study 09/15/2021 FINDINGS: There is normal compressibility, flow, and augmentation within the left lower extremity elizabeth p venous system. Lower extremity varicosities are noted. No evidence of superficial venous thrombus. Subcutaneous edema. IMPRESSION: No DVT within the left lower extremity. ACT 112: Negative or not required by law. Electronically signed by: Aniceto Cesar M.D. 11/15/2021 6:38 PM
[2021-11-15] MEDS ORDERED: SODIUM CHLORIDE 0.9% 1000ML 1,000 ML IV ONE (19:10)
[2021-11-15] MEDS ORDERED: PIPERACILL/TAZOBAC CONSULT ACTIVE PRN (19:37)
[2021-11-15] MEDS ORDERED: PIPERACILLIN/TAZOBACTAM 4.5 GM/120 ML BAG IV STA (19:38)
[2021-11-15] MEDS ORDERED: GLUCAGON FOR INJ 1 MG VIAL SQ PRN (22:40)
[2021-11-15] MEDS ORDERED: GLUCOSE 40% GEL 15 GM TUBE PO PRN (22:40)
[2021-11-15] MEDS ORDERED: POLYETHYLENE (MIRALAX) 17 GM PACK PO PRN (22:40)
[2021-11-15] MEDS ORDERED: ONDANSETRON INJ 2 MG/ML 2 ML VIAL IV PRN (22:40)
[2021-11-15] MEDS ORDERED: CARBOHYDRATES FOR HYPOGLYCEMIA PO PRN (22:40)
[2021-11-15] MEDS ORDERED: DEXTROSE 50% 50 ML SYRINGE IV PRN (22:40)
[2021-11-15] MEDS ORDERED: GLUCOSE 10 TABS/TUBE PO PRN (22:40)
[2021-11-15] MEDS ORDERED: MAGNESIUM HYDROXIDE SUSP 30 ML UDC PO PRN (22:40)
[2021-11-15] MEDS: SODIUM CHLORIDE 0.9% 1000ML 1,000 ML IV SCH (22:57)
[2021-11-16] MEDS: INSULIN ASPART PER UNIT SC SCH ×6 (00:06→21:10)
[2021-11-16] MEDS: INSULIN GLARGINE SOLOSTAR 100 UNITS/ML 3 ML PEN SC SCH ×4 (00:06→21:09)
[2021-11-16] MEDS: HEPARIN SOD 5,000 UNIT/0.5 ML VIAL SQ SCH ×4 (00:07→23:25)
[2021-11-16] MEDS: ACETAMINOPHEN 325 MG TAB PO PRN ×2 (00:11→08:29)
[2021-11-16] MEDS: PIPERACILLIN/TAZOBACTAM 4.5 GM in DEXTROSE 5% 100 ML IV SCH ×3 (03:45→19:47)
[2021-11-16] MEDS: VANCOMYCIN HCL 1,250 MG in SODIUM CHLORIDE 0.9% 250 ML IV SCH ×2 (03:45→16:21)
[2021-11-16 06:27] LABS: Basophils # (auto) 0.02 K/uL (0-0.2); Basophils % (auto) 0.3 %; Eosinophils # (auto) 0.02 K/uL (0-0.5); Eosinophils % (auto) 0.3 %; Hematocrit (blood only) 33.2 % (42-52); Hemoglobin 11.7 g/dL (14.0-18.0); Immature Granulocytes # (auto) 0.02 K/uL (0.00-0.02); Immature Granulocytes % (auto) 0.3 %; Lymphocytes % (auto) 15.1 %; Mean Corpuscular Hemoglobin 33.3 pg (25-34); Mean Corpuscular Hgb Conc 35.2 g/dL (32-36); Mean Corpuscular Volume 94.6 fL (80-100); Mean Platelet Volume 10.3 fL (7.4-10.4); Monocytes # (auto) 0.62 K/uL (0.11-0.59); Monocytes % (auto) 7.8 %; Neutrophils # (auto) 6.06 K/uL (1.4-6.5); Neutrophils % (auto) 76.2 %; Platelet Count 150 K/uL (130-400); RDW Coefficient of Variation 12.8 % (11.5-14.5); RDW Standard Deviation 44.4 fL (36.4-46.3); Red Blood Count 3.51 M/uL (4.7-6.1); White Blood Count 7.94 K/uL (4.8-10.8)
[2021-11-16] MEDS: SODIUM CHLORIDE 0.9% 1000ML 1,000 ML IV SCH (07:07)
[2021-11-16 07:08] LABS: BUN Creatinine Ratio 12.6 (10-20); Calcium 8.7 mg/dl (8.5-10.1); Creatinine Clr Calc Pharmacy 110.6 ml/min; Est GFR (African American) 100.3 ml/min; Est GFR (Non-African American) 86.5 ml/min; Potassium 3.3 mmol/L (3.5-5.1)
--- NOTE | 2021-11-16 07:30 | Magnetic Resonance Report ---
MR foot LT w/o con CLINICAL HISTORY: Diabetic. Status post amputation of the great toe on August 2021 swelling and dani n of the second toe. Evaluate for osteomyelitis. COMPARISON: Standard radiographs from 11/15/2021 and previous MRI of the left foot from 09/16/2021 TECHNIQUE: Multiplanar multisequence images of the distal left foot foot were performed without cont rast. FINDINGS: Osseous structures: The patient is status post interval amputation of the proximal distal phalanges o f the great toe. Compared to the previous examination, there has been interval development of marrow edema involving the mid and distal phalanges of the second toe. The findings are characteristic of ea rly osteomyelitis. No definite cortical destruction is identified. Essentially homogeneous marrow signal is seen throughout the remaining imaged bones of the foot. Ther e is no other evidence for marrow edema or marrow replacement. No evidence for fracture is identified . Joints: There is mild to moderate narrowing of the MTP joints. No joint effusions are seen. The remai alex imaged joints of the foot are intact. Tendons: The extensor tendons along the dorsum of the foot and the flexor tendons along the plantar a spect of the foot are intact. Ligaments: The imaged ligaments of the foot are intact. Soft tissues: There is diffuse soft tissue swelling present of the second toe with findings character istic of cellulitis. No focal fluid collections are identified with no evidence for abscess. Subcutan eous edema extends along the dorsum of the foot as well. IMPRESSION: 1. Status post interval amputation of the proximal and distal phalanges of the great toe. 2. Interval development of mild diffuse marrow edema involving the middle and distal phalanges of the second toe characteristic of early osteomyelitis. 3. There is diffuse soft tissue swelling second toe representing the presence of cellulitis. No focal abscess is identified. 4. There is also subcutaneous edema along the dorsum of the foot. ACT 112: Negative or not required by law. Electronically signed by: Eitan Wallace M.D. 11/16/2021 7:29 AM
[2021-11-16] MEDS ORDERED: POTASSIUM CHLORIDE CRTAB 20 MEQ TABCR PO STA (08:03)
[2021-11-16] MEDS: LORATADINE 10 MG TAB PO SCH (08:12)
[2021-11-16] MEDS: ASPIRIN 81 MG ECTAB PO SCH (08:13)
[2021-11-16] MEDS: PANTOprazole 40 MG TAB PO SCH (08:13)
[2021-11-16] MEDS: MULTIVITAMIN TAB PO SCH (08:14)
--- NOTE | 2021-11-16 08:41 | Pharmacy Report ---
Pharmacy Vanc AUC Short Note - Date of Service November 16, 2021 - Assessment & Plan Assessment 61 year old M admitted with cellulitis of toe. History of left great toe amputation secondary to osteomyelitis 09/14/2021. Foot MRI with signs of early osteomyelitis. Vancomycin and zosyn ordered on admission. Blood cultures pending Plan Vancomycin * AUC/GEMMA is the preferred PK/PD target for vancomycin * AUC guided dosing is effective and associated with decreased risk of nephrotoxicity compared to traditional trough targets * Given loading dose of vancomycin 2500 mg x 1 (~20 mg/kg/dose). Then started on maintenance dose of vancomycin 1250 mg iv q 12 hrs * This dosing is estimated to produce a trough level of 16 mcg/mL is predicted to achieve target AUC/GEMMA of 400-600 mg/L.hr and may be associated with a 11% risk of nephrotoxicity * Level ordered before the 0400 dose tomorrow to assess dosing Pharmacy will continue to follow and will adjust dose/frequency as necessary. Thank you.
--- NOTE | 2021-11-16 11:29 | Orthopedic Consultation ---
Date of Consultation November 16, 2021 Assessment & Plan (1) Cellulitis of second toe, left: Left second toe cellulitis with early stages of osteomyelitis of the distal and proximal phalanges. Small open ulceration distal tip left second toe. Continue IV vancomycin at this time. I will discuss the case with [facility] physician who will be here today. Question will be whether his distal toe ulceration needs debridement at the bedside versus the OR. It does not appear to be that extensive and there were no signs of abscess on MRI. With his osteomyelitis, he will likely need 6 weeks of IV antibiotics. Continue Aquacel Ag dressings for now. Further input later today concerning questionable need for I&D of the second toe. History of Present Illness Reason for Consultation: Left second toe cellulitis/osteomyelitis Attending Physician: Mauricio Todd MD History of Present Illness Patient is a 61-year-old male with PMH DM II, HTN, HLD, fatty liver, alcohol use presented to ER with complaint of left second toe redness x 1 week. Patient is known to our practice and is status post amputation of the left distal and proximal phalanges of the great toe in August of this year. Patient states that he was clipping his toenails approximately 2 weeks ago. He apparently got too close to the distal tip of his toe and accidentally cut his skin a little bit. Approximately 1 week ago he began noticing erythema of the second toe. This continued to worsen with a little bit of erythema going up his lower extremity. He had a fever just prior to admission at home. Does not overtly say that he had much in the way of drainage from the toe. MRI was ordered and it showed likely early osteomyelitis of the distal/proximal phalanges of the second toe. We have been asked to see him for his left second toe cellulitis/osteomyelitis. Allergies Allergy/AdvReac Type Severity Reaction Status Date / Time No Known Allergies Allergy Unknown Verified 11/15/21 15:43 Home Medications Medication Instructions Recorded Confirmed Type multivitamin 1 tab PO DAILY #0 10/18/07 11/15/21 History acetaminophen 500 mg tablet 1,000 mg PO DAILY 09/15/21 11/15/21 History aspirin 81 mg tablet,delayed 81 mg PO DAILY 09/15/21 11/15/21 History release lisinopril 20 1 tab PO DAILY 09/15/21 11/15/21 History mg-hydrochlorothiazide 25 mg tablet loratadine 10 mg tablet (Claritin) 10 mg PO DAILY 09/15/21 11/15/21 History omeprazole 20 mg capsule,delayed 20 mg PO DAILY 09/15/21 11/15/21 History release metformin 1,000 mg tablet 1,000 mg PO BID #0 tab 09/22/21 11/15/21 Rx insulin glargine 100 unit/mL (3 15 unit SC HS 11/15/21 11/15/21 History mL) subcutaneous pen (Lantus Solostar U-100 Insulin) Patient History Medical History Anemia DM2 (diabetes mellitus, type 2) Dyslipidemia GERD (gastroesophageal reflux disease) History of amputation of left great toe HTN (hypertension) Obesity Seasonal allergies Surgical History History of toe surgery Family History Other Cancer Coronary heart disease Social History Smoking Status: Former smoker Second Hand Exposure: No; Hx Alcohol Use: Yes Alcohol type: wine Hx Substance Use: No Preferred Language: Divehi Communication Ability: Effective Parachute Cushion Installer Required: No Beliefs That Will Affect Care: None Current Living Situation: Spouse Other Information That Helps Us Care for You: No Feels Safe at Home: Yes Safety Concerns: Feels Safe At This Time Assistive Devices: Glasses Physical Exam Physical Exam: Patient is a 61-year-old obese white male, alert and oriented x3, no acute distress, pleasant cooperative. On examination of his left foot, he has a noted cellulitis of his left great toe. He has some mild erythema noted along the lower extremity and some excoriations on the skin. Most of the cellulitis is enveloped around the second toe. He has 1 small open area on the distal tip of his toe just underneath his toenail. He has some yellow slough around the edges. On palpation of the toe, I cannot express any purulence from this area. 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 Dorsalis pedis pulse palpable. The distal tip of the left second toe was cleansed with sterile saline as well as a Betadine swab. This was let the dry. With the use of sterile iris scissors and Adson forceps given to me by the wound care team, I debrided the slough around the edges. The distal tip of the phalanx is felt but is covered with tissue. Tissue underneath the tip of the phalanx appears grayish to light james. I am able to trim just a slight amount of this. A wound culture was then taken of this area underneath the distal tip of the phalanx. The wound was cleansed 1 more time with sterile saline wipes and a Aquacel Ag dressing was applied by wound care team. Results & Data ([facility]) Vital Signs (Past 12 Hours) Vital Signs Temp Pulse Pulse Resp BP Pulse Ox 11/16/21 11:17 37.0 C 84 18 114/67 96 11/16/21 07:44 90 11/16/21 07:10 37.5 C 89 20 115/71 97 11/16/21 04:02 36.9 C 81 18 107/64 98 11/16/21 00:01 101 H Diagnostic Findings Laboratory Results WBC 7.94 K/uL (4.8-10.8) 11/16/21 06:02 RBC 3.51 M/uL (4.7-6.1) L 11/16/21 06:02 Hgb 11.7 g/dL (14.0-18.0) L 11/16/21 06:02 Hct 33.2 % (42-52) L 11/16/21 06:02 MCV 94.6 fL (80-100) 11/16/21 06:02 MCH 33.3 pg (25-34) 11/16/21 06:02 MCHC 35.2 g/dL (32-36) 11/16/21 06:02 RDW Std Deviation 44.4 fL (36.4-46.3) 11/16/21 06:02 RDW Coeff of Tavares 12.8 % (11.5-14.5) 11/16/21 06:02 Plt Count 150 K/uL (130-400) 11/16/21 06:02 MPV 10.3 fL (7.4-10.4) 11/16/21 06:02 Immature Gran % (Auto) 0.3 % 11/16/21 06:02 Neut % (Auto) 76.2 % 11/16/21 06:02 Lymph % (Auto) 15.1 % 11/16/21 06:02 Vance % (Auto) 7.8 % 11/16/21 06:02 Eos % (Auto) 0.3 % 11/16/21 06:02 Baso % (Auto) 0.3 % 11/16/21 06:02 Neut # (Auto) 6.06 K/uL (1.4-6.5) 11/16/21 06:02 Lymph # (Auto) 1.20 K/uL (1.2-3.4) 11/16/21 06:02 Vance # (Auto) 0.62 K/uL (0.11-0.59) H 11/16/21 06:02 Eos # (Auto) 0.02 K/uL (0-0.5) 11/16/21 06:02 Baso # (Auto) 0.02 K/uL (0-0.2) 11/16/21 06:02 Immature Gran # (Auto) 0.02 K/uL (0.00-0.02) 11/16/21 06:02 Sodium 132 mmol/L (136-145) L 11/16/21 06:02 Potassium 3.3 mmol/L (3.5-5.1) L 11/16/21 06:02 Chloride 99 mmol/L (98-107) 11/16/21 06:02 Carbon Dioxide 28 mmol/L (21-32) 11/16/21 06:02 Anion Gap 5.0 (3-11) 11/16/21 06:02 BUN 12 mg/dl (7-18) 11/16/21 06:02 Creatinine 0.94 mg/dl (0.6-1.4) 11/16/21 06:02 Est Cr Clr Drug Dosing 110.6 ml/min 11/16/21 06:02 Est GFR ( Amer) 100.3 ml/min 11/16/21 06:02 Est GFR (Non-Af Amer) 86.5 ml/min 11/16/21 06:02 BUN/Creatinine Ratio 12.6 (10-20) 11/16/21 06:02 Glucose 123 mg/dl (70-99) H 11/16/21 06:02 POC Glucose 178 mg/dl (70-99) H 11/16/21 11:30 Osmolality 277 mOsm/kg (280-300) L 11/15/21 16:24 Lactate 1.7 mmol/L (0.4-2.0) 11/15/21 17:13 Calcium 8.7 mg/dl (8.5-10.1) 11/16/21 06:02 Total Bilirubin 0.6 mg/dl (0.2-1) 11/15/21 11:37 AST 28 U/L (15-37) 11/15/21 11:37 ALT 38 (12-78) 11/15/21 11:37 Alkaline Phosphatase 71 U/L (45-117) 11/15/21 11:37 Total Protein 7.6 gm/dl (6.4-8.2) 11/15/21 11:37 Albumin 3.3 gm/dl (3.4-5.0) L 11/15/21 11:37 Globulin 4.3 gm/dl (2.5-4.0) H 11/15/21 11:37 Albumin/Globulin Ratio 0.8 (0.9-2) L 11/15/21 11:37 Urine Osmolality 446 mOsm/kg (500-800) L 11/16/21 07:10 Ur Random Sodium 57 mmol/L 11/16/21 07:10 SARS-CoV-2, RNA, NAAT NEGATIVE (NEGATIVE) 11/15/21 16:15 Impressions Foot X-Ray 11/15/21 15:32 XR foot LT min 3V routine CLINICAL HISTORY: toe pain TECHNIQUE: 3 views of the left foot were obtained. Comparison: Comparison is made to left foot radiographs 09/15/2021 FINDINGS: There is interval amputation of the first digit. The alignment is anatomic. The joint spaces are well preserved. No soft tissue abnormality is identified. IMPRESSION: No evidence of acute bony injury. ACT 112: Negative or not required by law. Electronically signed by: Silver Driver M.D. 11/15/2021 4:05 PM Venous Doppler Study 11/15/21 17:10 LEFT LOWER EXTREMITY VENOUS DOPPLER HISTORY: Acute pain and swelling of the left lower leg r/o dvt COMPARISON STUDY: Doppler study 09/15/2021 FINDINGS: There is normal compressibility, flow, and augmentation within the left lower extremity deep venous system. Lower extremity varicosities are noted. No evidence of superficial venous thrombus. Subcutaneous edema. IMPRESSION: No DVT within the left lower extremity. ACT 112: Negative or not required by law. Electronically signed by: Aniceto Cesar M.D. 11/15/2021 6:38 PM Foot MRI 11/15/21 17:20 MR foot LT w/o con CLINICAL HISTORY: Diabetic. Status post amputation of the great toe on August 2021 swelling and pain of the second toe. Evaluate for osteomyelitis. COMPARISON: Standard radiographs from 11/15/2021 and previous MRI of the left foot from 09/16/2021 TECHNIQUE: Multiplanar multisequence images of the distal left foot foot were performed without contrast. FINDINGS: Osseous structures: The patient is status post interval amputation of the proximal distal phalanges of the great toe. Compared to the previous examination, there has been interval development of marrow edema involving the mid and distal phalanges of the second toe. The findings are characteristic of early osteomyelitis. No definite cortical destruction is identified. Essentially homogeneous marrow signal is seen throughout the remaining imaged bones of the foot. There is no other evidence for marrow edema or marrow replacement. No evidence for fracture is identified. Joints: There is mild to moderate narrowing of the MTP joints. No joint effusions are seen. The remaining imaged joints of the foot are intact. Tendons: The extensor tendons along the dorsum of the foot and the flexor tendons along the plantar aspect of the foot are intact. Ligaments: The imaged ligaments of the foot are intact. Soft tissues: There is diffuse soft tissue swelling present of the second toe with findings characteristic of cellulitis. No focal fluid collections are identified with no evidence for abscess. Subcutaneous edema extends along the dorsum of the foot as well. IMPRESSION: 1. Status post interval amputation of the proximal and distal phalanges of the great toe. 2. Interval development of mild diffuse marrow edema involving the middle and d istal phalanges of the second toe characteristic of early osteomyelitis. 3. There is diffuse soft tissue swelling second toe representing the presence of cellulitis. No focal abscess is identified. 4. There is also subcutaneous edema along the dorsum of the foot. ACT 112: Negative or not required by law. Electronically signed by: Eitan Wallace M.D. 11/16/2021 7:29 AM
--- NOTE | 2021-11-16 16:34 | Hospitalist Progress Note ---
Date of Service November 16, 2021 Assessment & Plan (1) Osteomyelitis of second toe of left foot: Plan: He has been complaining of left second toe redness and ulceration for the last 1 week which is started following cutting the nail MRI of the left foot showed interval development of mild diffuse marrow edema involving the middle and distal phalanges of the second toe characteristic of early osteomyelitis The wound is clearly seen as in the picture Surrounding edema and redness involving the second toe Bruising and petechial hemorrhages involving the left lower extremity without any DVT Has been on intravenous vancomycin and Zosyn-awaiting culture Appreciate Ortho input and recommendation Bedside I&D has been performed The patient is preferring nonsurgical measures He wants to go home tomorrow (2) Cellulitis of second toe, left: Plan: Patient is a 61-year-old male with PMH DM II, HTN, HLD, fatty liver, alcohol use presented to ER with complaint of left second toe redness x 1 week followed by lower leg erythema after clipping toenails. Tactile fever last night. H/O left great toe amputation secondary to osteomyelitis on 09/20/2021. In ER pt afebrile, P: 105, R: 20, BP 96/61 up to 123/77, 96% on room air. WBC: 17. Left foot x-ray: No bony injury noted As above (3) Hyponatremia: Plan: Na: 129 corrected for glucose of 193 Serum and urine osmolality, urine sodium pending Hold HCTZ Sodium has been improving which is 132 as of 11/16/2021 (4) Hypokalemia: Plan: K: 3.4 Replace and monitor We will supplement more potassium and monitor (5) DM2 (diabetes mellitus, type 2): Plan: A1c: 10.6 on 09/15/21 Hold home meds Basal bolus insulin per protocol (6) HTN (hypertension): Plan: Hold lisinopril, HCTZ Monitor BP DVT Prophylaxis -Heparin SQ Full Code as per discussion with pt Follows with Dr Chon Garrido for routine care Admission and Anticipated Discharge Date Admission Date: November 15, 2021 Subjective 11/16/2021 The patient was seen and examined in medical telemetry unit He has been complaining of left second toe redness and ulceration for the last 1 week which is started following cutting the nail Condition has gotten worse for the last 2 days but no fever and no chills Denies any other symptoms during my examination Review of Systems Review of Systems: All systems reviewed and are unremarkable except as noted below Physical Exam Physical Exam: Lying in bed comfortably Constitutional: well developed, well nourished and + obese; not ill appearing Eyes: PERRL, conjunctivae normal, anicteric sclerae ENMT: external ear and nose normal, oropharynx normal Neck: trachea midline, no thyromegaly Respiratory: no respiratory distress Auscultation: lungs clear to auscultation bilaterally Cardiovascular: Rate/Rhythm: regular rate and regular rhythm; not tachycardic Heart Sounds: normal S1 and normal S2; no murmur Extremities: no edema Gastrointestinal (Abdomen): Inspection/Auscultation: + abdomen distended and normal bowel sounds Percussion/Palpation: abdomen soft; abdomen nontender Musculoskeletal: Extremities: + petechiae (Petechiae and bruising involving the left lower extremity mainly the leg) Neurologic: Alert, awake and oriented x3. No focal sensory and motor deficit appreciated Psychiatric: A+Ox3, euthymic affect Lymphatic: no cervical or axillary lymphadenopathy Results & Data Results & Data ([facility]) Vital Signs (Past 12 Hours) Vital Signs Temp Pulse Pulse Resp BP Pulse Ox 11/16/21 15:12 86 11/16/21 11:17 37.0 C 84 18 114/67 96 11/16/21 07:44 90 11/16/21 07:10 37.5 C 89 20 115/71 97 Laboratory Results Short CBC 11/16/21 Range/Units 06:02 WBC 7.94 (4.8-10.8) K/uL Hgb 11.7 L (14.0-18.0) g/dL Hct 33.2 L (42-52) % Plt Count 150 (130-400) K/uL BMP 11/16/21 06:02 Sodium 132 L Potassium 3.3 L Chloride 99 Carbon Dioxide 28 BUN 12 Creatinine 0.94 Glucose 123 H Calcium 8.7 Medications Administered Current Inpatient Medications Acetaminophen (Acetaminophen 325 Mg Tab) 650 mg PO Q4H PRN PRN Reason: Pain or Fever Stop: 12/15/21 22:39 Last Admin: 11/16/21 08:29 Dose: 650 mg Documented by: Aspirin (Aspirin 81 Mg Ectab) 81 mg PO DAILY [facility] Stop: 12/16/21 08:59 Last Admin: 11/16/21 08:13 Dose: 81 mg Documented by: Dextrose (Dextrose 50% 50 Ml Syringe) 25 - 50 ml IV UD PRN; Protocol PRN Reason: Hypoglycemia Protocol Stop: 12/15/21 22:39 Glucagon (Glucagon For Inj 1 Mg Vial) 1 mg SQ UD PRN; Protocol PRN Reason: Hypoglycemia Protocol Stop: 12/15/21 22:39 Glucose (Glucose 10 Tabs/Tube) 4 - 8 tabs PO UD PRN; Protocol PRN Reason: Hypoglycemia Protocol Stop: 12/15/21 22:39 Glucose (Glucose 40% Gel 15 Gm Tube) 15 - 30 gm PO UD PRN; Protocol PRN Reason: Hypoglycemia Protocol Stop: 12/15/21 22:39 Heparin Sodium (Porcine) (Heparin Sod 5,000 Unit/0.5 Ml Vial) 5,000 units SQ Q8H [facility] Stop: 12/16/21 00:00 Last Admin: 11/16/21 16:22 Dose: 5,000 units Documented by: Vancomycin HCl 1,250 mg/ (Sodium Chloride) 275 mls @ 200 mls/hr IV Q12H [facility] Stop: 11/23/21 03:59 Last Admin: 11/16/21 16:21 Dose: 200 mls/hr Documented by: Piperacillin Sod/Tazobactam (Sod 4.5 gm/ Dextrose) 120 mls @ 30 mls/hr IV Q8H [facility]; Protocol Stop: 11/23/21 03:59 Last Infusion: 11/16/21 16:21 Dose: Infused Documented by: Insulin Aspart (Insulin Aspart Per Unit) 0 units SC ACHS [facility] Stop: 12/16/21 00:00 Last Admin: 11/16/21 12:12 Dose: 4 units Documented by: Insulin Glargine (Insulin Glargine Solostar 100 Units/Ml 3 Ml Pen) 0 - 8 units SC BID [facility] Stop: 12/16/21 00:00 Last Admin: 11/16/21 08:15 Dose: 4 units Documented by: Loratadine (Loratadine 10 Mg Tab) 10 mg PO DAILY [facility] Stop: 12/16/21 08:59 Last Admin: 11/16/21 08:12 Dose: 10 mg Documented by: Magnesium Hydroxide (Magnesium Hydroxide Susp 30 Ml Udc) 30 ml PO Q12H PRN PRN Reason: Constipation Stop: 12/15/21 22:39 Miscellaneous (Carbohydrates For Hypoglycemia ) 15 - 30 gm PO UD PRN PRN Reason: Hypoglycemia Protocol Stop: 12/15/21 22:39 Miscellaneous Information (Vancomycin Consult Active) 1 ea N/A UD PRN PRN Reason: Consult Stop: 12/15/21 19:36 Miscellaneous Information (Piperacill/Tazobac Consult Active) 1 ea N/A UD PRN PRN Reason: Consult Stop: 12/15/21 19:36 Multivitamins (Multivitamin Tab) 1 tab PO DAILY [facility] Stop: 12/16/21 08:59 Last Admin: 11/16/21 08:14 Dose: 1 tab Documented by: Ondansetron HCl (Ondansetron Inj 2 Mg/Ml 2 Ml Vial) 4 mg IV Q6H PRN PRN Reason: Nausea Stop: 12/15/21 22:39 Pantoprazole Sodium (Pantoprazole 40 Mg Tab) 40 mg PO DAILY [facility] Stop: 12/16/21 08:59 Last Admin: 11/16/21 08:13 Dose: 40 mg Documented by: Polyethylene Glycol (Polyethylene (Miralax) 17 Gm Pack) 17 gm PO DAILY PRN PRN Reason: Constipation Stop: 12/15/21 22:39
[2021-11-17 03:26] LABS: Basophils # (auto) 0.01 K/uL (0-0.2); Basophils % (auto) 0.2 %; Eosinophils # (auto) 0.05 K/uL (0-0.5); Eosinophils % (auto) 0.9 %; Hematocrit (blood only) 33.4 % (42-52); Hemoglobin 11.4 g/dL (14.0-18.0); Immature Granulocytes # (auto) 0.01 K/uL (0.00-0.02); Immature Granulocytes % (auto) 0.2 %; Lymphocytes # (auto) 1.35 K/uL (1.2-3.4); Lymphocytes % (auto) 25.2 %; Mean Corpuscular Hemoglobin 32.1 pg (25-34); Mean Corpuscular Hgb Conc 34.1 g/dL (32-36); Mean Corpuscular Volume 94.1 fL (80-100); Mean Platelet Volume 9.8 fL (7.4-10.4); Monocytes # (auto) 0.54 K/uL (0.11-0.59); Monocytes % (auto) 10.1 %; Neutrophils # (auto) 3.39 K/uL (1.4-6.5); Neutrophils % (auto) 63.4 %; Platelet Count 151 K/uL (130-400); RDW Coefficient of Variation 12.7 % (11.5-14.5); RDW Standard Deviation 44.2 fL (36.4-46.3); Red Blood Count 3.55 M/uL (4.7-6.1); White Blood Count 5.35 K/uL (4.8-10.8)
[2021-11-17] MEDS ORDERED: VANCOMYCIN TROUGH ONE (03:30)
[2021-11-17 03:44] LABS: Calcium 8.9 mg/dl (8.5-10.1); Creatinine Clr Calc Pharmacy 116.9 ml/min; Est GFR (African American) 106.2 ml/min; Est GFR (Non-African American) 91.6 ml/min; Potassium 3.5 mmol/L (3.5-5.1)
[2021-11-17] MEDS: VANCOMYCIN HCL 1,250 MG in SODIUM CHLORIDE 0.9% 250 ML IV SCH (04:08)
[2021-11-17] MEDS: PIPERACILLIN/TAZOBACTAM 4.5 GM in DEXTROSE 5% 100 ML IV SCH ×2 (04:11→11:42)
--- NOTE | 2021-11-17 09:06 | Pharmacy Report ---
Pharmacy Vanc AUC Short Note - Date of Service November 17, 2021 - Assessment & Plan Assessment 61 year old M receiving vancomycin/zosyn for early osteomyelitis (as seen on foot MRI). Ortho consulted and no surgical intervention at this time. Plan likely for PICC line IV antibiotics for osteo. Blood cultures are no growth. Awaiting toe culture. Plan Vancomycin * AUC/GEMMA is the preferred PK/PD target for vancomycin * AUC guided dosing is effective and associated with decreased risk of nephrotoxicity compared to traditional trough targets * Patient currently receiving vancomycin 1250 mg iv q 12 hrs - Trough level this morning came back at ~8 mcg/ml and associated with AUC ~350. Plan to increase dosing of vancomycin to target AUC 400-600 * Will increase to vancomycin 1250 mg iv q 8 hrs to achieve an estimated trough of ~16 mcg/ml and AUC of ~517. This dosing is associated with a toxicity of 12% * Plan to recheck vancomycin level 11/19 Pharmacy will continue to follow and will adjust dose/frequency as necessary. Thank you.
[2021-11-17] MEDS: HEPARIN SOD 5,000 UNIT/0.5 ML VIAL SQ SCH ×3 (09:23→21:00)
[2021-11-17] MEDS: ASPIRIN 81 MG ECTAB PO SCH (09:24)
[2021-11-17] MEDS: PANTOprazole 40 MG TAB PO SCH (09:25)
[2021-11-17] MEDS: MULTIVITAMIN TAB PO SCH (09:25)
[2021-11-17] MEDS: LORATADINE 10 MG TAB PO SCH (09:25)
[2021-11-17] MEDS: INSULIN GLARGINE SOLOSTAR 100 UNITS/ML 3 ML PEN SC SCH ×2 (09:25→20:57)
[2021-11-17] MEDS ORDERED: SODIUM CHLORIDE 0.65% NA SOLN 45 ML (OCEAN) ONE (09:33)
[2021-11-17] MEDS ORDERED: SODIUM CHLORIDE 0.65% NA SOLN 45 ML (OCEAN) PRN (09:43)
[2021-11-17] MEDS: INSULIN ASPART PER UNIT SC SCH ×4 (09:47→20:59)
--- NOTE | 2021-11-17 10:24 | Orthopedic Progress Note ---
Date of Service November 17, 2021 Assessment & Plan (1) Cellulitis of second toe, left: Plan: Left second toe cellulitis with early stages of osteomyelitis of the distal and proximal phalanges. Small open ulceration distal tip left second toe. Continue IV vancomycin at this time. I performed a bedside debridement of all of the necrotic tissue down to the bone including the tip of the bone. I did debride tissue back to bleeding tissue. Sterile gauze dressing was applied. Plan is to continue with dressing changes and IV antibiotics patient has a PICC line and going to do home IV antibiotics. Prognosis is guarded and will do better with toe amputation but patient wants to try to save the toe so we will continue with the conservative route for now and he will follow up with Dr. Vásquez as an outpatient for further treatment option discussion. Admission and Anticipated Discharge Date Admission Date: November 15, 2021 Subjective No complaints no pain feels swelling is coming down in toto Review of Systems Review of Systems: Noncontributory Physical Exam Physical Exam: Left second toe still has some swelling no major erythema has necrotic tissue extending down to the distal phalanx improvement in appearance of the wound but still some necrotic tissue. Results & Data ([facility]) Vital Signs (Past 12 Hours) Vital Signs Temp Pulse Pulse Resp BP Pulse Ox 11/17/21 08:00 37 C 78 18 129/75 98 11/17/21 07:42 81 11/17/21 03:27 36.9 C 80 18 132/78 99 11/16/21 23:19 37 C 79 18 125/79 93 11/16/21 22:23 92 H Laboratory Results White blood cell count normal
[2021-11-17] MEDS ORDERED: VANCOMYCIN HCL 1,250 MG in SODIUM CHLORIDE 0.9% 250 ML IV SCH (12:00)
[2021-11-17] MEDS ORDERED: cefTRIAXone SODIUM 2,000 MG in DEXTROSE 5% 50 ML IV SCH (12:30)
[2021-11-18 07:24] LABS: Hematocrit (blood only) 33.9 % (42-52); Hemoglobin 11.2 g/dL (14.0-18.0); Mean Corpuscular Hemoglobin 30.9 pg (25-34); Mean Corpuscular Volume 93.6 fL (80-100); Mean Platelet Volume 10.6 fL (7.4-10.4); Platelet Count 178 K/uL (130-400); RDW Coefficient of Variation 12.7 % (11.5-14.5); RDW Standard Deviation 43.6 fL (36.4-46.3); Red Blood Count 3.62 M/uL (4.7-6.1); White Blood Count 5.75 K/uL (4.8-10.8)
[2021-11-18 07:58] LABS: Creatinine Clr Calc Pharmacy 139.1 ml/min; Est GFR (African American) 114.6 ml/min; Est GFR (Non-African American) 98.9 ml/min
--- NOTE | 2021-11-18 08:37 | Orthopedic Progress Note ---
Date of Service November 18, 2021 Assessment & Plan (1) Osteomyelitis of second toe of left foot: Plan: 61 yo male with MRI confirmed osteo left 2nd toe 1. Med management- pt to get PICC line, cont IV abx upon d/c 2. DVT prophylaxis 3. D/C planning- d/c per medicine with home IV abx, ortho to sign off, f/u with Dr Vásquez 10-14 days, call [phone] for appt Admission and Anticipated Discharge Date Admission Date: November 17, 2021 Subjective Pt resting in bed, eating breakfast, no complaints, states he supposed to get PICC line shortly Physical Exam Physical Exam: Dressing left 2nd toe changed, no erythema or drainage, small ulceration tip of toe Results & Data ([facility]) Vital Signs (Past 12 Hours) Vital Signs Temp Pulse Pulse Resp BP Pulse Ox Pulse Ox 11/18/21 07:20 36.5 C 72 19 137/83 98 11/18/21 03:49 36.8 C 73 18 135/81 96 11/17/21 23:22 36.8 C 80 20 142/87 H 97 11/17/21 22:40 97 11/17/21 22:19 80 Laboratory Results 11/18/21 11/18/21 11/18/21 Range/Units 07:42 06:17 06:17 WBC 5.75 (4.8-10.8) K/uL RBC 3.62 L (4.7-6.1) M/uL Hgb 11.2 L (14.0-18.0) g/dL Hct 33.9 L (42-52) % MCV 93.6 (80-100) fL MCH 30.9 (25-34) pg MCHC 33.0 (32-36) g/dL RDW Std Deviation 43.6 (36.4-46.3) fL RDW Coeff of Tavares 12.7 (11.5-14.5) % Plt Count 178 (130-400) K/uL MPV 10.6 H (7.4-10.4) fL Creatinine 0.74 (0.6-1.4) mg/dl Est Cr Clr Drug Dosing 139.1 ml/min Est GFR ( Amer) 114.6 ml/min Est GFR (Non-Af Amer) 98.9 ml/min POC Glucose 106 H (70-99) mg/dl 11/17/21 11/17/21 11/17/21 Range/Units 20:10 17:01 11:36 WBC (4.8-10.8) K/uL RBC (4.7-6.1) M/uL Hgb (14.0-18.0) g/dL Hct (42-52) % MCV (80-100) fL MCH (25-34) pg MCHC (32-36) g/dL RDW Std Deviation (36.4-46.3) fL RDW Coeff of Tavares (11.5-14.5) % Plt Count (130-400) K/uL MPV (7.4-10.4) fL Creatinine (0.6-1.4) mg/dl Est Cr Clr Drug Dosing ml/min Est GFR ( Amer) ml/min Est GFR (Non-Af Amer) ml/min POC Glucose 149 H 146 H 148 H (70-99) mg/dl
[2021-11-18] MEDS: LORATADINE 10 MG TAB PO SCH (09:00)
[2021-11-18] MEDS: MULTIVITAMIN TAB PO SCH (09:00)
[2021-11-18] MEDS: HEPARIN SOD 5,000 UNIT/0.5 ML VIAL SQ SCH (09:00)
[2021-11-18] MEDS: ASPIRIN 81 MG ECTAB PO SCH (09:00)
[2021-11-18] MEDS ORDERED: cefTRIAXone SODIUM 2,000 MG in DEXTROSE 5% 50 ML IV SCH (09:00)
[2021-11-18] MEDS: PANTOprazole 40 MG TAB PO SCH (09:00)
[2021-11-18] MEDS: INSULIN GLARGINE SOLOSTAR 100 UNITS/ML 3 ML PEN SC SCH (09:03)
[2021-11-18] MEDS: INSULIN ASPART PER UNIT SC SCH (09:12)
--- NOTE | 2021-11-18 10:15 | Hospitalist Progress Note ---
Date of Service November 18, 2021 This is a bill for 11/17/2021-let documentation Assessment & Plan (1) Osteomyelitis of second toe of left foot: Plan: He has been complaining of left second toe redness and ulceration for the last 1 week which is started following cutting the nail MRI of the left foot showed interval development of mild diffuse marrow edema involving the middle and distal phalanges of the second toe characteristic of early osteomyelitis The wound is clearly seen as in the picture Surrounding edema and redness involving the second toe Bruising and petechial hemorrhages involving the left lower extremity without any DVT Has been on intravenous vancomycin and Zosyn-awaiting culture Appreciate Ortho input and recommendation Bedside I&D has been performed The patient is preferring nonsurgical measures He will have PICC line placement today and probable discharge tomorrow (2) Cellulitis of second toe, left: Plan: Patient is a 61-year-old male with PMH DM II, HTN, HLD, fatty liver, alcohol use presented to ER with complaint of left second toe redness x 1 week followed by lower leg erythema after clipping toenails. Tactile fever last night. H/O left great toe amputation secondary to osteomyelitis on 09/20/2021. In ER pt afebrile, P: 105, R: 20, BP 96/61 up to 123/77, 96% on room air. WBC: 17. Left foot x-ray: No bony injury noted Has had IND by orthopedic surgeon Advised to continue dressing as per recommendation from the Ortho (3) Hyponatremia: Plan: Na: 129 corrected for glucose of 193 Serum and urine osmolality, urine sodium pending Hold HCTZ Sodium has been improving which is 132 as of 11/16/2021 (4) Hypokalemia: Plan: K: 3.4 Replace and monitor We will supplement more potassium and monitor (5) DM2 (diabetes mellitus, type 2): Plan: A1c: 10.6 on 09/15/21 Hold home meds Basal bolus insulin per protocol (6) HTN (hypertension): Plan: Hold lisinopril, HCTZ Monitor BP DVT Prophylaxis -Heparin SQ Full Code as per discussion with pt Follows with Dr Chon Garrido for routine care Admission and Anticipated Discharge Date Admission Date: November 17, 2021 Subjective 11/16/2021 The patient was seen and examined in medical telemetry unit He has been complaining of left second toe redness and ulceration for the last 1 week which is started following cutting the nail Condition has gotten worse for the last 2 days but no fever and no chills Denies any other symptoms during my examination 11/17/2021 The patient was seen and examined in medical telemetry unit He has been feeling much better denies any symptoms Review of Systems Review of Systems: All systems reviewed and are unremarkable except as noted below Physical Exam Constitutional: well developed, well nourished and + obese; not ill appearing Eyes: PERRL, conjunctivae normal, anicteric sclerae ENMT: external ear and nose normal, oropharynx normal Neck: trachea midline, no thyromegaly Respiratory: no respiratory distress Auscultation: lungs clear to auscultation bilaterally Cardiovascular: Rate/Rhythm: regular rate and regular rhythm; not tachycardic Heart Sounds: normal S1 and normal S2; no murmur Extremities: no edema Gastrointestinal (Abdomen): Inspection/Auscultation: + abdomen distended and normal bowel sounds Percussion/Palpation: abdomen soft; abdomen nontender Musculoskeletal: Extremities: + petechiae (Petechiae and bruising involving the left lower extremity mainly the leg) Psychiatric: A+Ox3, euthymic affect Lymphatic: no cervical or axillary lymphadenopathy Results & Data Results & Data ([facility]) Vital Signs (Past 12 Hours) Vital Signs Temp Pulse Pulse Resp BP Pulse Ox Pulse Ox 11/18/21 07:20 36.5 C 72 19 137/83 98 11/18/21 03:49 36.8 C 73 18 135/81 96 11/17/21 23:22 36.8 C 80 20 142/87 H 97 11/17/21 22:40 97 11/17/21 22:19 80
--- NOTE | 2021-11-18 10:19 | Hospitalist Progress Note ---
Date of Service November 18, 2021 Assessment & Plan (1) Osteomyelitis of second toe of left foot: Plan: He has been complaining of left second toe redness and ulceration for the last 1 week which is started following cutting the nail MRI of the left foot showed interval development of mild diffuse marrow edema involving the middle and distal phalanges of the second toe characteristic of early osteomyelitis The wound is clearly seen as in the picture Surrounding edema and redness involving the second toe Bruising and petechial hemorrhages involving the left lower extremity without any DVT Has been on intravenous vancomycin and Zosyn-awaiting culture Appreciate Ortho input and recommendation Bedside I&D has been performed The patient is preferring nonsurgical measures He will have PICC line placement today and probable discharge tomorrow Status post PICC line placement this morning He will get the first dose of antibiotic through the PICC line and following that he will be discharged home (2) Cellulitis of second toe, left: Plan: Patient is a 61-year-old male with PMH DM II, HTN, HLD, fatty liver, alcohol use presented to ER with complaint of left second toe redness x 1 week followed by lower leg erythema after clipping toenails. Tactile fever last night. H/O left great toe amputation secondary to osteomyelitis on 09/20/2021. In ER pt afebrile, P: 105, R: 20, BP 96/61 up to 123/77, 96% on room air. WBC: 17. Left foot x-ray: No bony injury noted Has had IND by orthopedic surgeon Advised to continue dressing as per recommendation from the Ortho (3) Hyponatremia: Plan: Na: 129 corrected for glucose of 193 Serum and urine osmolality, urine sodium pending Hold HCTZ Sodium has been improving which is 132 as of 11/16/2021 Sodium level has been normalized (4) Hypokalemia: Plan: K: 3.4 Replace and monitor We will supplement more potassium and monitor No more hypokalemia (5) DM2 (diabetes mellitus, type 2): Plan: A1c: 10.6 on 09/15/21 Hold home meds Basal bolus insulin per protocol (6) HTN (hypertension): Plan: Hold lisinopril, HCTZ Monitor BP DVT Prophylaxis -Heparin SQ Full Code as per discussion with pt Follows with Dr Chon Garrido for routine care Will be discharged home this morning Admission and Anticipated Discharge Date Admission Date: November 17, 2021 Subjective 11/16/2021 The patient was seen and examined in medical telemetry unit He has been complaining of left second toe redness and ulceration for the last 1 week which is started following cutting the nail Condition has gotten worse for the last 2 days but no fever and no chills Denies any other symptoms during my examination 11/17/2021 The patient was seen and examined in medical telemetry unit He has been feeling much better denies any symptoms 11/18/2021 The patient was seen and examined in medical telemetry unit He remained stable and has had PICC line placement today He will get his IV antibiotics through PICC today and will be discharged home following that Review of Systems Review of Systems: All systems reviewed and are unremarkable except as noted below Physical Exam Constitutional: well developed, well nourished and + obese; not ill appearing Eyes: PERRL, conjunctivae normal, anicteric sclerae ENMT: external ear and nose normal, oropharynx normal Neck: trachea midline, no thyromegaly Respiratory: no respiratory distress Auscultation: lungs clear to auscultation bilaterally Cardiovascular: Rate/Rhythm: regular rate and regular rhythm; not tachycardic Heart Sounds: normal S1 and normal S2; no murmur Extremities: no edema Gastrointestinal (Abdomen): Inspection/Auscultation: + abdomen distended and normal bowel sounds Percussion/Palpation: abdomen soft; abdomen nontender Musculoskeletal: Extremities: + petechiae (Petechiae and bruising involving the left lower extremity mainly the leg) Skin: Left lower leg petechia and bruising have been improving Neurologic: Alert, awake and oriented x3 .no focal sensory and motor deficit appreciated Psychiatric: A+Ox3, euthymic affect Lymphatic: no cervical or axillary lymphadenopathy Results & Data Results & Data ([facility]) Vital Signs (Past 12 Hours) Vital Signs Temp Pulse Pulse Pulse Resp BP Pulse Ox 11/18/21 10:12 36.5 C 102 H 72 19 137/83 98 11/18/21 07:20 36.5 C 72 19 137/83 98 11/18/21 03:49 36.8 C 73 18 135/81 96 11/17/21 23:22 36.8 C 80 20 142/87 H 97 11/17/21 22:40 11/17/21 22:19 80 Pulse Ox 11/18/21 10:12 11/18/21 07:20 11/18/21 03:49 11/17/21 23:22 11/17/21 22:40 97 11/17/21 22:19 Laboratory Results Short CBC 11/18/21 Range/Units 06:17 WBC 5.75 (4.8-10.8) K/uL Hgb 11.2 L (14.0-18.0) g/dL Hct 33.9 L (42-52) % Plt Count 178 (130-400) K/uL BMP 11/18/21 06:17 Creatinine 0.74 Medications Administered Current Inpatient Medications Acetaminophen (Acetaminophen 325 Mg Tab) 650 mg PO Q4H PRN PRN Reason: Pain or Fever Stop: 12/15/21 22:39 Last Admin: 11/16/21 08:29 Dose: 650 mg Documented by: Aspirin (Aspirin 81 Mg Ectab) 81 mg PO DAILY RUSSEL Stop: 12/16/21 08:59 Last Admin: 11/18/21 09:00 Dose: 81 mg Documented by: Dextrose (Dextrose 50% 50 Ml Syringe) 25 - 50 ml IV UD PRN; Protocol PRN Reason: Hypoglycemia Protocol Stop: 12/15/21 22:39 Glucagon (Glucagon For Inj 1 Mg Vial) 1 mg SQ UD PRN; Protocol PRN Reason: Hypoglycemia Protocol Stop: 12/15/21 22:39 Glucose (Glucose 10 Tabs/Tube) 4 - 8 tabs PO UD PRN; Protocol PRN Reason: Hypoglycemia Protocol Stop: 12/15/21 22:39 Glucose (Glucose 40% Gel 15 Gm Tube) 15 - 30 gm PO UD PRN; Protocol PRN Reason: Hypoglycemia Protocol Stop: 12/15/21 22:39 Heparin Sodium (Beef Lung) (Heparin 10 Unit/Ml 5 Ml Flush) 5 ml FLUSH PRN PRN PRN Reason: Flush Stop: 12/18/21 10:08 Heparin Sodium (Porcine) (Heparin Sod 5,000 Unit/0.5 Ml Vial) 5,000 units SQ Q8H RUSSEL Stop: 12/16/21 00:00 Last Admin: 11/18/21 09:00 Dose: 5,000 units Documented by: Ceftriaxone Sodium 2,000 mg/ (Dextrose) 70 mls @ 100 mls/hr IV DAILY RUSSEL; Protocol Stop: 12/30/21 08:59 Last Infusion: 11/18/21 10:08 Dose: Infused Documented by: Insulin Aspart (Insulin Aspart Per Unit) 0 units SC ACHS [facility] Stop: 12/16/21 00:00 Last Admin: 11/18/21 09:12 Dose: Not Given Documented by: Insulin Glargine (Insulin Glargine Solostar 100 Units/Ml 3 Ml Pen) 0 - 8 units SC BID RUSSEL Stop: 12/16/21 00:00 Last Admin: 11/18/21 09:03 Dose: Not Given Documented by: Loratadine (Loratadine 10 Mg Tab) 10 mg PO DAILY RUSSEL Stop: 12/16/21 08:59 Last Admin: 11/18/21 09:00 Dose: 10 mg Documented by: Magnesium Hydroxide (Magnesium Hydroxide Susp 30 Ml Udc) 30 ml PO Q12H PRN PRN Reason: Constipation Stop: 12/15/21 22:39 Miscellaneous (Carbohydrates For Hypoglycemia ) 15 - 30 gm PO UD PRN PRN Reason: Hypoglycemia Protocol Stop: 12/15/21 22:39 Multivitamins (Multivitamin Tab) 1 tab PO DAILY RUSSEL Stop: 12/16/21 08:59 Last Admin: 11/18/21 09:00 Dose: 1 tab Documented by: Ondansetron HCl (Ondansetron Inj 2 Mg/Ml 2 Ml Vial) 4 mg IV Q6H PRN PRN Reason: Nausea Stop: 12/15/21 22:39 Pantoprazole Sodium (Pantoprazole 40 Mg Tab) 40 mg PO DAILY RUSSEL Stop: 12/16/21 08:59 Last Admin: 11/18/21 09:00 Dose: 40 mg Documented by: Polyethylene Glycol (Polyethylene (Miralax) 17 Gm Pack) 17 gm PO DAILY PRN PRN Reason: Constipation Stop: 12/15/21 22:39 Sodium Chloride (Sodium Chloride 0.65% Na Soln 45 Ml (Spink)) 1 sprays NA PRN PRN PRN Reason: Congestion Stop: 12/17/21 09:42
[2021-11-19] MEDS ORDERED: VANCOMYCIN TROUGH ONE (03:30)
--- NOTE | 2021-11-19 08:00 | Discharge Summary ---
Date of Service November 19, 2021 Admission HPI Per Admitting Provider Patient is a 61-year-old male with PMH DM II, HTN, HLD, fatty liver, alcohol use presented to ER with complaint of left second toe redness x 1 week. Patient states clipped his toenails a week ago and accidentally clipped skin as well and had some bleeding. Reports over the past week he has developed redness to second toe and past several days has noted redness, edema and discomfort to left lower leg. Unsure of any discharge from area. Reports tactile fever last night. Denies nausea, vomiting. Patient with history of left great toe amputation secondary to osteomyelitis on 09/20/2021. Denies diaphoresis, N/V/D/C, [place], dizziness, syncope, vision changes, neck pain, CP, SOB, orthopnea, palpitations, cough, sore throat, choking, otalgia, rhinorrhea, abdominal pain, paresthesias, weakness, extremity weakness, other extremity edema, rashes, urinary symptoms. In ER pt afebrile, P: 105, R: 20, BP 96/61 up to 123/77, 96% on room air. WBC: 17. Lactate: 1.7. Left foot x-ray: No bony injury noted In ER given Rocephin, vancomycin Admission Exam Per Admitting Provider Physical Exam: General: no distress, obese Head: normocephalic, atraumatic Eyes: conjunctiva non-injected, anicteric ENT: normal inspection external ears, nose, mucous membranes moist Neck: supple, trachea midline Lungs: clear, no respiratory distress, no wheezing/rhonchi/rales CV: +tachycardia, rate 104, regular rhythm, no murmur Abd: normal BS, soft, non-tender Ext: no cyanosis; +varicosities BLE. LLE: +edema, erythema and warmth to left lower leg, some red streaking noted anterior thigh, left 2nd toe with erythema, sensation to light touch intact, distal pulses intact Neuro: A&O x 3, no focal deficits noted, normal affect Skin: warm, dry Principal Diagnosis Left second toe osteomyelitis, group G beta streptococci sensitive to ceftriaxone, type 2 diabetes Discharge Exam Constitutional well developed, well nourished and + obese; not ill appearing Eyes PERRL, conjunctivae normal, anicteric sclerae ENMT external ear and nose normal, oropharynx normal Neck trachea midline, no thyromegaly Respiratory no respiratory distress Auscultation: lungs clear to auscultation bilaterally Cardiovascular Rate/Rhythm: regular rate and regular rhythm; not tachycardic Heart Sounds: normal S1 and normal S2; no murmur Extremities: no edema Gastrointestinal (Abdomen) Inspection/Auscultation: + abdomen distended and normal bowel sounds Percussion/Palpation: abdomen soft; abdomen nontender Musculoskeletal Extremities: + petechiae (Petechiae and bruising involving the left lower extremity mainly the leg) Psychiatric A+Ox3, euthymic affect Lymphatic no cervical or axillary lymphadenopathy Discharge Data Allergies Allergy/AdvReac Type Severity Reaction Status Date / Time No Known Allergies Allergy Unknown Verified 11/15/21 15:43 Consultations 11/15/21 16:14 ED Decision to Admit Stat 11/16/21 09:16 Consult Orthopedic Surgery Routine 11/16/21 16:04 Consult Infectious Diseases Routine Ordered Studies 11/15/21 17:10 US venous doppler LE LT Stat 11/15/21 17:20 MR foot LT w/o con Urgent Hospital Course (1) Osteomyelitis of second toe of left foot: He has been complaining of left second toe redness and ulceration for the last 1 week which is started following cutting the nail MRI of the left foot showed interval development of mild diffuse marrow edema involving the middle and distal phalanges of the second toe characteristic of early osteomyelitis The wound is clearly seen as in the picture Surrounding edema and redness involving the second toe Bruising and petechial hemorrhages involving the left lower extremity without any DVT Has been on intravenous vancomycin and Zosyn-awaiting culture Appreciate Ortho input and recommendation Bedside I&D has been performed The patient is preferring nonsurgical measures He will have PICC line placement today and probable discharge tomorrow Status post PICC line placement this morning He will get the first dose of antibiotic through the PICC line and following that he will be discharged home (2) Cellulitis of second toe, left: Patient is a 61-year-old male with PMH DM II, HTN, HLD, fatty liver, alcohol use presented to ER with complaint of left second toe redness x 1 week followed by lower leg erythema after clipping toenails. Tactile fever last night. H/O left great toe amputation secondary to osteomyelitis on 09/20/2021. In ER pt afebrile, P: 105, R: 20, BP 96/61 up to 123/77, 96% on room air. WBC: 17. Left foot x-ray: No bony injury noted Has had I&D by orthopedic surgeon Advised to continue dressing as per recommendation from the Ortho The wound culture grew group G beta streptococci which is sensitive to ampicil lourdes, cephalosporins, penicillins and vancomycin (3) Hyponatremia: Na: 129 corrected for glucose of 193 Serum and urine osmolality, urine sodium pending Hold HCTZ Sodium has been improving which is 132 as of 11/16/2021 Sodium level has been normalized (4) Hypokalemia: K: 3.4 Replace and monitor We will supplement more potassium and monitor No more hypokalemia (5) DM2 (diabetes mellitus, type 2): A1c: 10.6 on 09/15/21 Hold home meds Basal bolus insulin per protocol (6) HTN (hypertension): Hold lisinopril, HCTZ Monitor BP DVT Prophylaxis -Heparin SQ Full Code as per discussion with pt Follows with Dr Chon Garrido for routine care Will be discharged home this morning Total Time Total Time Spent Total Time Spent (In Minutes): 40 minutes Discharge Plan Discharge Items Patient Disposition: Home - Home Health Services Reason For Visit: TOE INFECTION Discharge Diagnosis: Left second toe osteomyelitis, type 2 diabetes Condition on Discharge: Fair Activity: Resume your previous activity Non-emergency contact: Primary Care Provider Call non-emergency contact if: you have any medication questions and your symptoms worsen Follow-up/Referrals: Chon Garrido, DO [Primary Care Provider] - (Your doctor's office will call with an appointment within 7 days) Diet: Carb Consistent or DM2 Addtl Attending Provider Instructions: Continue daily dressing changes. Pt may shower. Follow-up with Dr Vásquez 10-14 days, call [phone] for appt Please come to [facility] for intravenous ceftriaxone:[facility] appt [phone] on 11/19 and 1000 on 11/20 and likely 11/11 as well Please continue dressing as advised Please keep appointments with your healthcare providers Continue IV antibiotics for a total of 6 weeks Pending Studies at Discharge: Yes Studies:: Wound culture sensitivity Stand-Alone Forms: My [facility] [employer], Smoking Cessation Medications and DC Order Prescriptions: New Lactinex 1 million cell tablet,chewable 1 tab PO BID Qty: 60 RF: 0 Continued multivitamin Tablet 1 tab PO DAILY Qty: 0 RF: 0 aspirin 81 mg Tablet,Delayed Release (Dr/Ec) 81 mg PO DAILY RF: 0 acetaminophen 500 mg Tablet 1,000 mg PO DAILY RF: 0 omeprazole 20 mg Capsule,Delayed Release(Dr/Ec) 20 mg PO DAILY RF: 0 lisinopril-hydrochlorothiazide 20-25 mg Tablet 1 tab PO DAILY RF: 0 loratadine [Claritin] 10 mg Tablet 10 mg PO DAILY RF: 0 metformin 1,000 mg Tablet 1,000 mg PO BID Qty: 0 RF: 0 Lantus Solostar U-100 Insulin 100 unit/mL (3 mL) insulin pen 15 unit SC HS RF: 0 Discharge Orders: Discharge Order (Routine); Ordered 11/18/21 Ordered By: Mauricio Todd Admission Data Admit Date/Time: 11/17/21 15:03 Attending Provider: Mauricio Todd Admit Provider: Brian Villegas Primary Care Provider: Chon Garrido Other Providers: Brian Villegas ; Perez Simms ; Uvaldo Vásquez ; Kedar Krueger ; Ashlee Almaguer Thomas J ; Kim Baird ; Shakeel Merida ; Nick Morgan ; Brenton Villalobos Andrew J. ; Nick Rao ; Mckinley Kelley ; Kalen Victor ; Munir Castillo ; Marvin Peck ; Kim Estrella Casey R ; Levar Khan Lynn ; Smaniotto, John ; Roseline Bernabe ; Aniceto Gannon ; [facility] ; Jeremy Anand ; Naomi Mahan ; Adan Castillo I. ; Shad Del Cid II ; Emilie Real ; Brenton Leon ; Chacho Alston ; [facility] ; [facility],Home Health ; [facility],Referral Center ; [facility] Other Interventions: Discharge Summary Assessment (RN) Last Done: 11/18/21 10:12
== END 2021-11-18 11:24 | disposition home health service (06) | DRG 638 ==
LOC: EDINP 10:56 → ED 10:56 → SUATTDRO 16:30 → 2N 22:26